=== PATIENT | female | born 1970 | race Caucasian/White ===

== ENCOUNTER → 2017-06-06 08:17 | Outpatient (CLI) | payer OTHER, SELFPAY ==
[2017-06-06 12:28] LABS: Absolute Lymphocyte Count 1.12 X10^3/ul (0.83-4.51); Absolute Neutrophil Count 2.2 X10^3/uL (2.0-7.7); Basophil# 0.03 X10^3/uL; Basophil% 0.8 % (0-1); Eosinophil# 0.12 X10^3/uL; Eosinophils% 3.1 % (0-5); Hematocrit 42.9 % (37-47); Hemoglobin 13.8 g/dl (12.0-15.0); Lymphocyte # 1.12 X10^3/ul (4.0); Mean Corp Hgb Conc 32.2 g/gl (32-36); Mean Corpuscular Hgb 29.7 pg (27.0-32.0); Mean Corpuscular Volume 92.5 fL (81-99); Mean Platelet Vol. 11.5 fl (6.2-12.0); Monocyte# 0.35 X10^3/uL; Monocyte% 9.1 % (0-10); Neutrophil # 2.23 X10^3/uL (2.7-7.7); Neutrophil % 57.7 % (47-70); Platelet Count 269 K/mm3 (150-450); RBC Distribution Width CV 13.4 % (11.6-14.6); RBC Distribution Width SD 44.3 fl (35.1-43.9); Red Blood Count 4.64 M/mm3 (4.2-5.4); White Blood Count 3.9 K/mm3 (4.4-11.0)
[2017-06-06 12:39] LABS: D-Dimer Quantitative (DVT/PE) < 0.27 FEU/ug/m (0.27-0.49)
[2017-06-06 12:43] LABS: POSITIVE COUNT NO; POSITIVE DIFFERENTIAL NO; POSITIVE MORPHOLOGY NO
[2017-06-06 12:44] LABS: Vitamin B12 535 pg/mL (211-911)
[2017-06-06 13:11] LABS: ALB/GLOB Ratio 0.9 RATIO (0.9-2.4); AST(SGOT) 15 U/L (15-37); Alanine Aminotransfer ALT/SGPT 21 U/L (13-56); Albumin, Serum 3.8 g/dL (3.2-5.0); Alkaline Phosphatase 53 U/L (45-117); Anion Gap 9 (5-15); BUN 17 mg/dL (7-18); Calcium,Total 9.4 mg/dL (8.5-10.1); Chloride 101 mmol/L (98-107); Creatinine, Serum 1.06 mg/dL (0.55-1.02); EST Glomerular Filtration Rate 60 mL/min (>60); Est Glom Filt Rate - Afr Amer 72 mL/min (>60); Globulin 4.2 g/dL (2.2-4.2); Glucose 86 mg/dL (74-106); Potassium 4.4 mmol/L (3.5-5.1); Sodium Level 137 mmol/L (136-145); Thyroid Stim Hormone (TSH) 2.22 uIU/mL (0.358-3.74)
== END ==
PROVIDERS: Family Provider Family Medicine; PCP Family Medicine; Visit Provider Family Medicine
DX: I95.9 Hypotension, unspecified (principal); R42 Dizziness and giddiness; E78.5 Hyperlipidemia, unspecified
CPT/HCPCS: 36415; 80053; 82533; 82607; 84443; 85025; 85379

== ENCOUNTER → 2017-09-16 17:00 | Outpatient (CLI) | payer OTHER, SELFPAY ==
--- NOTE | 2017-09-16 17:00 | DT_ITS ---
This patient was seen during an EMR downtime September 15, 2017 - September 22, 2017. This patient may have a combination of paper and electronic documentation or all paper documentation. All documentation is viewable within the e-chart portion of [facility] for each patient visit.
[2017-09-21 19:28] LABS: Vitamin B12 393 pg/mL (211-911); Vitamin D,25 Hydroxy 31.2 ng/mL (29.95-100.01)
[2017-09-22 09:51] LABS: CRP < 2.90 mg/L (0.0-3.0); T4 Free Direct 0.91 ng/dL (0.76-1.46); Thyroid Stim Hormone (TSH) 1.26 uIU/mL (0.358-3.74)
[2017-09-22 09:55] LABS: Hematocrit 39.4 % (37-47); Hemoglobin 12.5 g/dl (12.0-15.0); Mean Corpuscular Volume 96.6 fL (81-99); Red Blood Count 4.21 M/mm3 (4.2-5.4); White Blood Count 4.3 K/mm3 (4.4-11.0)
[2017-09-22 09:56] LABS: Absolute Lymphocyte Count 1.44 X10^3/ul (0.83-4.51); Absolute Neutrophil Count 2.3 X10^3/uL (2.0-7.7); Basophil# 0.02 X10^3/uL; Basophil% 0.5 % (0-1); Eosinophil# 0.17 X10^3/uL; Eosinophils% 3.9 % (0-5); Lymphocyte # 1.44 X10^3/ul (4.0); Lymphocyte % 33.3 % (19-41); Mean Corp Hgb Conc 31.7 g/gl (32-36); Mean Corpuscular Hgb 29.7 pg (27.0-32.0); Mean Platelet Vol. 11.4 fl (6.2-12.0); Monocyte# 0.38 X10^3/uL; Monocyte% 8.8 % (0-10); Neutrophil # 2.32 X10^3/uL (2.7-7.7); Neutrophil % 53.5 % (47-70); POSITIVE COUNT NO; POSITIVE DIFFERENTIAL NO; Platelet Count 248 K/mm3 (150-450); RBC Distribution Width CV 12.9 % (11.6-14.6); RBC Distribution Width SD 43.2 fl (35.1-43.9)
[2017-09-22 09:57] LABS: Erythrocyte Sedimentation Rate 3 mm/hr (0-20)
== END ==
PROVIDERS: Family Provider Family Medicine; PCP Family Medicine; Visit Provider Family Medicine
DX: G62.9 Polyneuropathy, unspecified (principal); I95.9 Hypotension, unspecified; R42 Dizziness and giddiness
CPT/HCPCS: 36415; 82306; 82607; 84439; 84443; 85025; 85652; 86140

== ENCOUNTER → 2018-05-07 13:10 | Outpatient (CLI) | payer OTHER, SELFPAY ==
--- NOTE | 2018-05-07 13:14 | RAD_ITS ---
STUDY: X-RAY - LUMBOSACRAL SPINE REASON FOR EXAM: Female, 47 years old. Radiculopathy. TECHNIQUE: 7 view(s) of the lumbosacral spine were obtained with flexion and extension views. COMPARISON: None FINDINGS: Normal lumbar lordosis. There is no substantial scoliosis. There is normal alignment of the vertebrae. Normal flexion and extension with no subluxations. Normal vertebral bodies and endplates. Normal disc space heights. Normal bilateral sacral ala, sacroiliac joints, and visualized sacrum. Normal visualized soft tissue structures. RAD/L/S Spine Comp/w Bending Views IMPRESSION: Normal x-ray examination of the lumbosacral spine. Electronically Signed: Jb Barreto MD at 15:20 EST , Service support ,
== END ==
PROVIDERS: Family Provider Family Medicine; PCP Family Medicine; Referring Provider Psychiatry & Neurology Neurology; Visit Provider Psychiatry & Neurology Neurology
DX: M54.16 Radiculopathy, lumbar region (principal)
CPT/HCPCS: 72114

== ENCOUNTER → 2018-07-06 16:04 | Outpatient (CLI) | payer OTHER, SELFPAY ==
[2018-07-06 18:16] LABS: Hemoglobin A1c 5.2 % (4.2-6.3)
[2018-07-06 18:57] LABS: HIV - WCH Non-Reactive (Nonreactive)
[2018-07-06 19:16] LABS: Rheumatoid Factor < 10.0 IU/mL (<15)
[2018-07-08 17:38] LABS: Immunoglobulin A 345 mg/dL (87-352); Immunoglobulin G 1246 mg/dL (700-1600); Immunoglobulin M 148 mg/dL (26-217); PROEL- Albumin 3.6 g/dL (2.9-4.4); PROEL- Alpha-1 Globulin 0.2 g/dL (0.0-0.4); PROEL- Alpha-2 Globulin 0.7 g/dL (0.4-1.0); PROEL- Beta Globulin 1.1 g/dL (0.7-1.3); PROEL- Gamma Globulin 1.5 g/dL (0.4-1.8); PROEL- Globulin, Total 3.5 g/dL (2.2-3.9); PROEL- TOTAL PROTEIN 7.1 g/dL (6.0-8.5); RNP Ab 0.3 AI (0.0-0.9); Smith Ab <0.2 AI (0.0-0.9)
[2018-07-10 17:17] LABS: Hep C Antibodies <0.1 s/co ratio (0.0-0.9)
[2018-07-10 17:24] LABS: ANTINUCLEAR ANTIBODIES DIRECT Negative (Negative)
== END ==
PROVIDERS: Family Provider Family Medicine; PCP Family Medicine; Referring Provider Psychiatry & Neurology Neurology; Visit Provider Psychiatry & Neurology Neurology
DX: R73.9 Hyperglycemia, unspecified (principal); R53.83 Other fatigue; G62.9 Polyneuropathy, unspecified
CPT/HCPCS: 36415; 82784; 83036; 84165; 86038; 86235; 86334; 86431; 86703; 86803

== ENCOUNTER → 2018-12-04 | Outpatient (CLI) | payer OTHER, SELFPAY ==
--- NOTE | 2018-12-04 16:57 | CT_ITS ---
STUDY: CT MAXILLOFACIAL SINUSES REASON FOR EXAM: Female, 47 years old. Sinusitis RADIATION DOSAGE (If Supplied By Facility): CTDIvol = ( 29.38 ) mGy, DLP = ( 488.69 ) mGycm TECHNIQUE: The patient was scanned in a multi detector CT scanner. High resolution axial imaging was performed without the administration of intravenous contrast material. Sagittal and coronal images were reconstructed. Individualized dose optimization techniques were used for this CT. COMPARISON: None. FINDINGS: FRONTAL SINUSES: Normal aeration, without mucosal inflammatory disease. ETHMOIDAL SINUSES: Left ethmoid sinus disease is present. The right ethmoid sinus is normal. MAXILLARY SINUSES: Normal aeration, without mucosal inflammatory disease. SPHENOIDAL SINUSES: Normal aeration, without mucosal inflammatory disease. There are normal uncinate processes, ethmoid bullae, and hiatus semilunaris. Normal bilateral middle turbinates. Normal bilateral inferior turbinates. Normal midline nasal septum. There is patency of the bilateral nasal airways. The visualized osseous structures are normal. The visualized bilateral orbital contents are normal. CT/Sinus/Facial Bone IMPRESSION: Left ethmoid sinus disease. Normal osseous structures. Electronically Signed: Jed Frausto, at 20:59 EDT Tel , Service support ,
== END | disposition home or self-care (01) ==
LOC: CT 16:49
PROVIDERS: Family Provider Family Medicine; PCP Family Medicine; Referring Provider Otolaryngology Otolaryngology/Facial Plastic Surgery; Visit Provider Otolaryngology Otolaryngology/Facial Plastic Surgery
DX: J32.9 Chronic sinusitis, unspecified (principal)
CPT/HCPCS: 70486

== ENCOUNTER → 2019-04-09 16:13 | Outpatient (CLI) | payer OTHER, SELFPAY ==
--- NOTE | 2019-04-09 16:20 | RAD_ITS ---
HISTORY: 3 images of the sacrum and coccyx. 2 months of pain in the elbow. No comparison imaging of any kind. Findings: There is abrupt angulation between the first and second coccygeal segments. There is widening to the disc space between the first and second coccygeal segments. No cortical break is perceived. Pelvic phleboliths are present. Sacral alae are normal. SI joints are symmetric. Pubic symphysis sclerosis is minimal. RAD/Sacrum-Coccyx min 2 Views IMPRESSION: Diastases at the space between the first and second coccygeal segments with angulation possibly related to ligamentous injury. at 0614 Reported and signed by: Bryan Watson MD Electronically Signed: Bryan Watson MD at 6:13 EST Tel , Service support ,
== END ==
PROVIDERS: Family Provider Family Medicine; PCP Family Medicine; Referring Provider Family Medicine; Visit Provider Family Medicine
DX: M53.3 Sacrococcygeal disorders, not elsewhere classified (principal)
CPT/HCPCS: 72220

== ENCOUNTER 2019-11-19 09:30 | Outpatient (RCR) | payer OTHER, SELFPAY ==
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
--- NOTE | 2020-02-14 18:24 | HP.PT.NRP ---
MAGGIE CHÁVEZ was seen in my office for initial evaluation on 11/02/19. The following Plan of Care was established for this patient: Initial Frequency: 2-3x /Week Initial Duration: 4-6 Weeks Patient/Client Instruction: Educate patient on: Condition, Plan of Care, Risk Factors, Benefits of Fitness Program For the Purpose of:: To improve self management Therapeutic Exercise to Include: Strength training, Body mechanics, Postural training, Neuromotor development, In an aquatic setting, Dynamic Lumbar Stabilization TENS: Yes IF ES: Yes Cryotherapy (ice pack, ice massage): Yes Thermo therapy (hot pack): Yes Ultrasound (thermal/non thermal): Yes For the Purpose of:: To decrease pain, To decrease swelling/inflammation, To increase ROM, To improve nutrient delivery to tissue This patient was last seen in our office 11/19/19. Pertinent comments regarding their Physical therapy will appear below: This patient has not returned to Physical Therapy and is appropriate to return to MD for further follow-up as needed. At this point I will be discontinuing this patient from physical therapy. I would be happy to see this patient again in the future if found appropriate by the physician. Thank you! Alix Prara, PT, Cert MDT
== END 2019-11-19 19:00 | disposition home or self-care (01) ==
LOC: PT 09:30
PROVIDERS: PCP Family Medicine; Referring Provider Family Medicine; Visit Provider Family Medicine
DX: M53.3 Sacrococcygeal disorders, not elsewhere classified (principal)
CPT/HCPCS: 97014; 97035; 97110; 97112; 97162; 97530; G0283

== ENCOUNTER → 2021-01-25 07:57 | Outpatient (CLI) | payer OTHER, SELFPAY ==
--- NOTE | 2021-01-25 08:03 | VDLE_ITS ---
Reason For Study: Swelling RIGHT LEFT CFV is compressible, spontaneous, phasic, CFV is compressible, spontaneous, phasic, competent and demonstrates normal competent, and demonstrates normal augmentation. augmentation. FV is compressible, spontaneous, phasic, FV is compressible, spontaneous, phasic, competent and demonstrates normal competent and demonstrates normal augmentation. augmentation. POP V is compressible, spontaneous, phasic, POP V is compressible, spontaneous, phasic, competent and demonstrates normal competent and demonstrates normal augmentation. augmentation. T/P Trunk is compressible. T/P Trunk is compressible. PTV is compressible. PTV is compressible. RT PerV is compressible. LT PerV is compressible. SFJ is INCOMPETENT and measures 0.69 x 0.80 SFJ is INCOMPETENT and measures 0.43 x 0.54 cm. cm. GSV proximal thigh measures 0.26 x 0.31 cm. GSV proximal thigh measures 0.23 x 0.29 cm. GSV at knee measures 0.15 x 0.16 cm. GSV at knee measures 0.15 x 0.16 cm. GSV is competent throughout. GSV is competent throughout. SSV at junction is competent and measures SSV at junction is competent and measures 0.11 x 0.13 cm. 0.17 x 0.18 cm. Procedure This is a venous duplex using B-mode, color flow and spectral Doppler. Exam performed in department. Technically difficult study due to vessel size. VL/Venous Duplex US - Nam Extrem Interpretation Summary Deep veins of the lower extremities are bilaterally patent and compressible seg mentally. There is no evidence of deep vein thrombosis on either side. Valvular competence appears in tact within the proximal deep venous systems bilaterally. The great saphenous veins appear bila terally patent and compressible segmentally. Sapheno-femoral junctions are bilaterally incompetent . Valvular competence appears to be intact segmentally within the great saphenous veins bi laterally. Small saphenous veins are patent and competent bilaterally. Ordering Physician: Carlos Sexton Referring Physician: Allen Berry Performed By: Tahira Frank RVT
== END ==
PROVIDERS: PCP Family Medicine; Referring Provider Surgery; Visit Provider Surgery
DX: M79.604 Pain in right leg (principal); M79.89 Other specified soft tissue disorders; M79.605 Pain in left leg
CPT/HCPCS: 93970

== ENCOUNTER → 2021-10-19 | Outpatient (CLI) | payer OTHER, SELFPAY | END | disposition home or self-care (01) | LOC: LABSPEC 15:04 | PROVIDERS: PCP Family Medicine; Referring Provider Family Medicine; Visit Provider Family Medicine | DX: N30.00 Acute cystitis without hematuria (principal) | CPT/HCPCS: 87077; 87086; 87088; 87186 ==

== ENCOUNTER → 2021-12-25 | Outpatient (CLI) | payer OTHER, SELFPAY | END | disposition home or self-care (01) | PROVIDERS: PCP Family Medicine; Visit Provider Family Medicine | DX: N30.00 Acute cystitis without hematuria (principal) | CPT/HCPCS: 87077; 87086; 87088; 87186 ==

== ENCOUNTER → 2022-06-08 | Outpatient (CLI) | payer OTHER, SELFPAY ==
[2022-06-08 14:49] LABS: Bacteria 0 SEEN /hpf (None Seen); Mucous, Urine 0 SEEN /hpf (<or=2+); Red Blood Cells-Urine 0 SEEN /hpf (0-5)
[2022-06-08 14:58] LABS: Color, Urine Yellow (Yellow); Glucose, Dipstick Normal (Normal); Ketone-Dipstick Negative (Negative); Leukocyte Esterase-Dipstick 25 /ul (Negative); Nitrite-Dipstick Negative (Negative); Occult Blood-Urine 25 /ul (Negative); Protein-Dipstick Negative (Negative); Specific Gravity, Urine 1.005 (1.002-1.030); Urine Bilirubin Dipstick Negative (Negative); Urine Clarity Clear (Clear); Urine Urobilinogen Normal (Normal)
[2022-06-08 15:25] LABS: Squamous Epithelial Cells - UA 0-5 SEEN /hpf (5-10); White Blood Cells 0-5 SEEN /hpf (0-5)
== END | disposition home or self-care (01) ==
PROVIDERS: PCP Family Medicine; Visit Provider Physician Assistant Medical
DX: R30.0 Dysuria (principal)
CPT/HCPCS: 81001; 87086; 87088

== ENCOUNTER 2022-06-17 07:54 | Emergency (ER) | payer OTHER, SELFPAY ==
[2022-06-17 07:54] VITALS: BP 136/70; PULSE 60; RESP 18; TEMP 36.2; O2SAT 100; BMI 20.9
--- NOTE | 2022-06-17 08:04 | EDS_ITS ---
HPI HPI - Female History of Present Illness Chief Complaint: Complaint Narrative Narrative: 51-year-old female who denies significant past medical history presents with hematuria and right flank pain along with burning with urination for the last 9 days. She states her symptoms began approximately 9 days ago, a week ago on Friday. She went to urgent care because of bright red blood in her urine and burning with urination. She has had previous UTIs in the past. She denies any fever but may have felt chilled over the week. She has right low back pain. She was diagnosed with a UTI and placed on Macrobid for approximately 7 days. She finished her antibiotics on Friday, 4 days ago. While she noted mild improvement in her symptoms, they never completely resolved. This morning, she thought she started her menses again because she had bright red blood, but this time it was in her urine again. She denies any vaginal bleeding. No exacerbating or alleviating factors. She denies daily medication use except for supplements. No blood thinners, but she did take Advil this morning. [facility] Medical History Acute maxillary sinusitis, unspecified Home Medications sulfamethoxazole 800 mg-trimethoprim 160 mg tablet (Bactrim DS) 1 tab PO BID #14 tabs 06/17/22 [Rx Last Taken Unknown] Allergy/AdvReac Type Severity Reaction Status Date / Time No Known Allergies Allergy Unverified 06/08/22 08:35 Family History Other Heart disease Social History Smoking Status: Never smoker ROS ROS ED ROS Narrative Constitutional: No fever, no chills. HEENT: No sore throat. No neck pain. No loss of vision. No rhinorrhea. Cardiovascular: No chest pain. No palpitations. No pedal edema. Respiratory: No cough, no shortness of breath. Abdominal: No abdominal pain. No nausea. No vomiting. Genitourinary: Positive burning with urination. Positive hematuria. Right low back pain. Musculoskeletal: No myalgias. No arthralgias. Neurologic: No headaches. No dizziness. No lightheadedness. Skin: No rash. No change in color. Psychiatric: No depression. No anxiety. EXAM Physical Exam Narrative Exam Narrative: Afebrile. Vital signs noted. HEENT: Normocephalic. Atraumatic. PERRL, EOMI. Neck soft and supple. No point tenderness or step off. Cardiovascular: Regular rate and rhythm. No murmurs, rubs, or gallops appreciated. Respiratory: No tachypnea. Lungs clear to auscultation bilaterally. Gastrointestinal: Abdomen soft, nontender, with normoactive bowel sounds. No rebound or guarding. No CVA tenderness to percussion bilaterally. Neurological: Awake. Alert. Nonfocal, nonlateralizing. Skin: No rash. Normal color. No pallor. Musculoskeletal: No pedal edema. Full range of motion extremities. Const Vital Signs: 06/17/22 07:54 Temperature 97.2 F L Temperature Source Temporal Pulse Rate 60 Respiratory Rate 18 Blood Pressure 136/70 H Blood Pressure Mean 92 Pulse Ox 100 Oxygen Delivery Method Room Air MDM MDM MDM Narrative Medical decision making narrative: With her finishing a week's worth of antibiotics, she could have a continued UTI secondary to antibiotic resistance. Additionally, with her right low back pain and gross hematuria, she may have ureterolithiasis. She declines pain medications currently as she has already taken Advil this morning. Comprehensive work-up was pursued to rule out ureterolithiasis. I do feel CT imaging is indicated. I will also obtain a CBC and a BMP to make sure that she has not lost a large amount of blood, and additionally to check her renal function. She was administered IV fluids at a rate of 250 mL/h. Serum test was also obtained although she states her has had a vasectomy. I reviewed the patient's laboratory work. She has normal white count of 5.2, hemoglobin normal at 13.6. In review of her BMP, she has slightly elevated BUN of 19 with creatinine 1.09. Glucose 96 and normal. Normal anion gap of 5. Serum is negative. I reviewed her radiology report for her CT which shows no evidence of bladder polyps, no ureterolithiasis. No evidence of acute process. At this point in time, after review of her urinalysis, she does have 25-50 red cells and 25-50 WBCs. This will be her second round of antibiotics so I sent her urine for culture. She was started on Bactrim DS to take twice daily for the next week. She declined her first dose of antibiotic here in the emergency department. Prescription was written. She will follow-up with her primary care provider in 3 to 5 days. I feel she can be discharged safely home with follow-up. Return instructions to the emergency department were reviewed. Disposition is discharged home in stable condition. Lab Data Attestation: I reviewed the patient's lab results. Labs: Laboratory Results - last 24 hr 06/17/22 06/17/22 06/17/22 08:26 08:26 08:26 WBC 5.2 RBC 4.53 Hgb 13.6 Hct 41.9 MCV 92.5 MCH 30.0 MCHC 32.5 RDW Std Deviation 42.5 RDW Coeff of Rae 12.4 Plt Count 265 MPV 9.9 Immature Gran % (Auto) 0.200 Neut % (Auto) 68.1 Lymph % (Auto) 22.8 Frontier % (Auto) 7.5 Eos % (Auto) 0.8 Baso % (Auto) 0.6 Absolute Neuts (auto) 3.6 Absolute Lymphs (auto) 1.19 Nucleated RBC % 0 Sodium 137 Potassium 4.3 Chloride 104 Carbon Dioxide 28.0 Anion Gap 5 BUN 19 H Creatinine 1.09 H Estim Creat Clear Calc 61.43 Est GFR (MDRD) Af Amer 69 Est GFR (MDRD) Non-Af 57 L BUN/Creatinine Ratio 17.4 Glucose 96 Calcium 9.6 Serum , Qual NEGATIVE Urine Color Urine Clarity Urine pH Ur Specific [place] Urine Protein Urine Glucose (UA) Urine Ketones Urine Occult Blood Urine Nitrite Urine Bilirubin Urine Urobilinogen Ur Leukocyte Esterase Urine RBC Urine WBC Ur Squamous Epith Cells Urine Bacteria Urine Mucus 06/17/22 08:51 WBC RBC Hgb Hct MCV MCH MCHC RDW Std Deviation RDW Coeff of Rae Plt Count MPV Immature Gran % (Auto) Neut % (Auto) Lymph % (Auto) Frontier % (Auto) Eos % (Auto) Baso % (Auto) Absolute Neuts (auto) Absolute Lymphs (auto) Nucleated RBC % Sodium Potassium Chloride Carbon Dioxide Anion Gap BUN Creatinine Estim Creat Clear Calc Est GFR (MDRD) Af Amer Est GFR (MDRD) Non-Af BUN/Creatinine Ratio Glucose Calcium Serum , Qual Urine Color Yellow Urine Clarity Sl. Cloudy Urine pH 7.0 Ur Specific [place] 1.005 Urine Protein 30 H Urine Glucose (UA) Normal Urine Ketones Negative Urine Occult Blood 250 H Urine Nitrite Negative Urine Bilirubin Negative Urine Urobilinogen Normal Ur Leukocyte Esterase 500 H Urine RBC 25-50 SEEN Urine WBC 25-50 SEEN Ur Squamous Epith Cells 0-5 SEEN Urine Bacteria 1+ Urine Mucus 0 SEEN Radiography Diagnostic Testing: Clinical Impression(s) from Imaging Studies Abdomen/Pelvis CT 06/17/22 08:04 IMPRESSION: Normal unenhanced CT of the abdomen and pelvis. Electronically Signed: Asa Hankins MD at 9:16 EST , Discharge Plan Triage Chief Complaint: Complaint ED Provider: Rizwan Lazcano Dx/Rx/DC Orders Clinical Impression: Dysuria, UTI (urinary tract infection), Hematuria Instructions: ED Hematuria, ED Cystitis Female Adult Prescriptions: New sulfamethoxazole-trimethoprim [Bactrim DS] 800-160 mg tablet 1 tab PO BID Qty: 14 0RF Primary Care Provider: Care Physician,No Primary Referrals: Allen Berry MD [Non-Staff] - 3-5 Days if not improving Disposition Disposition: Home, Self Care
--- NOTE | 2022-06-17 08:04 | CT_ITS ---
STUDY: CT ABDOMEN AND PELVIS WITHOUT CONTRAST REASON FOR EXAM: Female, 51 years old. UTI. Recently treated. Microscopic hematuria. RADIATION DOSAGE (If Supplied By Facility): CTDIvol = ( 6.61 ) mGy, DLP = ( 336.81 ) mGycm TECHNIQUE: Transaxial images were obtained from the dome of the diaphragm to the symphysis pubis without oral contrast, and without intravenous contrast. Sagittal and coronal images were reconstructed. Individualized dose optimization techniques were used for this CT. COMPARISON: None. FINDINGS: The visualized lung bases are unremarkable. The visualized portions of the heart are within normal limits. Normal liver. Normal gallbladder and extrahepatic biliary system. Normal spleen. Normal pancreas. Normal bilateral adrenal glands. Normal right kidney. Normal left kidney. Normal visualized stomach. Normal small intestine. Normal colon. The appendix is visualized and appears normal. Normal abdominal aorta. Normal inferior vena cava. Normal retroperitoneum. Normal urinary bladder. Enlarged fibroid uterus. Normal abdominal wall. Normal osseous structures. CT/Abdomen/Pelvis without Cont IMPRESSION: Normal unenhanced CT of the abdomen and pelvis. Electronically Signed: Asa Hankins MD at 9:16 EST ,
[2022-06-17] MEDS: 0.9% Normal Saline 1,000 ML 250 ML IV (08:25)
[2022-06-17 08:33] LABS: Absolute Lymphocyte Count 1.19 X10^3/uL (0.83-4.51); Absolute Neutrophil Count 3.6 X10^3/uL (2.0-7.7); Basophil# 0.03 X10^3/uL; Basophil% 0.6 % (0-1); Eosinophil# 0.04 X10^3/uL; Eosinophils% 0.8 % (0-5); Hematocrit 41.9 % (37-47); Hemoglobin 13.6 g/dL (12.0-15.0); Lymphocyte # 1.19 X10^3/ul (0.83-4.51); Lymphocyte % 22.8 % (19-41); Mean Corp Hgb Conc 32.5 g/dL (32-36); Mean Corpuscular Volume 92.5 fL (81-99); Mean Platelet Vol. 9.9 fl (6.2-12.0); Monocyte# 0.39 X10^3/uL; Monocyte% 7.5 % (0-10); NRBC Flagged by Analyzer 0 % (0-5); Neutrophil # 3.57 X10^3/uL (2.7-7.7); Neutrophil % 68.1 % (47-70); Platelet Count 265 K/mm3 (150-450); RBC Distribution Width CV 12.4 % (11.6-14.6); RBC Distribution Width SD 42.5 fl (35.1-43.9); Red Blood Count 4.53 M/mm3 (4.2-5.4); White Blood Count 5.2 K/mm3 (4.4-11.0)
[2022-06-17 08:40] LABS: Internal QC Validated? YES +Cl - CLEAR BKGD; Pregnancy, Serum, hCG Quali. NEGATIVE Negative
[2022-06-17 08:47] LABS: Anion Gap 5 (5-15); BUN 19 mg/dL (7-18); BUN/Creat Ratio 17.4 RATIO (10-20); Calcium,Total 9.6 mg/dL (8.5-10.1); Chloride 104 mmol/L (98-107); Creatinine, Serum 1.09 mg/dL (0.55-1.02); EST Glomerular Filtration Rate 57 mL/min (>60); Est Glom Filt Rate - Afr Amer 69 mL/min (>60); Estimated Creatinine Clearance 61.43 ml/min; Glucose 96 mg/dL (74-106); Potassium 4.3 mmol/L (3.5-5.1); Sodium Level 137 mmol/L (136-145)
[2022-06-17 08:57] LABS: Mucous, Urine 0 SEEN /hpf (<or=2+)
[2022-06-17 08:59] LABS: Color, Urine Yellow (Yellow); Glucose, Dipstick Normal (Normal); Ketone-Dipstick Negative (Negative); Leukocyte Esterase-Dipstick 500 /ul (Negative); Nitrite-Dipstick Negative (Negative); Occult Blood-Urine 250 /ul (Negative); Protein-Dipstick 30 mg/dl (Negative); Specific Gravity, Urine 1.005 (1.002-1.030); Urine Bilirubin Dipstick Negative (Negative); Urine Clarity Sl. Cloudy (Clear); Urine Urobilinogen Normal (Normal)
[2022-06-17 09:10] LABS: Bacteria 1+ /hpf (None Seen); Red Blood Cells-Urine 25-50 SEEN /hpf (0-5); White Blood Cells 25-50 SEEN /hpf (0-5)
[2022-06-17 09:11] LABS: Squamous Epithelial Cells - UA 0-5 SEEN /hpf (5-10)
== END 2022-06-17 11:09 | disposition home or self-care (01) ==
PROVIDERS: Emergency Provider Emergency Medicine; Visit Provider Emergency Medicine
DX: N39.0 Urinary tract infection, site not specified (principal); R31.9 Hematuria, unspecified; R30.0 Dysuria
CPT/HCPCS: 74176; 80048; 81001; 84703; 85025; 87077; 87086; 87088; 87186; 99282; J7030

== ENCOUNTER 2022-12-16 21:33 | Emergency (ER) | payer OTHER, SELFPAY ==
[2022-12-16 21:34] VITALS: BP 114/62; PULSE 72; RESP 16; TEMP 36.2; BMI 20.2
--- NOTE | 2022-12-16 21:57 | EX.ED.DYSGE1 ---
HPI History of Present Illness Chief Complaint: Abd Pain Narrative Narrative: 52-year-old female who denies significant past medical history presents with UTI type symptoms that began this morning. She states that she started having pain with urination, and burning. It has gotten progressively worse throughout the day. She states that she seems to get frequent urinary tract infections, the last being in July when she had blood in her urine. She has noticed hematuria today. She denies any fever but has had chills. No nausea or vomiting. No back pain. No exacerbating or alleviating factors. Prior similar symptoms: Yes PFSH PFSH Medical History Acute maxillary sinusitis, unspecified Home Medications sulfamethoxazole 800 mg-trimethoprim 160 mg tablet (Bactrim DS) 1 tab PO BID #14 tabs 06/17/22 [Rx Last Taken Unknown] sulfamethoxazole 800 mg-trimethoprim 160 mg tablet (Bactrim DS) 1 tab PO BID #14 tabs 12/16/22 [Rx Last Taken Unknown] Allergy/AdvReac Type Severity Reaction Status Date / Time No Known Allergies Allergy Verified 12/16/22 21:38 Family History Other Heart disease Social History Smoking Status: Never smoker ROS ROS ED ROS Narrative Constitutional: No fever, no chills. HEENT: No sore throat. No neck pain. No loss of vision. No rhinorrhea. Cardiovascular: No chest pain. No palpitations. No pedal edema. Respiratory: No cough, no shortness of breath. Abdominal: No abdominal pain. No nausea. No vomiting. Genitourinary: Positive dysuria. Positive hematuria. Mild urinary frequency. Musculoskeletal: No myalgias. No arthralgias. Neurologic: No headaches. No dizziness. No lightheadedness. Skin: No rash. No change in color. Psychiatric: No depression. No anxiety. EXAM Physical Exam Narrative Exam Narrative: Afebrile. Vital signs noted. HEENT: Normocephalic. Atraumatic. PERRL, EOMI. Neck soft and supple. No point tenderness or step off. Cardiovascular: Regular rate and rhythm. No murmurs, rubs, or gallops appreciated. Respiratory: No tachypnea. Lungs clear to auscultation bilaterally. Gastrointestinal: Abdomen soft, nontender, with normoactive bowel sounds. No rebound or guarding. No CVA tenderness to percussion bilaterally. Neurological: Awake. Alert. Nonfocal, nonlateralizing. Skin: No rash. Normal color. No pallor. Musculoskeletal: No pedal edema. Full range of motion extremities. Const Vital Signs: 12/16/22 21:34 12/16/22 21:34 Temperature 97.2 F L 97.2 F L Temperature Source Temporal Temporal Pulse Rate 72 72 Respiratory Rate 16 16 Blood Pressure 114/62 114/62 Blood Pressure Mean 79 79 MDM MDM MDM Narrative Medical decision making narrative: I have low concern for ureterolithiasis, and think she probably has more of a simple cystitis. Pyelonephritis is lower on the differential based on her clinical exam. I do not feel that laboratory work is indicated/blood work. Her urine will be sent for analysis along with culture as she states she gets frequent UTIs. She states that Bactrim seem to work for her last time she had a UTI. Additionally as she is 52, has not gone through menopause, I will obtain a urine test. I reviewed her laboratory work and she has RBCs greater than 100 with 50-100 WBCs with 0 squamous epithelial cells and 2+ bacteria, negative nitrites. This was sent for culture. She was given her first dose of Bactrim here in the emergency department and a prescription written to take twice a day for the next week. Additionally, she states that she bought Azo [id number], but did not want to take it because she read the back of the box, and does not want any side effects listed. At this point in time, I feel she be discharged safely home with follow-up to her primary care provider. Return instructions were reviewed. Disposition is discharged home in stable condition. History & Record Review Discussion w/independent historian: Patient Additional record(s) reviewed:: Prior ED visit and Prior labs Lab Data Attestation: I reviewed the patient's lab results. Labs: Laboratory Results - last 24 hr 12/16/22 22:06 Urine Color Yellow Urine Clarity Clear Urine pH 7.0 Ur Specific [place] 1.010 Urine Protein 30 H Urine Glucose (UA) Normal Urine Ketones Negative Urine Occult Blood 250 H Urine Nitrite Negative Urine Bilirubin Negative Urine Urobilinogen Normal Ur Leukocyte Esterase 500 H Urine RBC > 100 SEEN Urine WBC 50-100 SEEN Ur Squamous Epith Cells 0 SEEN Urine Bacteria 2+ Urine Mucus 0 SEEN Urine Test Negative Discharge Plan Triage Chief Complaint: Abd Pain ED Provider: Rizwan Lazcano Dx/Rx/DC Orders Clinical Impression: UTI (urinary tract infection), Hematuria Instructions: ED Hematuria, ED Cystitis Female Adult Prescriptions: New sulfamethoxazole-trimethoprim [Bactrim DS] 800-160 mg tablet 1 tab PO BID Qty: 14 0RF No Action sulfamethoxazole-trimethoprim [Bactrim DS] 800-160 mg tablet 1 tab PO BID Qty: 14 0RF Primary Care Provider: Care Physician,No Primary Referrals: Ruth Palmer MD [Med Staff - Referral Specialist] - 3-5 Days if not improving Care Physician,No Primary [Primary Care Provider] - Activity Restrictions/Additional Instructions: Follow-up with your primary care provider in 3 to 5 days if not improving. You have been referred to a primary care physician if you do not have 1. Take all of the antibiotics as prescribed until course of therapy is complete. Return with fever, increased pain, inability to take your antibiotic, new or worsening symptoms. Disposition Disposition: Home, Self Care
[2022-12-16 22:10] LABS: Mucous, Urine 0 SEEN /hpf (<or=2+); Squamous Epithelial Cells - UA 0 SEEN /hpf (5-10)
[2022-12-16 22:16] LABS: Color, Urine Yellow (Yellow); Glucose, Dipstick Normal (Normal); Ketone-Dipstick Negative (Negative); Leukocyte Esterase-Dipstick 500 /ul (Negative); Nitrite-Dipstick Negative (Negative); Occult Blood-Urine 250 /ul (Negative); Protein-Dipstick 30 mg/dl (Negative); Urine Bilirubin Dipstick Negative (Negative); Urine Clarity Clear (Clear); Urine Urobilinogen Normal (Normal)
[2022-12-16 22:40] LABS: Bacteria 2+ /hpf (None Seen); Red Blood Cells-Urine > 100 SEEN /hpf (0-5); White Blood Cells 50-100 SEEN /hpf (0-5)
[2022-12-16 22:53] LABS: Internal QC Validated? YES +Cl - CLEAR BKGD; Pregnancy, Urine Negative Negative; Record Kit Lot#,Urine Preg 667200
[2022-12-16] MEDS: Smz/Tmp Ds Tablet 1 TABLET PO (23:05)
== END 2022-12-16 23:07 | disposition home or self-care (01) ==
PROVIDERS: Emergency Provider Emergency Medicine; Visit Provider Emergency Medicine
DX: N39.0 Urinary tract infection, site not specified (principal); R31.9 Hematuria, unspecified
CPT/HCPCS: 81001; 81025; 87077; 87086; 87088; 87186; 99283

== ENCOUNTER → 2022-12-24 | Outpatient (CLI) | payer OTHER, SELFPAY ==
[2022-12-24 10:09] LABS: Absolute Lymphocyte Count 1.25 X10^3/uL (0.83-4.51); Absolute Neutrophil Count 0.9 X10^3/uL (2.0-7.7); Basophil# 0.04 X10^3/uL; Basophil% 1.5 % (0-1); Eosinophil# 0.09 X10^3/uL; Eosinophils% 3.4 % (0-5); Hematocrit 39.3 % (37-47); Hemoglobin 12.8 g/dL (12.0-15.0); Lymphocyte # 1.25 X10^3/ul (0.83-4.51); Lymphocyte % 46.8 % (19-41); Mean Corp Hgb Conc 32.6 g/dL (32-36); Mean Corpuscular Hgb 30.1 pg (27.0-32.0); Mean Corpuscular Volume 92.5 fL (81-99); Mean Platelet Vol. 10.1 fl (6.2-12.0); Monocyte# 0.37 X10^3/uL; Monocyte% 13.9 % (0-10); NRBC Flagged by Analyzer 0 % (0-5); Neutrophil # 0.92 X10^3/uL (2.7-7.7); Neutrophil % 34.4 % (47-70); POSITIVE DIFFERENTIAL YES; Platelet Count 249 K/mm3 (150-450); RBC Distribution Width CV 12.5 % (11.6-14.6); RBC Distribution Width SD 42.4 fl (35.1-43.9); Red Blood Count 4.25 M/mm3 (4.2-5.4); White Blood Count 2.7 K/mm3 (4.4-11.0)
[2022-12-24 10:16] LABS: Differential Indicated SCAN CRITERIA MET
[2022-12-24 10:46] LABS: Vitamin B12 534 pg/mL (211-911)
[2022-12-24 10:58] LABS: AST(SGOT) 21 U/L (15-37); Alanine Aminotransfer ALT/SGPT 21 U/L (13-56); Albumin, Serum 3.7 g/dL (3.2-5.0); Alkaline Phosphatase 45 U/L (45-117); Anion Gap 7 (5-15); BUN 15 mg/dL (7-18); BUN/Creat Ratio 11.7 RATIO (10-20); Calcium,Total 8.9 mg/dL (8.5-10.1); Chloride 107 mmol/L (98-107); Cholesterol 170 mg/dL (200); Creatinine, Serum 1.28 mg/dL (0.55-1.02); EST Glomerular Filtration Rate 47 mL/min (>60); Est Glom Filt Rate - Afr Amer 57 mL/min (>60); Ferritin 66 ng/mL (8-252); Globulin 3.7 g/dL (2.2-4.2); Glucose 99 mg/dL (74-106); High Density Lipoprotein 55 mg/dL; Iron 67 ug/dL (50-170); Potassium 4.3 mmol/L (3.5-5.1); Protein, Total 7.4 g/dL (6.4-8.2); Sodium Level 139 mmol/L (136-145); T4 Free Direct 0.84 ng/dL (0.76-1.46); Thyroid Stim Hormone (TSH) 3.38 uIU/mL (0.358-3.74); Triglycerides 81 mg/dL; Very Low Density Lipoprotein 16 mg/dL (5-40)
== END | disposition home or self-care (01) ==
LOC: MTLAB 08:54
PROVIDERS: PCP Nurse Practitioner Family; Visit Provider Nurse Practitioner Family
DX: Z00.01 Encounter for general adult medical examination with abnormal findings (principal); R53.83 Other fatigue
CPT/HCPCS: 36415; 80053; 80061; 82306; 82607; 82728; 83540; 84439; 84443; 85025

== ENCOUNTER 2023-03-05 23:18 | Emergency (ER) | payer OTHER, SELFPAY ==
[2023-03-05 23:18] VITALS: BP 128/63; PULSE 73; RESP 16; TEMP 36.9; O2SAT 100; BMI 21.3
[2023-03-06 00:14] LABS: Mucous, Urine 0 SEEN /hpf (<or=2+)
[2023-03-06] MEDS: Ceftriaxone 1 GM/50 ML BAG IV (00:16)
[2023-03-06] MEDS: Phenazopyridine 95 MG Tablet 190 MG PO (00:18)
[2023-03-06 00:19] LABS: Glucose, Dipstick Normal (Normal); Ketone-Dipstick Negative (Negative); Leukocyte Esterase-Dipstick 500 /ul (Negative); Nitrite-Dipstick Negative (Negative); Occult Blood-Urine 250 /ul (Negative); Protein-Dipstick 30 mg/dl (Negative); Urine Bilirubin Dipstick Negative (Negative); Urine Clarity Sl. Cloudy (Clear); Urine Urobilinogen Normal (Normal)
[2023-03-06 00:24] LABS: Color, Urine SEE COMMENT BELOW (Yellow)
[2023-03-06 00:29] LABS: Bacteria 2+ /hpf (None Seen); Red Blood Cells-Urine 5-10 SEEN /hpf (0-5); Squamous Epithelial Cells - UA 0-5 SEEN /hpf (5-10); White Blood Cells 25-50 SEEN /hpf (0-5)
--- NOTE | 2023-03-06 00:56 | EDS_ITS ---
HPI History of Present Illness Chief Complaint: Complaint Informant: patient and spouse/S.O. Narrative Narrative: Patient is a 52-year-old female with past medical history of recurrent UTIs and previous thrush. She states that in the last 2 to 3 hours she has had increased urinary frequency urgency and dysuria. She denies any vaginal discharge or concern for STDs or concern for . Denies any fevers chills or back pain. States that the symptoms are consistent with her previous UTIs and secondary to this she presents for evaluation [facility] Medical History Acute maxillary sinusitis, unspecified Home Medications sulfamethoxazole 800 mg-trimethoprim 160 mg tablet (Bactrim DS) 1 tab PO BID #14 tabs 06/17/22 [Rx Last Taken Unknown] sulfamethoxazole 800 mg-trimethoprim 160 mg tablet (Bactrim DS) 1 tab PO BID #14 tabs 12/16/22 [Rx Last Taken Unknown] cephalexin 500 mg capsule 500 mg PO TID 7 days #21 caps 03/06/23 [Rx Last Taken Unknown] fluconazole 150 mg tablet 150 mg PO DAILY 1 dose #1 TAB 03/06/23 [Rx Last Taken Unknown] phenazopyridine 200 mg tablet (Pyridium) 200 mg PO TID PRN pain 3 days #9 tabs 03/06/23 [Rx Last Taken Unknown] Allergy/AdvReac Type Severity Reaction Status Date / Time No Known Allergies Allergy Verified 12/16/22 21:38 Family History Other Heart disease Social History Smoking Status: Never smoker ROS [facility] ED Constitutional Constitutional ED: Denies chills or fever(s) ENT ENT ED: Denies sore throat Cardiovascular Cardiovascular: Denies chest pain Respiratory/Chest Respiratory/Chest: Denies cough or dyspnea Gastrointestinal Gastrointestinal: Reports abdominal pain; Denies diarrhea, nausea or vomiting Genitourinary Genitourinary ED: Reports dysuria and urinary frequency Musculoskeletal Musculoskeletal: Denies back pain or myalgias Integumentary Denies rash Neurologic Neurologic: Denies headache(s) Hematologic/Lymphatic Hematologic/Lymphatic: Denies easy bleeding or easy bruising EXAM Physical Exam Const Vital Signs: 03/05/23 23:18 Temperature 98.4 F Temperature Source Temporal Pulse Rate 73 Respiratory Rate 16 Blood Pressure 128/63 H Blood Pressure Mean 84 Pulse Ox 100 Oxygen Delivery Method Room Air Positive well nourished and well developed General Appearance ED: well developed HEENT HEENT Narrative: Normocephalic atraumatic Eyes PERRL and EOMs intact bilaterally General Eye ED: Negative for scleral icterus Neck supple Resp normal respiratory effort and clear to auscultation bilaterally Cardio regular rate and regular rhythm GI non-distended GI Narrative: Abdomen is soft and nondistended with normal active bowel sounds. There is pain with palpation in the suprapubic region without voluntary guarding or rigidity. No pulsatile mass or fluid wave Auscultation: normoactive bowel sounds Palpation: soft Back/Spine no CVA tenderness Extremity normal to inspection Neuro oriented x3, CN's II-XII intact bilaterally and no sensory deficits noted Sensorium / Orientation: alert Motor Exam: strength 5/5 throughout Psych mental status grossly normal Skin no rashes or lesions noted General Skin Exam: Negative for jaundice MDM MDM MDM Narrative Medical decision making narrative: Patient presented to the ER with stable vitals. She reported frequency urgency and dysuria similar nature to her previous UTIs. Differential diagnosis is for urinary tract infection versus pyelonephritis versus vaginal infection versus allergic urethritis. As patient is hemodynamically stable without flank pain I do not feel need for imaging studies or blood work but patient can simply be tested with a urine sample. UA showed changes consistent with infection as there is +2 bacteria with no skin cells and multiple white blood cells as well as positive leukocyte esterase. Therefore the patient was given Rocephin secondary to her reported frequency of UTIs and the urine was sent for culture. However as the patient is not immunosuppressed and vitals are stable I do not feel there is need for blood work or CT scan as her physical exam does not suggest pyelonephritis or kidney stone. She will be discharged home on antibiotics while urine culture is pending History & Record Review Discussion w/independent historian: Patient and Significant other Lab Data Attestation: I reviewed the patient's lab results. Labs: Laboratory Results - last 24 hr 03/05/23 23:43 Urine Color SEE COMMENT BELOW Urine Clarity Sl. Cloudy Urine pH 7.[address] 1.010 Urine Protein 30 H Urine Glucose (UA) Normal Urine Ketones Negative Urine Occult Blood 250 H Urine Nitrite Negative Urine Bilirubin Negative Urine Urobilinogen Normal Ur Leukocyte Esterase 500 H Urine RBC 5-10 SEEN Urine WBC 25-50 SEEN Ur Squamous Epith Cells 0-5 SEEN Urine Bacteria 2+ Urine Mucus 0 SEEN Discharge Plan Triage Chief Complaint: Complaint ED Provider: Oz Gentile Dx/Rx/DC Orders Clinical Impression: Acute hemorrhagic cystitis Instructions: UTIs Women Prescriptions: New cephalexin 500 mg capsule 500 mg PO TID 7 Days Qty: 21 0RF phenazopyridine [Pyridium] 200 mg tablet 200 mg PO TID PRN (Reason: pain) 3 Days Qty: 9 0RF fluconazole 150 mg tablet 150 mg PO DAILY Qty: 1 0RF Rx Instructions: Take once antibiotics are finished No Action sulfamethoxazole-trimethoprim [Bactrim DS] 800-160 mg tablet 1 tab PO BID Qty: 14 0RF sulfamethoxazole-trimethoprim [Bactrim DS] 800-160 mg tablet 1 tab PO BID Qty: 14 0RF Primary Care Provider: Bia Carranza Referrals: Bia Carranza, [facility] [Primary Care Provider] - Activity Restrictions/Additional Instructions: Your urine showed signs of infection with trace blood consistent with your exam. Take the antibiotic as directed to help resolve symptoms which will typically take 48 to 72 hours. Your urine was sent for culture and if there is need to change your antibiotic you should be notified. If you feel like you are having worsening of symptoms please return for repeat evaluation Disposition Disposition: Home, Self Care Discharge Date/Time: 03/06/23 01:07
[2023-03-06] MEDS: Fluconazole 100 MG Tablet 150 MG PO (01:03)
== END 2023-03-06 01:07 | disposition home or self-care (01) ==
PROVIDERS: Emergency Provider Emergency Medicine; PCP Nurse Practitioner Family; Visit Provider Emergency Medicine
DX: N30.01 Acute cystitis with hematuria (principal)
CPT/HCPCS: 81001; 87077; 87086; 87088; 87186; 96365; 99283; J7030

== ENCOUNTER → 2023-03-31 | Outpatient (CLI) | payer OTHER, SELFPAY | END | disposition home or self-care (01) | LOC: LABSPEC 10:47 | PROVIDERS: PCP Nurse Practitioner Family; Referring Provider Nurse Practitioner Family; Visit Provider Nurse Practitioner Family | DX: N39.0 Urinary tract infection, site not specified (principal) | CPT/HCPCS: 87086; 87088 ==

== ENCOUNTER → 2023-05-16 | Outpatient (CLI) | payer OTHER, SELFPAY ==
--- OUTSIDE RECORDS SUMMARY | 2023-05-16 18:02 | XMS RPT_ITS | CCD ---
Author Name Unknown Address [address] [facility] [address] [place] [address] Organization [facility] Care Team Providers Care 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 Name Role Phone Ann Marie Berry MD Primary Care Provider 1( [phone] TRINA KAISER Attending Unavailable TRINA KAISER Referring Unavailable ANN MARIE BERRY Primary Care Unavailable TRINA KAISER Referring Unavailable ANN MARIE BERRY Primary Care Unavailable Stephany Bravo Attending Unavailable Stephany Bravo Referring Unavailable ANN MARIE BERRY Primary Care Unavailable Allergies Allergy Classification Reported Allergen(s) Allergy Type Date of Onset Reaction(s) Facility (7 sources) [facility] [Other] Propensity to adverse reactions [address] [place] [address] Work Phone: (1 source) OTHER; Translations: [OTHER] Propensity to adverse reactions (disorder) [address] [place] [address] Repository Medications Completed/Discontinued Medications Medication Drug Class(es) Dates Sig (Normalized) Sig (Original) calcium carbonate 500 mg chewable tablet (7 sources) Start: 04-02-2005 CALCIUM ANTACID 500 MG CHEWABLE TAB Take one(1) tablet daily. 0 04/02/2005 Active Problems Active Problems Problem Classification Problem Date Documented Date Episodic/Chronic Disorders of lipid metabolism (7 sources) Hyperlipidemia; Translations: [Hyperlipidemia, unspecified] Onset: 06-06-2017 12-28-2019 Chronic Nonmalignant breast conditions (1 source) Breast finding ; Translations: [Dense breast tissue] 01-27-2023 Episodic Other female genital disorders (7 sources) Premenstrual tension syndrome; Translations: [Premenstrual tension syndrome] Onset: 02-12-2011 02-12-2011 Chronic Other female genital disorders (1 source) Vaginal odor; Translations: [Other specified noninflammatory disorders of vagina] Episodic Other screening for suspected conditions (not mental disorders or infectious disease) (10 sources) Patient encounter status; Translations: [Encounter for screening mammogram for malignant neoplasm of breast] Onset: 05-08-2022 Episodic Past or Other Problems Problem Classification Problem Date Documented Da te Episodic/Chronic Other circulatory disease (7 sources) Low blood pressure; Translations: [Hypotension, unspecified] Onset: 06-06-2017 12-28-2019 Episodic Results Test Name Value Interpretation Reference Range Facil ity Vital Signs Date Time Vital Sign Value Performing Clinician Faci lity 01-27-2023 07:16-0400 Body height 174 cm Trina Job SET UP OPERATOR.RENEWALS SPECIALIST Work Phone: [facility] 01-27-2023 07:16-0400 Body weight 62.32 kg Trina Job SET UP OPERATOR.RENEWALS SPECIALIST Work Phone: [facility] 01-27-2023 07:16-0400 Diastolic blood pressure 60 mm[Hg] Trnia Job SET UP OPERATOR.RENEWALS SPECIALIST Work Phone: [facility] 01-27-2023 07:16-0400 Systolic blood pressure 90 mm[Hg] Trina [place] SET UP OPERATOR.RENEWALS SPECIALIST Work Phone: [facility] 05-08-2022 10:04-0500 Diastolic blood pressure 66 mm[Hg] Stephany Bravo MD Work Phone: [facility] 05-08-2022 10:04-0500 Heart rate 60 /min Stephany Bravo MD Work Phone: [facility] 05-08-2022 10:04-0500 SaO2% (BldA) [Mass fraction] 99 % Stephany Bravo MD Work Phone: [facility] 05-08-2022 10:04-0500 Systolic blood pressure 113 mm[Hg] Stephany Bravo MD Work Phone: [facility] 05-08-2022 09:24-0500 Respiratory rate 14 /min Stephany Bravo MD Work Phone: [facility] 05-08-2022 07:38-0500 Body temperature 99.3 [degF] Stephany Bravo MD Work Phone: [facility] 02-13-2022 16:07-0400 Body height 175.3 cm Stephany Bravo MD Work Phone: [facility] 02-13-2022 16:07-0400 Body temperature 98.49 [degF] Stephany Bravo MD Work Phone: [facility] 02-13-2022 16:07-0400 Body weight 63.5 kg Stephany Bravo MD Work Phone: [facility] 02-13-2022 16:07-0400 Diastolic blood pressure 64 mm[Hg] Stephany Bravo MD Work Phone: [facility] 02-13-2022 16:07-0400 Heart rate 71 /min Stephany Bravo MD Work Phone: [facility] 02-13-2022 16:07-0400 SaO2% (BldA) [Mass fraction] 98 % Stephany Bravo MD Work Phone: [facility] 02-13-2022 16:07-0400 Systolic blood pressure 100 mm[Hg] Stephany Bravo MD Work Phone: [facility] 01-25-2022 07:05-0400 Body height 172.7 cm Trina [place] SET UP OPERATOR.RENEWALS SPECIALIST Work Phone: [facility] 01-25-2022 07:05-0400 Body weight 62.6 kg Trina [place] SET UP OPERATOR.RENEWALS SPECIALIST Work Phone: [facility] 01-25-2022 07:05-0400 Diastolic blood pressure 58 mm[Hg] Trina [place] SET UP OPERATOR.RENEWALS SPECIALIST Work Phone: [facility] 01-25-2022 07:05-0400 Systolic blood pressure 90 mm[Hg] Trina Job SET UP OPERATOR.RENEWALS SPECIALIST Work Phone: [facility] Encounters Encounter Date Encounter Type Care Provider Facility Start: 03-10-2023 Telephone encounter Trina Metc jae SET UP OPERATOR.RENEWALS SPECIALIST Work Phone: OB/Gynecology Procedures Date Procedure Procedure Detail Performing Clinician Start: 01-15-2023 Screening mammograph y bi 2-view breast inc cad Trina Kaiser SET UP OPERATOR.RENEWALS SPECIALIST Work Phone: Start: 05-08-2022 Colonoscopy flx dx w/collj spec when pfrmd Stephany Bravo MD Work Phone: Start: 05-08-2022 Colonoscopy Mammograph y Coordinator Start: 12-28-2021 Mammography Trina rowe SET UP OPERATOR.RENEWALS SPECIALIST Work Phone: Start: 01-26-2021 Lipid 1996 panel - S johan or Plasma Mammography Coordinator Plan of Treatment Date Care Activity Detail Author Start: 05-08-2032 Colonoscopy Colonoscopy [facility] Start: 05-08-2032 Colorectal Cancer Screening Colorectal Cancer Screening [facility] Start: 01-26-2026 Lipid 1996 panel - Serum or Plasma Lipid Screening [facility] Start: 01-26-2026 LIPID SCREEN LIPID SCREEN [facility] Start: 01-27-2024 DIABETES SCREEN DIABETES SCREEN [facility] Start: 01-27-2024 Diabetes Screening Diabetes Screening [facility] Start: 01-16-2024 Mammography Mammogram Screening [facility] Start: 12-18-2023 HPV TESTING HPV TESTING [facility] Start: 12-18-2023 PAP TESTING PAP TESTING [facility] Start: 12-28-2022 Mammography MAMMOGRAM [facility] Start: 12-13-2022 Influenza vaccination Influenza Vaccine (#1) [facility] Start: 2022 Shingrix Vaccine (1 of 2) Shingrix Vaccine (1 of 2) [facility] Start: 04-14-2022 Depression Assessment Depression Assessment [facility] Start: 12-13-2021 Influenza vaccination INFLUENZA (#1) [facility] Start: 04-14-2021 DEPRESSION ASSESSMENT DEPRESSION ASSESSMENT [facility] Start: 2017 COLOGUARD (FIT-DNA) COLOGUARD (FIT-DNA) [facility] Start: 2017 Colonoscopy COLONOSCOPY [facility] Start: 2017 COLORECTAL CANCER SCREENING COLORECTAL CANCER SCREENING [facility] Start: [address] COLONOGRAPHY [facility] Start: 2017 FECAL OCCULT BLOOD FECAL OCCULT BLOOD [facility] Start: 2017 SIGMOIDOSCOPY SIGMOIDOSCOPY [facility] Start: 10-12-2001 Urine microalbumin profile [facility] Start: 1990 HEPATITIS C SCREENING HEPATITIS C SCREENING [facility] Start: 1990 HIV SCREENING HIV SCREENING [facility] Start: 06-11-1973 COVID-19 VACCINE (#1) COVID-19 VACCINE (#1) [facility] Start: 1972 HEPATITIS B (1 of 3 - 3-dose series) HEPATITIS B (1 of 3 - 3-dose series) [facility] Start: 1972 Hepatitis B Vaccine (1 of 3 - 3-dose series) Hepatitis B Vaccine (1 of 3 - 3-dose series) [facility] BACTERIAL VAGINOSIS AMPLIFICATION BACTERIAL VAGINOSIS AMPLIFICATION Lab Routine Vaginal odor Ordered: 01/25/2022 [facility] Work Phone: Immunizations Immunization Date Immunization Notes Care Provider Michelle harmon 10-13-1991 diphtheria and tetan us toxoids, adsorbed for pediatric use Trina [place] SET UP OPERATOR.RENEWALS SPECIALIST Work Phone: [facility] 01-04-1985 measles, mumps and rubella virus vaccine Trina [place] SET UP OPERATOR.RENEWALS SPECIALIST Work Phone: [facility] 08-12-1977 diphtheria, tetanus toxoids and acellular pertussis vaccine Trina Job SET UP OPERATOR.RENEWALS SPECIALIST Work Phone: [facility] 08-12-1977 trivalent poliovirus vaccine, live, oral Trina Job SET UP OPERATOR.RENEWALS SPECIALIST Work Phone: [facility] 12-16-1974 diphtheria, tetanus toxoids and acellular pertussis vaccine Trina [place] SET UP OPERATOR.RENEWALS SPECIALIST Work Phone: [facility] 12-16-1974 trivalent poliovirus vaccine, live, oral Trina Job SET UP OPERATOR.RENEWALS SPECIALIST Work Phone: [facility] 01-05-1974 measles, mumps and rubella virus vaccine Trina Job SET UP OPERATOR.RENEWALS SPECIALIST Work Phone: [facility] 04-17-1973 diphtheria, tetanus toxoids and acellular pertussis vaccine Trina Job SET UP OPERATOR.RENEWALS SPECIALIST Work Phone: [facility] 04-17-1973 trivalent poliovirus vaccine, live, oral Trina [place] SET UP OPERATOR.RENEWALS SPECIALIST Work Phone: [facility] 03-06-1973 diphtheria, tetanus toxoids and acellular pertussis vaccine Trina [place] SET UP OPERATOR.RENEWALS SPECIALIST Work Phone: [facility] 03-06-1973 trivalent poliovirus vaccine, live, oral Trina [place] SET UP OPERATOR.RENEWALS SPECIALIST Work Phone: [facility] 01-23-1973 diphtheria, tetanus toxoids and acellular pertussis vaccine Trina Job SET UP OPERATOR.RENEWALS SPECIALIST Work Phone: [facility] 01-23-1973 trivalent poliovirus vaccine, live, oral Trina [place] SET UP OPERATOR.RENEWALS SPECIALIST Work Phone: [facility] Payers Date Payer Category Payer Unknown [id number] 2019 Unknown [id number] Social History Date Type Detail Facility Start: 02-12-2011 End: 01-27-2023 Tobacco smoking status NHIS Never smoked tobacco [facility] Start: 02-12-2011 End: 01-27-2023 Tobacco use and exposure Smokeless tobacco non-user [facility] Start: 01-25-2022 End: 01-27-2023 Alcohol intake Current non-drinker of alcohol (finding) [facility] Start: 12-28-2019 History SDOH Social Connections Phone 5 [facility] Start: 12-28-2019 History SDOH Social Connections Get Together 3 [facility] Start: 12-28-2019 History SDOH Social Connections Membership 1 [facility] Start: 12-28-2019 History SDOH Physica l Activity DPW 4 [facility] Start: 12-28-2019 History SDOH Physica l Activity MPS 6 [facility] Start: 12-28-2019 History SDOH Stress 2 [facility] Start: 12-28-2019 Education 18 [facility] Start: 1972 Sex Assigned At Not on file [facility] Start: 12-21-2021 End: 02-13-2022 Exposure to SARS-CoV-2 (event) Not sure [facility] Start: 12-28-2019 End: 04-30-2022 History of Social function [facility] Work Phone: Start: 12-28-2019 End: 04-30-2022 Social connection and isolation panel [facility] Work Phone: Do you belong to any clubs or organizations such as yazidi groups, unions, fraternal or athletic groups, or school groups? Yes [facility] Work Phone: Are you now , , , , never or living with a partner? [facility] Work Phone: How hard is it for y ou to pay for the very basics like food, housing, medical care, and heating Not hard at all [facility] Work Phone: Do you feel stress - tense, restless, nervous, or anxious, or unable to sleep at night because your mind is troubled all the time - these days [OSQ] Only a little [facility] Work Phone: (I/We) worried whebelén er (my/our) food would run out before (I/we) got money to buy more. Never true [facility] [employer] Phone: NEGATED: Highlighted rowStart: DEMARIO History of tobacco use Passive smoker [facility] Work Phone: Clinical Notes 11-24-2008 to 03-10-2023 Telephone Encounter - Trina Kaiser APRN.CNP - 03/10/2023 3:25 PM ESTTelephone Encounter - Katherine Thomas RN - 03/10/2023 2:27 PM ESTTrina Kaiser APRN.CNP - 01/27/2023 7:15 AM EDT Note Date & Type Note Facility 03-10-2023 Miscellaneous Notes Rx sent. Trina Kaiser APRN.CNP Patient would like to try the estrogen cream. Pharmacy verified. Katherine Thmoas RN Vaginal estrogen cream would be the option to help with changes, if this is something she wants to do I can sent a Rx in for her,. Trina Kaiser APRN.CNP Patient notified and understanding. asking if there is anything to help the vaginal/urethral changes or that you recommend she do to be proactive in preventing them. She is taking women's health probiotic. Katherine Thomas RN Her estrogen level does not cause UTIs. The decrease in estrogen during menopause can cause some urethral vaginal changes that could lead to more UTIs. Checking her level would not make any difference in regards to her UTIs. Trina Kaiser APRN.CNP Patient asking if RM could place an order to check her estrogen level. Patient has frequent UTIs. She's had two in the last two months. Typically seen in ER because they get to be so painful. Patient heard that estrogen level could contribute. Are you willing to place the lab order? Lorraine Avila RN documented in this encounter [facility] 01-27-2023 Note HNO ID: [id number] Author: Trina Kaiser APRN.CNP Service: ? Author Type: Nurse Practitioner Type: Progress Notes Filed: 01/27/2023 8:09 AM Note Text: Maxine is a 52 year old who presents for an annual gynecologic exam without complaints. Menses: cycles every 25-30 days and 5 days of flow. 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 Comments: Sexual Activity: Yes; Male Contraception: Vasectomy PAST MEDICAL HISTORY Diagnosis Date Allergic rhinitis due to other allergen Excessive or frequent menstruation Heavy periods Hyperlipemia Peripheral vascular complications PMH - PAST MEDICAL HISTORY OF THROMBOPHILIA PAST SURGICAL HISTORY Procedure Laterality Date COLONOSCOPY 05/08/2022 repeat in 10 years NONE FAMILY HISTORY Problem Relation Age of Onset Thyroid Mother Lipids Father Hypertension Father other (Heart Attack) Father 65 Mild Hypertension Maternal Grandmother Arthritis Maternal Grandmother Heart Maternal Grandfather at 40s other (Hyperlipemia) Maternal Grandfather Mother and Father SOCIAL HISTORY Social History Tobacco Use Smoking status: Never Passive exposure: Never Smokeless tobacco: Never Vaping Use Vaping Use: Never used Substance Use Topics Alcohol use: No Drug use: No REVIEW OF SYSTEMS Abdomen: No abdominal pain, nausea, vomiting, diarrhea, or constipation. No bloating, early satiety, indigestion, or increased flatulence. Bladder: No dysuria, gross hematuria, urinary frequency, urinary urgency, or incontinence. Breast: No breast lumps, nipple d/c, overlying skin changes, redness or skin retraction. Allergies and current medication updated:Yes EXAM: Ht 5' 8.5 (1.74m) Wt 137 lb 6.4 oz (62.3kg) LMP 11/19/2022 BMI 20.59 kg/(m2). GENERAL: pleasant, female in no apparent distress HEENT: Normocephalic, atraumatic, mucus membranes moist, and no lesions NECK: Supple, full range of motion, no adenopathy, and thyroid normal DERMATOLOGY: Normal, without lesions, non-icteric, and non-hirsute BREAST: soft, non-tender, symmetric, no dominant mass, normal nipple-areolar complex, no lymphadenopathy, and no nipple discharge CHEST: Normal inspiratory effort ABDOMEN: soft, non-tender, and no masses PELVIC: external genitalia normal, normal Bartholin's glands, urethra, [place]'s glands, no vulvar lesions, no cervical lesions, good vaginal support, physiologic discharge present, normal appearing perineal body and perianal region BIMANUAL: uterus normal size, shape and consistency, no adnexal masses, and non-tender RECTOVAGINAL: deferred. NEURO: alert and oriented x3,exam grossly non-focal EXTREMITIES: normal ASSESSMENT/PLAN: 1) Health maintenance: Pap/HPV up to date. Mammogram up to date . Nutrition, exercise and routine health maintenance exams reviewed. Calcium/Vitamin D supplementation information provided. 2) Contraception: vasectomy. Contraceptive options reviewed and information provided. 3) STD screening: Declined STD check. 4) Follow up one year or sooner as needed Trina Kaiser APRN.[facility] 01-27-2023 History of Presen t illness Narrative Maxine is a 52 year old who presents for an annual gynecologic exam without complaints. Menses: cycles every 25-30 days and 5 days of flow. 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 Comments: Sexual Activity: Yes; Male Contraception: Vasectomy PAST MEDICAL HISTORY Diagnosis Date Allergic rhinitis due to other allergen Excessive or frequent menstruation Heavy periods Hyperlipemia Peripheral vascular complications PMH - PAST MEDICAL HISTORY OF THROMBOPHILIA PAST SURGICAL HISTORY Procedure Laterality Date COLONOSCOPY 05/08/2022 repeat in 10 years NONE FAMILY HISTORY Problem Relation Age of Onset Thyroid Mother Lipids Father Hypertension Father other (Heart Attack) Father 65 Mild Hypertension Maternal Grandmother Arthritis Maternal Grandmother Heart Maternal Grandfather at 40s other (Hyperlipemia) Maternal Grandfather Mother and Father SOCIAL HISTORY Social History Tobacco Use Smoking status: Never Passive exposure: Never Smokeless tobacco: Never Vaping Use Vaping Use: Never used Substance Use Topics Alcohol use: No Drug use: No REVIEW OF SYSTEMS Abdomen: No abdominal pain, nausea, vomiting, diarrhea, or constipation. No bloating, early satiety, indigestion, or increased flatulence. Bladder: No dysuria, gross hematuria, urinary frequency, urinary urgency, or incontinence. Breast: No breast lumps, nipple d/c, overlying skin changes, redness or skin retraction. Allergies and current medication updated:Yes EXAM: Ht 5' 8.5 (1.74m) Wt 137 lb 6.4 oz (62.3kg) LMP 11/19/2022 BMI 20.59 kg/(m^2). GENERAL: pleasant, female in no apparent distress HEENT: Normocephalic, atraumatic, mucus membranes moist, and no lesions NECK: Supple, full range of motion, no adenopathy, and thyroid normal DERMATOLOGY: Normal, without lesions, non-icteric, and non-hirsute BREAST: soft, non-tender, symmetric, no dominant mass, normal nipple-areolar complex, no lymphadenopathy, and no nipple discharge CHEST: Normal inspiratory effort ABDOMEN: soft, non-tender, and no masses PELVIC: external genitalia normal, normal Bartholin's glands, urethra, [place]'s glands, no vulvar lesions, no cervical lesions, good vaginal support, physiologic discharge present, normal appearing perineal body and perianal region BIMANUAL: uterus normal size, shape and consistency, no adnexal masses, and non-tender RECTOVAGINAL: deferred. NEURO: alert and oriented x3,exam grossly non-focal EXTREMITIES: normal ASSESSMENT/PLAN: 1) Health maintenance: Pap/HPV up to date. Mammogram up to date . Nutrition, exercise and routine health maintenance exams reviewed. Calcium/Vitamin D supplementation information provided. 2) Contraception: vasectomy. Contraceptive options reviewed and information provided. 3) STD screening: Declined STD check. 4) Follow up one year or sooner as needed Trina Kaiser APRN.KRISTIE documented in this encounter [facility] 01-15-2023 Miscellaneous Notes January 16, 2023 PID: [id number] Maxine Zuniga [id number] [id number] Dear Ms. Zuniga, We are pleased to inform you that the results of your recent breast imaging exam on 01/15/2023 are normal. Your mammogram demonstrates that you have dense breast tissue, which could hide abnormalities. Dense breast tissue, in and of itself, is a relatively common condition. Therefore, this information is not provided to cause undue concern; rather, it is to raise your awareness and promote discussion with your health care provider regarding the presence of dense breast tissue in addition to other risk factors. Early detection of cancer is very important. We also understand recommendations regarding breast cancer screening are controversial. Please discuss with your primary care provider which strategy is best for you and whether a mammogram is right for you. Your imaging studies and report will be kept on file at [facility] as part of your permanent medical record and are available for your continuing care. Thank you for allowing us to help in meeting your health care needs. Sincerely, Dr. Lundberg Interpreting Radiologist [facility] (Normal over 40) documented in this encounter [facility] 01-15-2023 Note HNO ID: [id number] Author: Cecilia Her Mammo Tech Service: ? Author Type: Checkering Machine Operator Type: Progress Notes Filed: 01/15/2023 7:51 AM Note Text: Radiology Service Progress Note PATIENT NAME: Maxine Zuniga DATE OF SERVICE: January 15, 2023 TIME: 7:31 AM PATIENT IDENTITY VERIFICATION COMPLETED USING TWO (2) IDENTIFIERS: Name and Date of confirmed by patient verbally. FALL SCREENING: Has the patient had 2 falls in the last year or 1 fall with injury or currently using an Ambulatory Assistive Device (Walker, Cane, Wheelchair, Crutches, etc.)? No PATIENT GENDER DATA: Female. status: : No status: NO. PATIENT RELEVANT IMPLANT DATA REVIEWED: Not Applicable RADIOLOGY DEPARTMENT: Mammography PERIPHERAL IV DATA: Not applicable SIGNED BY: Johanna Finney January 15, 2023 7:31 AM [facility] 01-15-2023 History of Presen t illness Narrative Radiology Service Progress Note PATIENT NAME: Maxine Zuniga DATE OF SERVICE: January 15, 2023 TIME: 7:31 AM PATIENT IDENTITY VERIFICATION COMPLETED USING TWO (2) IDENTIFIERS: Name and Date of confirmed by patient verbally. FALL SCREENING: Has the patient had 2 falls in the last year or 1 fall with injury or currently using an Ambulatory Assistive Device (Walker, Cane, Wheelchair, Crutches, etc.)? No PATIENT GENDER DATA: Female. status: : No status: NO. PATIENT RELEVANT IMPLANT DATA REVIEWED: Not Applicable RADIOLOGY DEPARTMENT: Mammography PERIPHERAL IV DATA: Not applicable SIGNED BY: Johanna Finney January 15, 2023 7:31 AM documented in this encounter [facility] 05-08-2022 Note HNO ID: [id number] Author: Kami Bahena RN Service: ? Author Type: Registered Nurse Type: Nursing Progress Note Filed: 05/08/2022 10:00 AM Note Text: Pt more awake. at bedside. Given snack and drink. Kami Bahena RN [facility] 05-08-2022 Nurse Note Pt more awake. at bedside. Given snack and drink. Kami Bahena RN Pt received in PACU. Pt extremely drowsy, but arouses slightly. Appears comfortable. Abd soft and non distended. Kami Bahena RN documented in this encounter [facility] 05-08-2022 History and physical note UPDATED PROCEDURAL SEDATION HISTORY AND PHYSICAL EXAMINATION SERVICE DATE: 05/08/2022 SERVICE TIME: 7:34 PHYSICAL EXAM MUST BE COMPLETED ON ADMISSION PROCEDURE: colonoscopy, possible bipsies Procedure Indications: screening for colon cancer The History and Physical (completed in the past 30 days) has been reviewed and the patient has been examined. The contents accurately reflect the patient's condition with the following additions or revisions since the H&P was completed. ASA Class: ASA Class:: Normal healthy patient Examination indicates no changes. AIRWAY: Airway Visualization of Uvula: Yes Mouth opening greater than 2 fingerbreadths: Yes Neck Full Range of Motion: Yes LUNGS: Lungs clear to auscultation CARDIAC: Regular rhythm,Regular rate Provisional Diagnosis/Treatment Plan: colonoscopy, possible biopsies SEDATION GOAL: Moderate This H&P can be found in the Electronic Medical Record . SIGNATURE: Stephany Bravo MD PATIENT NAME: Maxine Zuniga DATE: May 08, 2022 TIME: 7:34 AM Source Note - Stephany Bravo MD - 05/08/2022 8:15 AM EST HISTORY AND PHYSICAL Maxine Zuniga 1970 REFERRING PHYSICIAN: Trina Kaiser APRN.RENEWALS SPECIALIST CHIEF COMPLAINT: Consult (colonoscopy) HPI: The patient is a pleasant 51 year old female referred for consideration of colonoscopy for screening for colon cancer. Maxine notes no blood in stools, denies abdominal pain, and denies changes in bowel habits. The patient notes no colon cancer in immediate family. The patient has not had previous colonoscopy. PAST MEDICAL HISTORY Diagnosis Date Allergic rhinitis due to other allergen Excessive or frequent menstruation Heavy periods Hyperlipemia Peripheral vascular complications PMH - PAST MEDICAL HISTORY OF THROMBOPHILIA PAST SURGICAL HISTORY Procedure Laterality Date NONE Current Outpatient Medications Medication Sig Lactobac no.41/Bifidobact no.7 (PROBIOTIC-10 ORAL) Take by mouth. omega-3/dha/epa/dpa/fish oil (OMEGA-3 2100 ORAL) Take by mouth. MULTIVITAMIN ORAL Take by mouth. CALCIUM ANTACID 500 MG CHEWABLE TAB Take one(1) tablet daily. peg 3350-Electrolytes (GOLYTELY) 236-22.74-6.74 -5.86 gram suspension Take 4,000 mL by mouth one time only for 1 dose. Refer to printed prep instructions from your provider. ALLERGIES: Seasonal [Other] PERSONAL HISTORY: Social History Tobacco Use Smoking status: Never Smokeless tobacco: Never Vaping Use Vaping Use: Never used Substance Use Topics Alcohol use: No Drug use: No FAMILY HISTORY Problem Relation Age of Onset Thyroid Mother Lipids Father Hypertension Father other (Heart Attack) Father 65 Mild Hypertension Maternal Grandmother Arthritis Maternal Grandmother Heart Maternal Grandfather at 40s other (Hyperlipemia) Maternal Grandfather Mother and Father The review of systems data was entered by the nurse and reviewed by me Nursing Notes: Nelda HobsonFIORELLA 02/13/2022 4:10 PM Signed REVIEW OF SYSTEMS: General: The patient denies fatigue, denies weight loss, denies weight gain, denies feeling hot, and denies feelings of cold. Eyes: The patient denies glaucoma, denies eye injury/surgery, wears glasses or contacts. Ear/Nose/Throat: The patient notes allergies, denies hayfever, denies ear infections, and denies bloody noses. Cardiovascular: The patient denies chest pain, denies heart disease, denies high blood pressure,denies cardiac stent, denies prior heart attack, denies irregular heart beat, notes high cholesterol, denies poor circulation, denies heart failure, other cardiac issues, denies claudication, denies cold feet, denies peripheral arterial stent. Respiratory: The patient denies tuberculosis, denies pneumonia, denies frequent cough, denies pulmonary embolism, denies shortness of breath, and denies coughing up blood. Gastrointestinal: The patient denies difficulty swallowing, denies acid reflux, denies ulcers, denies vomiting, denies jaundice/hepatitis, denies gallbladder problems, denies black or tarry stools, denies hemorrhoids, denies bleeding from rectum, denies diverticulitis, denies constipation, denies diarrhea, denies loss of stool control, and denies hernias. Kidney/Bladder: The patient denies kidney stones, notes urine infections, and denies bloody urine. Skin: The patient denies a history of skin cancer, denies bleeding/changing moles, and denies a history of skin rash. Neurologic: The patient denies a history of epilepsy/convulsions, denies headaches, denies head/spinal injuries, and denies stroke/TIA. Psychiatric: The patient denies psychiatric medications, denies depression, and denies voices, denies substance abuse. Endocrine: The patient denies thyroid disorders, denies diabetes, and denies hormonal problems. Hematologic: The patient denies a history of bruising, denies bleeding, and denies anemia, denies blood clots. Infections: The patient denies a history of measles and mumps, denies rheumatic fever, and denies sexually transmitted diseases. Musculoskeletal: The patient notes back pain/injury, denies back problems, denies sciatica, denies knee/foot trouble, denies arthritis, or denies gout. When was patient's last Mammogram screening? 2021 Last Colonoscopy: none Nelda Hobson LPN PHYSICAL EXAMINATION: General: The patient is 51 year old female, well nourished, well hydrated in no acute distress. The patient is oriented to time, place, and person. VITALS: Blood pressure 100/64, pulse 71, temperature 36.9 C (98.5 F), height 175.3 cm (5' 9 ), weight 63.5 kg (140 lb), last menstrual period 12/27/2021, SpO2 98 %. Body mass index is 20.67 kg/m . Head: Normal cephalic, atraumatic Eyes: pupils are equally round, sclera are clear/anicteric Neck is supple with no tracheal deviation Respiratory: Normal respiratory excursion and pattern. Abdominal exam: benign Extremities: no clubbing, cyanosis or edema. Neuro: non focal Psych: normal mood IMPRESSION: screening for colon cancer PLAN: \ I have discussed the above with the patient. I have offered colonoscopy , possible biopsies I have explained the procedure to the patient. I have counseled the patient as to the risks of the procedure, including but not limited to: infection, bleeding, injury to any intrabdominal organs such as liver/spleen, perforation of the GI tract, inability to complete the procedure, complications of anesthesia, etc. - the patient understands. The patient wishes to proceed. I have answered all questions to the patient s satisfaction and the patient has no further questions. Diagnoses: (Z12.11) Encounter for screening for malignant neoplasm of colon Stephany Bravo MD HISTORY AND PHYSICAL Maxine Zuniga 1970 REFERRING PHYSICIAN: Trina Kaiser APRN.RENEWALS SPECIALIST CHIEF COMPLAINT: Consult (colonoscopy) HPI: The patient is a pleasant 51 year old female referred for consideration of colonoscopy for screening for colon cancer. Maxine notes no blood in stools, denies abdominal pain, and denies changes in bowel habits. The patient notes no colon cancer in immediate family. The patient has not had previous colonoscopy. PAST MEDICAL HISTORY Diagnosis Date Allergic rhinitis due to other allergen Excessive or frequent menstruation Heavy periods Hyperlipemia Peripheral vascular complications PMH - PAST MEDICAL HISTORY OF THROMBOPHILIA PAST SURGICAL HISTORY Procedure Laterality Date NONE Current Outpatient Medications Medication Sig Lactobac no.41/Bifidobact no.7 (PROBIOTIC-10 ORAL) Take by mouth. omega-3/dha/epa/dpa/fish oil (OMEGA-3 2100 ORAL) Take by mouth. MULTIVITAMIN ORAL Take by mouth. CALCIUM ANTACID 500 MG CHEWABLE TAB Take one(1) tablet daily. peg 3350-Electrolytes (GOLYTELY) 236-22.74-6.74 -5.86 gram suspension Take 4,000 mL by mouth one time only for 1 dose. Refer to printed prep instructions from your provider. ALLERGIES: Seasonal [Other] PERSONAL HISTORY: Social History Tobacco Use Smoking status: Never Smokeless tobacco: Never Vaping Use Vaping Use: Never used Substance Use Topics Alcohol use: No Drug use: No FAMILY HISTORY Problem Relation Age of Onset Thyroid Mother Lipids Father Hypertension Father other (Heart Attack) Father 65 Mild Hypertension Maternal Grandmother Arthritis Maternal Grandmother Heart Maternal Grandfather at 40s other (Hyperlipemia) Maternal Grandfather Mother and Father The review of systems data was entered by the nurse and reviewed by nh Nursing Notes: Nelda Hobson LPN 02/13/2022 4:10 PM Signed REVIEW OF SYSTEMS: General: The patient denies fatigue, denies weight loss, denies weight gain, denies feeling hot, and denies feelings of cold. Eyes: The patient denies glaucoma, denies eye injury/surgery, wears glasses or contacts. Ear/Nose/Throat: The patient notes allergies, denies hayfever, denies ear infections, and denies bloody noses. Cardiovascular: The patient denies chest pain, denies heart disease, denies high blood pressure,denies cardiac stent, denies prior heart attack, denies irregular heart beat, notes high cholesterol, denies poor circulation, denies heart failure, other cardiac issues, denies claudication, denies cold feet, denies peripheral arterial stent. Respiratory: The patient denies tuberculosis, denies pneumonia, denies frequent cough, denies pulmonary embolism, denies shortness of breath, and denies coughing up blood. Gastrointestinal: The patient denies difficulty swallowing, denies acid reflux, denies ulcers, denies vomiting, denies jaundice/hepatitis, denies gallbladder problems, denies black or tarry stools, denies hemorrhoids, denies bleeding from rectum, denies diverticulitis, denies constipation, denies diarrhea, denies loss of stool control, and denies hernias. Kidney/Bladder: The patient denies kidney stones, notes urine infections, and denies bloody urine. Skin: The patient denies a history of skin cancer, denies bleeding/changing moles, and denies a history of skin rash. Neurologic: The patient denies a history of epilepsy/convulsions, denies headaches, denies head/spinal injuries, and denies stroke/TIA. Psychiatric: The patient denies psychiatric medications, denies depression, and denies voices, denies substance abuse. Endocrine: The patient denies thyroid disorders, denies diabetes, and denies hormonal problems. Hematologic: The patient denies a history of bruising, denies bleeding, and denies anemia, denies blood clots. Infections: The patient denies a history of measles and mumps, denies rheumatic fever, and denies sexually transmitted diseases. Musculoskeletal: The patient notes back pain/injury, denies back problems, denies sciatica, denies knee/foot trouble, denies arthritis, or denies gout. When was patient's last Mammogram screening? 2021 Last Colonoscopy: none Nelda Hobson LPN PHYSICAL EXAMINATION: General: The patient is 51 year old female, well nourished, well hydrated in no acute distress. The patient is oriented to time, place, and person. VITALS: Blood pressure 100/64, pulse 71, temperature 36.9 C (98.5 F), height 175.3 cm (5' 9 ), weight 63.5 kg (140 lb), last menstrual period 12/27/2021, SpO2 98 %. Body mass index is 20.67 kg/m . Head: Normal cephalic, atraumatic Eyes: pupils are equally round, sclera are clear/anicteric Neck is supple with no tracheal deviation Respiratory: Normal respiratory excursion and pattern. Abdominal exam: benign Extremities: no clubbing, cyanosis or edema. Neuro: non focal Psych: normal mood IMPRESSION: screening for colon cancer PLAN: \ I have discussed the above with the patient. I have offered colonoscopy , possible biopsies I have explained the procedure to the patient. I have counseled the patient as to the risks of the procedure, including but not limited to: infection, bleeding, injury to any intrabdominal organs such as liver/spleen, perforation of the GI tract, inability to complete the procedure, complications of anesthesia, etc. - the patient understands. The patient wishes to proceed. I have answered all questions to the patient s satisfaction and the patient has no further questions. Diagnoses: (Z12.11) Encounter for screening for malignant neoplasm of colon Stephany Bravo MD documented in this encounter [facility] 02-13-2022 History of Presen t illness Narrative HISTORY AND PHYSICAL Maxine Zuniga 1970 REFERRING PHYSICIAN: Trina Kaiser APRN.RENEWALS SPECIALIST CHIEF COMPLAINT: Consult (colonoscopy) HPI: The patient is a pleasant 51 year old female referred for consideration of colonoscopy for screening for colon cancer. Maxine notes no blood in stools, denies abdominal pain, and denies changes in bowel habits. The patient notes no colon cancer in immediate family. The patient has not had previous colonoscopy. PAST MEDICAL HISTORY Diagnosis Date Allergic rhinitis due to other allergen Excessive or frequent menstruation Heavy periods Hyperlipemia Peripheral vascular complications PMH - PAST MEDICAL HISTORY OF THROMBOPHILIA PAST SURGICAL HISTORY Procedure Laterality Date NONE Current Outpatient Medications Medication Sig Lactobac no.41/Bifidobact no.7 (PROBIOTIC-10 ORAL) Take by mouth. omega-3/dha/epa/dpa/fish oil (OMEGA-3 2100 ORAL) Take by mouth. MULTIVITAMIN ORAL Take by mouth. CALCIUM ANTACID 500 MG CHEWABLE TAB Take one(1) tablet daily. peg 3350-Electrolytes (GOLYTELY) 236-22.74-6.74 -5.86 gram suspension Take 4,000 mL by mouth one time only for 1 dose. Refer to printed prep instructions from your provider. ALLERGIES: Seasonal [Other] PERSONAL HISTORY: Social History Tobacco Use Smoking status: Never Smokeless tobacco: Never Vaping Use Vaping Use: Never used Substance Use Topics Alcohol use: No Drug use: No FAMILY HISTORY Problem Relation Age of Onset Thyroid Mother Lipids Father Hypertension Father other (Heart Attack) Father 65 Mild Hypertension Maternal Grandmother Arthritis Maternal Grandmother Heart Maternal Grandfather at 40s other (Hyperlipemia) Maternal Grandfather Mother and Father The review of systems data was entered by the nurse and reviewed by me Nursing Notes: Nelda Hobson LPN 02/13/2022 4:10 PM Signed REVIEW OF SYSTEMS: General: The patient denies fatigue, denies weight loss, denies weight gain, denies feeling hot, and denies feelings of cold. Eyes: The patient denies glaucoma, denies eye injury/surgery, wears glasses or contacts. Ear/Nose/Throat: The patient notes allergies, denies hayfever, denies ear infections, and denies bloody noses. Cardiovascular: The patient denies chest pain, denies heart disease, denies high blood pressure,denies cardiac stent, denies prior heart attack, denies irregular heart beat, notes high cholesterol, denies poor circulation, denies heart failure, other cardiac issues, denies claudication, denies cold feet, denies peripheral arterial stent. Respiratory: The patient denies tuberculosis, denies pneumonia, denies frequent cough, denies pulmonary embolism, denies shortness of breath, and denies coughing up blood. Gastrointestinal: The patient denies difficulty swallowing, denies acid reflux, denies ulcers, denies vomiting, denies jaundice/hepatitis, denies gallbladder problems, denies black or tarry stools, denies hemorrhoids, denies bleeding from rectum, denies diverticulitis, denies constipation, denies diarrhea, denies loss of stool control, and denies hernias. Kidney/Bladder: The patient denies kidney stones, notes urine infections, and denies bloody urine. Skin: The patient denies a history of skin cancer, denies bleeding/changing moles, and denies a history of skin rash. Neurologic: The patient denies a history of epilepsy/convulsions, denies headaches, denies head/spinal injuries, and denies stroke/TIA. Psychiatric: The patient denies psychiatric medications, denies depression, and denies voices, denies substance abuse. Endocrine: The patient denies thyroid disorders, denies diabetes, and denies hormonal problems. Hematologic: The patient denies a history of bruising, denies bleeding, and denies anemia, denies blood clots. Infections: The patient denies a history of measles and mumps, denies rheumatic fever, and denies sexually transmitted diseases. Musculoskeletal: The patient notes back pain/injury, denies back problems, denies sciatica, denies knee/foot trouble, denies arthritis, or denies gout. When was patient's last Mammogram screening? 2021 Last Colonoscopy: none Nelda Hobson LPN PHYSICAL EXAMINATION: General: The patient is 51 year old female, well nourished, well hydrated in no acute distress. The patient is oriented to time, place, and person. VITALS: Blood pressure 100/64, pulse 71, temperature 36.9 C (98.5 F), height 175.3 cm (5' 9 ), weight 63.5 kg (140 lb), last menstrual period 12/27/2021, SpO2 98 %. Body mass index is 20.67 kg/m . Head: Normal cephalic, atraumatic Eyes: pupils are equally round, sclera are clear/anicteric Neck is supple with no tracheal deviation Respiratory: Normal respiratory excursion and pattern. Abdominal exam: benign Extremities: no clubbing, cyanosis or edema. Neuro: non focal Psych: normal mood Assessment IMPRESSION: screening for colon cancer PLAN: \ I have discussed the above with the patient. I have offered colonoscopy , possible biopsies I have explained the procedure to the patient. I have counseled the patient as to the risks of the procedure, including but not limited to: infection, bleeding, injury to any intrabdominal organs such as liver/spleen, perforation of the GI tract, inability to complete the procedure, complications of anesthesia, etc. - the patient understands. The patient was offered a surgery/procedure at a [facility]. The provider and patient have discussed in detail the risk of exposure to and/or potential harm posed by the COVID-19 virus with having a surgery/procedure at this time versus the risk of delaying the surgery/procedure. It is not possible to know either the risk of delaying the surgery or procedure or chance of getting an infection with perfect accuracy, but a joint decision was made between the patient and the provider to proceed at this time with the scheduled surgery/procedure. The patient wishes to proceed. I have answered all questions to the patient s satisfaction and the patient has no further questions. Diagnoses: (Z12.11) Encounter for screening for malignant neoplasm of colon I have confirmed and edited as necessary, the PFSH and ROS obtained by others. Consultation requested by Trina Kaiser for an opinion regarding patient's screening for colon cancer. My final recommendations will be communicated back to the requesting physician by way of shared Medical record or letter to requesting physician via US mail. Return to Clinic: The patient will be scheduled for colonoscopy at [facility] Medical Decision Making: Risk: Low: Low risk from testing/treatment Medical Decision Making Level: 2 - Straightforward Stephany Bravo MD documented in this encounter [facility] 02-13-2022 Instructions Stephany Bravo MD - 02/13/2022 4:15 PM EDT Images from the original note were not included. Bowel Preparation Instructions for: Golytely, Nulytely, Trilyte or Colyte (polyethylene glycol 3350 and electrolytes) IF YOU DO NOT FOLLOW THESE DIRECTIONS, YOUR COLONOSCOPY WILL BE CANCELLED. Fournier Instructions: Your bowel must be empty so that your doctor can clearly view your colon. Follow all of the instructions in this handout EXACTLY as they are written. Do NOT eat any solid food the ENTIRE day before your colonoscopy. Drink only clear liquids. Buy your bowel preparation at least 5 days before your colonoscopy. TRANSPORTATION on the Day of Your Exam A responsible person MUST be present with you at Check [facility] prior to your colonoscopy and REMAIN in the endoscopy area until you are discharged. You are NOT ALLOWED to drive, take a taxi or bus, or leave the Endoscopy Center ALONE. If you do not have a responsible winch driver (family member or friend) with you to take you home, your exam cannot be done with sedation and will be cancelled. Please bring a list of all of your current medications, including any Over-the Counter medications with you. Medications If you take insulin, diabetic medications or blood thinners such as Coumadin (warfarin), Plavix (clopidogrel), Ticlid (ticlopidine hydrochloride), Agrylin (anagrelide), Xarelto (Rivaroxaban), Pradaxa (Dabigatran), Eliquis (Apixaban), and Effient (Prasugrel). You MUST call the doctors who orders those medicines for instructions on altering the dosage before your colonoscopy. All other medications should be taken the day of the exam with a sip of water including ASPIRIN. Five (5) Days Before Your Colonoscopy Do NOT take medicines that stop diarrhea - such as Imodium, Kaopectate, or Pepto Bismol. Do NOT take fiber supplements - such as Metamucil, Citrucel, or Perdiem. Do NOT take products that contain iron - such as multi-vitamins (the label lists what is in the products). Do NOT take Vitamin E. Buy the prescription bowel preparation solution at your local pharmacy or drugstore pharmacy. 03/2019 Bowel Preparation Instructions for: Golytely, Nulytely, Trilyte or Colyte (polyethylene glycol 3350 and electrolytes) Three (3) Days Before Your Colonoscopy Do NOT eat high-fiber foods - such as popcorn, beans, seeds (flax, sunflower, quinoa), multigrain bread, nuts, salad/vegetables, or fresh and dried fruit. One (1) Day Before Your Colonoscopy Only drink clear liquids the ENTIRE DAY before your colonoscopy. Do NOT eat any solid foods. Drink at least 8 ounces of clear liquids every hour after waking up. The clear liquids you can drink include: Clear Liquid (NO RED LIQUIDS) DO NOT DRINK Gatorade, Pedialyte or Powerade Clear broth or bouillon Coffee or tea (no milk or non-dairy creamer) Carbonated and non-carbonated soft drinks Sheldon-Aid or other fruit flavored drinks Strained fruit juices (no pulp) Jell-O, popsicles, hard candy Water Alcohol Milk or non-dairy creamers Noodles or vegetables in soup Juice with pulp Liquid you cannot see through Do not use tobacco/vaping products The bowel preparation solution will be consumed in two parts. Mix the solution the evening before your colonoscopy and refrigerate before drinking. You may add the flavor pack that came with the bowel preparation. Do NOT add ice, sugar or any other flavorings to the solution. Part 1 At 6:00 PM - Evening before your colonoscopy Drink an 8-oz glass of bowel preparation every 10 minutes for a total of 8 glasses. You may continue to drink clear liquids until midnight. Part 2 On the day of your colonoscopy you may drink clear liquids up to (three) 3 hours before your procedure. 4 1/2 hours before your colonoscopy Drink an 8-oz glass of bowel preparation every 10 minutes for a total of 8 glasses. Fifteen (15) minutes later, drink an 8-oz glass of clear liquids every 15 minutes for a total of 2 glasses. You may continue to drink clear liquids up to (three) 3 hours before your exam. 2 03/2019 documented in this encounter [facility] 02-13-2022 Nurse Note REVIEW OF SYSTEMS: General: The patient denies fatigue, denies weight loss, denies weight gain, denies feeling hot, and denies feelings of cold. Eyes: The patient denies glaucoma, denies eye injury/surgery, wears glasses or contacts. Ear/Nose/Throat: The patient notes allergies, denies hayfever, denies ear infections, and denies bloody noses. Cardiovascular: The patient denies chest pain, denies heart disease, denies high blood pressure,denies cardiac stent, denies prior heart attack, denies irregular heart beat, notes high cholesterol, denies poor circulation, denies heart failure, other cardiac issues, denies claudication, denies cold feet, denies peripheral arterial stent. Respiratory: The patient denies tuberculosis, denies pneumonia, denies frequent cough, denies pulmonary embolism, denies shortness of breath, and denies coughing up blood. Gastrointestinal: The patient denies difficulty swallowing, denies acid reflux, denies ulcers, denies vomiting, denies jaundice/hepatitis, denies gallbladder problems, denies black or tarry stools, denies hemorrhoids, denies bleeding from rectum, denies diverticulitis, denies constipation, denies diarrhea, denies loss of stool control, and denies hernias. Kidney/Bladder: The patient denies kidney stones, notes urine infections, and denies bloody urine. Skin: The patient denies a history of skin cancer, denies bleeding/changing moles, and denies a history of skin rash. Neurologic: The patient denies a history of epilepsy/convulsions, denies headaches, denies head/spinal injuries, and denies stroke/TIA. Psychiatric: The patient denies psychiatric medications, denies depression, and denies voices, denies substance abuse. Endocrine: The patient denies thyroid disorders, denies diabetes, and denies hormonal problems. Hematologic: The patient denies a history of bruising, denies bleeding, and denies anemia, denies blood clots. Infections: The patient denies a history of measles and mumps, denies rheumatic fever, and denies sexually transmitted diseases. Musculoskeletal: The patient notes back pain/injury, denies back problems, denies sciatica, denies knee/foot trouble, denies arthritis, or denies gout. When was patient's last Mammogram screening? 2021 Last Colonoscopy: none Nelda Hobson LPN documented in this encounter [facility] 01-25-2022 History of Presen t illness Narrative Acid Concentrator offered: Patient declines. Maxine is a 51 year old who presents for an annual gynecologic exam with complaints, vaginal odor . Menses: cycles every 25-30 days and 4-7 days of flow. 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 Comments: Sexual Activity: Yes; Male Contraception: Vasectomy PAST MEDICAL HISTORY Diagnosis Date Allergic rhinitis due to other allergen Excessive or frequent menstruation Heavy periods Hyperlipemia Peripheral vascular complications PMH - PAST MEDICAL HISTORY OF THROMBOPHILIA PAST SURGICAL HISTORY Procedure Laterality Date NONE FAMILY HISTORY Problem Relation Age of Onset Thyroid Mother Lipids Father Hypertension Father other (Heart Attack) Father 65 Mild Hypertension Maternal Grandmother Arthritis Maternal Grandmother Heart Maternal Grandfather at 40s other (Hyperlipemia) Maternal Grandfather Mother and Father SOCIAL HISTORY Social History Tobacco Use Smoking status: Never Smokeless tobacco: Never Vaping Use Vaping Use: Never used Substance Use Topics Alcohol use: No Drug use: No REVIEW OF SYSTEMS Abdomen: No abdominal pain, nausea, vomiting, diarrhea, or constipation. No bloating, early satiety, indigestion, or increased flatulence. Bladder: No dysuria, gross hematuria, urinary frequency, urinary urgency, + stress incontinence. Breast: No breast lumps, nipple d/c, overlying skin changes, redness or skin retraction. Allergies and current medication updated:Yes EXAM: LMP 12/14/2020 GENERAL: pleasant, female in no apparent distress HEENT: Normocephalic, atraumatic, and no lesions NECK: Supple, full range of motion, no adenopathy, and thyroid normal DERMATOLOGY: Normal, without lesions, non-icteric, and non-hirsute BREAST: soft, non-tender, symmetric, no dominant mass, normal nipple-areolar complex, no lymphadenopathy, and no nipple discharge CHEST: Normal inspiratory effort ABDOMEN: soft, non-tender, and no masses PELVIC: external genitalia normal, normal Bartholin's glands, urethra, [place]'s glands, no vulvar lesions, no cervical lesions, good vaginal support, physiologic discharge present, normal appearing perineal body and perianal region BIMANUAL: uterus normal size, shape and consistency, no adnexal masses, and non-tender RECTOVAGINAL: deferred. NEURO: alert and oriented x3,exam grossly non-focal EXTREMITIES: normal ASSESSMENT/PLAN: 1) Health maintenance: Pap/HPV up to date. Mammogram up to date . Nutrition, exercise and routine health maintenance exams reviewed. Calcium/Vitamin D supplementation information provided. 2) Contraception: vasectomy. Contraceptive options reviewed and information provided. 3) STD screening: Declined STD check. 4) Follow up one year or sooner as needed 5) culture done for vaginal odor Trina Kaiser APRN.KRISTIE documented in this encounter [facility] documented as of this encounter (statuses as of 01/25/2022) [facility] History of Past illness Narrative* Problem Noted Date Resolved Date Other and unspecified ovarian cyst 11/24/2008 02/12/2011 Excessive or frequent menstruation 03/09/2008 08/22/2015 Placenta previa without hemorrhage, antepartum 0 09/19/2006 10/14/2006 SUPRF HIGH RISK NEC [V23.89] 7 12/11/2006 Supervision of other normal 04/25/2006 03/09/2008 documented as of this encounter (statuses as of 02/16/2022) [facility] History of Past illness Narrative* Problem Noted Date Diagnosed Date Resolved Date Other and unspecified ovarian cyst 11/24/2008 02/12/2011 Excessive or frequent menstruation 03/09/2008 08/22/2015 Placenta previa without hemo rrhage, antepartum 09/19/2006 10/14/2006 SUPRF HIGH RISK NEC [V23.89] 05/15/2006 12/11/2006 Supervision of other normal 04/25/2006 03/09/2008 documented as of this encounter (statuses as of 01/18/2023) [facility] History of Past illness Narrative* Problem Noted Date Diagnosed Date Resolved Date Other and unspecified ovarian cyst 11/24/2008 02/12/2011 Excessive or frequent menstruation 03/09/2008 08/22/2015 Placenta previa without hemo rrhage, antepartum 09/19/2006 10/14/2006 SUPRF HIGH RISK NEC [V23.89] 05/15/2006 12/11/2006 Supervision of other normal 04/25/2006 03/09/2008 documented as of this encounter (statuses as of 01/27/2023) [facility] History of Past illness Narrative* Problem Noted Date Diagnosed Date Resolved Date Other and unspecified ovarian cyst 11/24/2008 02/12/2011 Excessive or frequent menstruation 03/09/2008 08/22/2015 Placenta previa without hemo rrhage, antepartum 09/19/2006 10/14/2006 SUPRF HIGH RISK NEC [V23.89] 05/15/2006 12/11/2006 Supervision of other normal 04/25/2006 03/09/2008 documented as of this encounter (statuses as of 02/16/2023) [facility] History of Past illness Narrative* Problem Noted Date Diagnosed Date Resolved Date Other and unspecified ovarian cyst 11/24/2008 02/12/2011 Excessive or frequent menstruation 03/09/2008 08/22/2015 Placenta previa without hemo rrhage, antepartum 09/19/2006 10/14/2006 SUPRF HIGH RISK NEC [V23.89] 05/15/2006 12/11/2006 Supervision of other normal 04/25/2006 03/09/2008 documented as of this encounter (statuses as of 02/16/2023) [facility] History of Past illness Narrative* Problem Noted Date Diagnosed Date Resolved Date Other and unspecified ovarian cyst 11/24/2008 02/12/2011 Excessive or frequent menstruation 03/09/2008 08/22/2015 Placenta previa without hemo rrhage, antepartum 09/19/2006 10/14/2006 SUPRF HIGH RISK NEC [V23.89] 05/15/2006 12/11/2006 Supervision of other normal 04/25/2006 03/09/2008 documented as of this encounter (statuses as of 03/11/2023) [facility] Diagnosis Encounter for gynecological examination (general) (routine) without abnormal findings- Primary Encounter for screening mammogram for breast cancer Vaginal odor Unspecified symptom associated with female genital organs Encounter for screening for malignant neoplasm of colon Special screening for malignant neoplasms, colon [facility] Diagnosis Encounter for screening for malignant neoplasm of colon Special screening for malignant neoplasms, colon [facility] Diagnosis Encounter for gynecological examination (general) (routine) without abnormal findings- Primary Encounter for screening mammogram for breast cancer Dense breast tissue [facility] Diagnosis Screening for colon cancer- Primary Special screening for malignant neoplasms, colon Encounter for screening for malignant neoplasm of colon Special screening for malignant neoplasms, colon [facility] Diagnosis Encounter for screening mammogram for breast cancer documented in this encounter [facility] for referral (narrative)* Outpatient Procedure (Routine) - Pending Review Specialty Diagnoses / Procedures Referred By Contac t Referred To Contact [facility] Diagnoses Encounter for screening for malignant neoplasm of colon Procedures COLONOSCOPY SCREENING COLONOSCOPY FLX DX W/COLLJ SPEC WHEN Stephany Sweeney MD [address] [place] [address] [facility] [address] [place] [address] Referral ID Status Reason Start Date Expiration Date Visits Requested Visits Authorized [id number] Pending Review Auto-Generat ed Referral 02/13/2022 02/13/2023 1 1 [facility] for referral (narrative)* Diagnostic Procedure Only (Routine) - Pending Review Specialty Diagnoses / Procedures Referred By Contac t Referred To Contact [facility] Diagnoses Encounter for screening mammogram for breast cancer Dense breast tissue Procedures PAULETTE SCREENING W EVERETTE SCREENING DIGITAL BREAST TOMOSYNTHESIS BI SCREENING MAMMOGRAPHY BI 2-VIEW BREAST INC Trina Tyson APRN.CNP [address] [place] [address] [facility] [address] [place] [address] Referral ID Status Reason Start Date Expiration Date Visits Requested Visits Authorized [id number] Pending Review Auto-Generat ed Referral 3 02/26/2024 1 1 [facility] for referral (narrative)* Outpatient Procedure (Routine) - Closed Specialty Diagnoses / Procedures Referred By Contac t Referred To Contact [facility] Diagnoses Encounter for screening for malignant neoplasm of colon Procedures COLONOSCOPY SCREENING COLONOSCOPY FLX DX W/COLLJ SPEC WHEN Stephany Sweeney MD [address] [place] [address] [facility] [address] [place] [address] Referral ID Status Reason Start Date Expiration Date V isits Requested Visits Authorized [id number] Closed Auto-Generate d Referral 02/13/2022 02/13/2023 1 1 [facility] for referral (narrative)* Diagnostic Procedure Only (Routine) - Closed Specialty Diagnoses / Procedures Referred By Magdalena t Referred To Contact [facility] Diagnoses Encounter for screening mammogram for breast cancer Procedures PAULETTE SCREENING SCREENING MAMMOGRAPHY BI 2-VIEW BREAST INC CAD Trina Kaiser APRN.RENEWALS SPECIALIST [address] [place] [address] [facility] [address] [place] [address] Referral ID Status Reason Start Date Expiration Date V isits Requested Visits Authorized [id number] Closed Auto-Generate d Referral 01/25/2022 02/24/2023 1 1 [facility] for visit Narrative* Outpatient Procedure (Routine) - Closed Specialty Diagnoses / Procedures Referred By Contac t Referred To Contact [facility] Diagnoses Encounter for screening for malignant neoplasm of colon Procedures COLONOSCOPY SCREENING COLONOSCOPY FLX DX W/COLLJ SPEC WHEN Stephany Sweeney MD [address] [place] [address] [facility] [address] [place] [address] Referral ID Status Reason Start Date Expiration Date V isits Requested Visits Authorized [id number] Closed Auto-Generate d Referral 02/13/2022 02/13/2023 1 1 [facility] for visit Narrative* Diagnostic Procedure Only (Routine) - Closed Specialty Diagnoses / Procedures Referred By Magdalena t Referred To Contact [facility] Diagnoses Encounter for screening mammogram for breast cancer Procedures PAULETTE SCREENING SCREENING MAMMOGRAPHY BI 2-VIEW BREAST INC CAD Trina Kaiser APRN.RENEWALS SPECIALIST [address] [place] [address] [facility] [address] [place] [address] Referral ID Status Reason Start Date Expiration Date V isits Requested Visits Authorized [id number] Closed Auto-Generate d Referral 01/25/2022 02/24/2023 1 1 [facility] Reason for Referral Specialty Diagnoses / Procedures Referred By Contac t Referred To Contact [facility] Diagnoses Encounter for screening for malignant neoplasm of colon Procedures CONSULT TO GENERAL SURGERY OFFICE/OUTPATIENT [facility] HIGH MDM 60-74 MINUTES Trina Kaiser APRN.RENEWALS SPECIALIST [address] [place] [address] Referral ID Status Reason Start Date Expiration Date Visits Requested Visits Authorized [id number] Authorized PCP Requested Referral 2 01/25/2023 1 1 Specialty Diagnoses / Procedures Referred By Magdalena levy Referred To Contact [facility] Diagnoses Encounter for screening mammogram for breast cancer Procedures PAULETTE SCREENING SCREENING MAMMOGRAPHY BI 2-VIEW BREAST INC CAD Trina Kaiser APRN.RENEWALS SPECIALIST [address] [place] [address] [facility] [address] [place] [address] Referral ID Status Reason Start Date Expiration Date Visits Requested Visits Authorized [id number] Pending Review Auto-Generat ed Referral 2 02/24/2023 1 1 Medications Administered Section Inactive Administered Medications - up to 3 most recent administrations Medication Order MAR Action Action Date Dose Rate Site diphenhydrAMINE 12.5-50 mg injection (BENADRYL) 12.5-50 mg, INTRAVENOUS, DIRECTED, Starting on Fri05/08/22 at 0900, Until Fri05/08/22 at 1259, DOSING DIRECTED BY PHYSICIAN FOR PROCEDURAL SEDATION ONLY, Intraprocedure Given 05/08/2022 8:45 AM EST 50 mg fentaNYL 50 mcg/mL 25-100 mcg injection (SUBLIMAZE) 25-100 mcg, INTRAVENOUS, DIRECTED, Starting on Fri05/08/22 at 0900, Until Fri05/08/22 at 1259, DOSING DIRECTED BY PHYSICIAN FOR PROCEDURAL SEDATION ONLY, Intraprocedure Given 05/08/2022 8:54 AM EST 50 mcg Summary Purpose Family History No Family History Records Found Advance Directives No Advanced Directives Records Found Additional Source Comments Source Comments (unrecognize d section and content) In the event this informatio n is protected by the Federal Confidentiality of Alcohol and Drug Abuse Patient Records regulations: The Federal rules restrict any use of the information to criminally investigate or prosecute any alcohol or drug abuse patient.[facility] the event this information is protected by the Federal Confidentiality of Alcohol and Drug Abuse Patient Records regulations: The Federal rules restrict any use of the information to criminally investigate or prosecute any alcohol or drug abuse patient.[facility] the event this information is protected by the Federal Confidentiality of Alcohol and Drug Abuse Patient Records regulations: The Federal rules restrict any use of the information to criminally investigate or prosecute any alcohol or drug abuse patient.[facility] the event this information is protected by the Federal Confidentiality of Alcohol and Drug Abuse Patient Records regulations: The Federal rules restrict any use of the information to criminally investigate or prosecute any alcohol or drug abuse patient.[facility] the event this information is protected by the Federal Confidentiality of Alcohol and Drug Abuse Patient Records regulations: The Federal rules restrict any use of the information to criminally investigate or prosecute any alcohol or drug abuse patient.[facility] the event this information is protected by the Federal Confidentiality of Alcohol and Drug Abuse Patient Records regulations: The Federal rules restrict any use of the information to criminally investigate or prosecute any alcohol or drug abuse patient.[facility] the event this information is protected by the Federal Confidentiality of Alcohol and Drug Abuse Patient Records regulations: The Federal rules restrict any use of the information to criminally investigate or prosecute any alcohol or drug abuse patient.[facility] Reason for Visit (unrecogniz ed section and content) Reason Comments Consult colonoscopy Specialty Diagnoses / Procedures Referred By Magdalena levy Referred To Contact General Surgery Diagnoses Encounter for screening for malignant neoplasm of colon Procedures CONSULT TO GENERAL SURGERY OFFICE/OUTPATIENT [facility] 60-74 MINUTES Trina Kaiser APRN.RENEWALS SPECIALIST [address] [place] [address] Referral ID Status Reason Start Date Expiration Date V isits Requested Visits Authorized [id number] Closed PCP Requested Referral 01/25/2022 01/25/2023 1 1 Reason Comments Yearly Exam Reason Comments Patient Question Care Teams (unrecognized sec tion and content) 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 Relationship Specialty Start Date End Date Ann Marie Berry MD [address] [place], [place] [id number] PCP - General Family Medicine 04/26/18 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 Relationship Specialty Start Date End Date Ann Marie Berry MD [address] [place] [address] PCP - General Family Medicine 04/26/18 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 Relationship Specialty Start Date End Date Ann Marie Berry MD [address] [place] [address] PCP - General Family Medicine 04/26/18 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 Relationship Specialty Start Date End Date Ann Marie Brery MD [address] [place], [place] [id number] PCP - General Family Medicine 04/26/18 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 This clinical summary was aggregated from multiple sources. Caution should be exercised in using it in the provision of clinical care. This summary normalizes information from multiple sources, and as a consequence, information in this document may materially change the coding, format and clinical context of patient data. In addition, data may be omitted in some cases. CLINICAL DECISIONS SHOULD BE BASED ON THE PRIMARY CLINICAL RECORDS. [facility]. provides no warranty or guarantee of the accuracy or completeness of information in this document.
== END | disposition home or self-care (01) ==
LOC: MTLAB 15:57
PROVIDERS: PCP Nurse Practitioner Family; Referring Provider Urology; Visit Provider Urology
DX: N39.0 Urinary tract infection, site not specified (principal); N32.89 Other specified disorders of bladder; R35.1 Nocturia; N76.89 Other specified inflammation of vagina and vulva; N35.82 Other urethral stricture, female
CPT/HCPCS: 87086; 87088

== ENCOUNTER 2023-05-22 07:46 | Day surgery (SDC) | payer OTHER, SELFPAY ==
--- OUTSIDE RECORDS SUMMARY | 2023-05-22 07:50 | XMS RPT_ITS | CCD ---
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 Name Role Phone Ann Marie Berry MD Primary Care Provider TRINA KAISER Attending Unavailable TRINA KAISER Referring Unavailable ANN MARIE BERRY Primary Care Unavailable TRINA KAISER Referring Unavailable ANN MARIE BERRY Primary Care Unavailable Stephany Bravo Attending Unavailable Stephany Bravo Referring Unavailable ANN MARIE BERRY Primary Care Unavailable Allergies Allergy Classification Reported Allergen(s) Allergy Type Date of Onset Reaction(s) Facility (7 sources) [facility] [Other] Propensity to adverse reactions [address] [place] [address] Work Phone: (1 source) OTHER; Translations: [OTHER] Propensity to adverse reactions (disorder) [address] [place] [address] Repository Medications Completed/Discontinued Medications Medication Drug Class(es) [...] 07:16-0400 Body height 174 cm Trina Job TRENCH TRIMMER FINE.HANDMADE TILE ARTIST Work Phone: [facility] 01-27-2023 07:16-0400 Body weight 62.32 kg Trina Job TRENCH TRIMMER FINE.HANDMADE TILE ARTIST Work Phone: [facility] 01-27-2023 07:16-0400 Diastolic blood pressure 60 mm[Hg] Trina Job TRENCH TRIMMER FINE.HANDMADE TILE ARTIST Work Phone: [facility] 01-27-2023 07:16-0400 Systolic blood pressure 90 mm[Hg] Trina Plymouth TRENCH TRIMMER FINE.HANDMADE TILE ARTIST Work Phone: [facility] 05-08-2022 10:04-0500 Diastolic blood pressure 66 mm[Hg] Stephany Bravo MD Work Phone: [facility] 05-08-2022 10:04-0500 Heart rate 60 /min Stephany Bravo MD Work Phone: [facility] 05-08-2022 10:04-0500 SaO2% (BldA) [Mass fraction] 99 % Stephany Bravo MD Work Phone: [facility] 05-08-2022 10:04-0500 Systolic blood pressure 113 mm[Hg] Stephany Bravo MD Work Phone: [facility] 05-08-2022 09:24-0500 Respiratory rate 14 /min Stephany Bravo MD Work Phone: [facility] 05-08-2022 07:38-0500 Body temperature 99.3 [degF] Stephany Bravo MD Work Phone: [facility] 02-13-2022 16:07-0400 Body height 175.3 cm Stephany Bravo MD Work Phone: [facility] 02-13-2022 16:07-0400 Body temperature 98.49 [degF] Stephany Bravo MD Work Phone: [facility] 02-13-2022 16:07-0400 Body weight 63.5 kg Stephany Bravo MD Work Phone: [facility] 02-13-2022 16:07-0400 Diastolic blood pressure 64 mm[Hg] Stephany Bravo MD Work Phone: [facility] 02-13-2022 16:07-0400 Heart rate 71 /min Stephany Bravo MD Work Phone: [facility] 02-13-2022 16:07-0400 SaO2% (BldA) [Mass fraction] 98 % Stephany Bravo MD Work Phone: [facility] 02-13-2022 16:07-0400 Systolic blood pressure 100 mm[Hg] Stephany Bravo MD Work Phone: [facility] 01-25-2022 07:05-0400 Body height 172.7 cm Trina Plymouth TRENCH TRIMMER FINE.HANDMADE TILE ARTIST Work Phone: [facility] 01-25-2022 07:05-0400 Body weight 62.6 kg Trina Plymouth TRENCH TRIMMER FINE.HANDMADE TILE ARTIST Work Phone: [facility] 01-25-2022 07:05-0400 Diastolic blood pressure 58 mm[Hg] Trina Plymouth TRENCH TRIMMER FINE.HANDMADE TILE ARTIST Work Phone: [facility] 01-25-2022 07:05-0400 Systolic blood pressure 90 mm[Hg] Trina Job TRENCH TRIMMER FINE.HANDMADE TILE ARTIST Work Phone: [facility] Encounters Encounter Date Encounter Type Care Provider Facility Start: 03-10-2023 Telephone encounter Trina Metc jae TRENCH TRIMMER FINE.HANDMADE TILE ARTIST Work Phone: OB/Gynecology Procedures Date Procedure Procedure Detail Performing Clinician Start: 01-15-2023 Screening mammograph y bi 2-view breast inc cad Trina Kaiser TRENCH TRIMMER FINE.HANDMADE TILE ARTIST Work Phone: Start: 05-08-2022 Colonoscopy flx dx w/collj spec when pfrmd Stephany Bravo MD Work Phone: Start: 05-08-2022 Colonoscopy Mammograph y Coordinator Start: 12-28-2021 Mammography Trina rwoe TRENCH TRIMMER FINE.HANDMADE TILE ARTIST Work Phone: Start: 01-26-2021 Lipid 1996 panel - S johan or Plasma Mammography Coordinator Plan of Treatment Date Care Activity Detail Author Start: 05-08-2032 Colonoscopy Colonoscopy [facility] Start: 05-08-2032 Colorectal Cancer Screening Colorectal Cancer Screening [facility] Start: 01-26-2026 Lipid 1996 panel - Serum or Plasma Lipid Screening [facility] Start: 01-26-2026 LIPID SCREEN LIPID SCREEN [facility] Start: 01-27-2024 DIABETES SCREEN DIABETES SCREEN [facility] Start: 01-27-2024 Diabetes Screening Diabetes Screening [facility] Start: 01-16-2024 Mammography Mammogram Screening [facility] Start: 12-18-2023 HPV TESTING HPV TESTING [facility] Start: 12-18-2023 PAP TESTING PAP TESTING [facility] Start: 12-28-2022 Mammography MAMMOGRAM [facility] Start: 12-13-2022 Influenza vaccination Influenza Vaccine (#1) [facility] Start: 2022 Shingrix Vaccine (1 of 2) Shingrix Vaccine (1 of 2) [facility] Start: 04-14-2022 Depression Assessment Depression Assessment [facility] Start: 12-13-2021 Influenza vaccination INFLUENZA (#1) [facility] Start: 04-14-2021 DEPRESSION ASSESSMENT DEPRESSION ASSESSMENT [facility] Start: 2017 COLOGUARD (FIT-DNA) COLOGUARD (FIT-DNA) [facility] Start: 2017 Colonoscopy COLONOSCOPY [facility] Start: 2017 COLORECTAL CANCER SCREENING COLORECTAL CANCER SCREENING [facility] Start: [address] COLONOGRAPHY [facility] Start: 2017 FECAL OCCULT BLOOD FECAL OCCULT BLOOD [facility] Start: 2017 SIGMOIDOSCOPY SIGMOIDOSCOPY [facility] Start: 10-12-2001 Urine microalbumin profile [facility] Start: 1990 HEPATITIS C SCREENING HEPATITIS C SCREENING [facility] Start: 1990 HIV SCREENING HIV SCREENING [facility] Start: 06-11-1973 COVID-19 VACCINE (#1) COVID-19 VACCINE (#1) [facility] Start: 1972 HEPATITIS B (1 of 3 - 3-dose series) HEPATITIS B (1 of 3 - 3-dose series) [facility] Start: 1972 Hepatitis B Vaccine (1 of 3 - 3-dose series) Hepatitis B Vaccine (1 of 3 - 3-dose series) [facility] BACTERIAL VAGINOSIS AMPLIFICATION BACTERIAL VAGINOSIS AMPLIFICATION Lab Routine Vaginal odor Ordered: 01/25/2022 [facility] Work Phone: Immunizations Immunization Date Immunization Notes Care Provider Michelle harmon 10-13-1991 diphtheria and tetan us toxoids, adsorbed for pediatric use Trina Plymouth TRENCH TRIMMER FINE.HANDMADE TILE ARTIST Work Phone: [facility] 01-04-1985 measles, mumps and rubella virus vaccine Trina Plymouth TRENCH TRIMMER FINE.HANDMADE TILE ARTIST Work Phone: [facility] 08-12-1977 diphtheria, tetanus toxoids and acellular pertussis vaccine Trina Job TRENCH TRIMMER FINE.HANDMADE TILE ARTIST Work Phone: [facility] 08-12-1977 trivalent poliovirus vaccine, live, oral Trina Job TRENCH TRIMMER FINE.HANDMADE TILE ARTIST Work Phone: [facility] 12-16-1974 diphtheria, tetanus toxoids and acellular pertussis vaccine Trina Plymouth TRENCH TRIMMER FINE.HANDMADE TILE ARTIST Work Phone: [facility] 12-16-1974 trivalent poliovirus vaccine, live, oral Trina Job TRENCH TRIMMER FINE.HANDMADE TILE ARTIST Work Phone: [facility] 01-05-1974 measles, mumps and rubella virus vaccine Trina Job TRENCH TRIMMER FINE.HANDMADE TILE ARTIST Work Phone: [facility] 04-17-1973 diphtheria, tetanus toxoids and acellular pertussis vaccine Trina Job TRENCH TRIMMER FINE.HANDMADE TILE ARTIST Work Phone: [facility] 04-17-1973 trivalent poliovirus vaccine, live, oral Trina Plymouth TRENCH TRIMMER FINE.HANDMADE TILE ARTIST Work Phone: [facility] 03-06-1973 diphtheria, tetanus toxoids and acellular pertussis vaccine Trina Plymouth TRENCH TRIMMER FINE.HANDMADE TILE ARTIST Work Phone: [facility] 03-06-1973 trivalent poliovirus vaccine, live, oral Trina Plymouth TRENCH TRIMMER FINE.HANDMADE TILE ARTIST Work Phone: [facility] 01-23-1973 diphtheria, tetanus toxoids and acellular pertussis vaccine Trina Job TRENCH TRIMMER FINE.HANDMADE TILE ARTIST Work Phone: [facility] 01-23-1973 trivalent poliovirus vaccine, live, oral Trina Plymouth TRENCH TRIMMER FINE.HANDMADE TILE ARTIST Work Phone: [facility] Payers Date Payer Category Payer Unknown [id number] 2019 Unknown [id number] Social History Date Type Detail Facility Start: 02-12-2011 End: 01-27-2023 Tobacco smoking status NHIS Never smoked tobacco [facility] Start: 02-12-2011 End: 01-27-2023 Tobacco use and exposure Smokeless tobacco non-user [facility] Start: 01-25-2022 End: 01-27-2023 Alcohol intake Current non-drinker of alcohol (finding) [facility] Start: 12-28-2019 History SDOH Social Connections Phone 5 [facility] Start: 12-28-2019 History SDOH Social Connections Get Together 3 [facility] Start: 12-28-2019 History SDOH Social Connections Membership 1 [facility] Start: 12-28-2019 History SDOH Physica l Activity DPW 4 [facility] Start: 12-28-2019 History SDOH Physica l Activity MPS 6 [facility] Start: 12-28-2019 History SDOH Stress 2 [facility] Start: 12-28-2019 Education 18 [facility] Start: 1970 Sex Assigned At Not on file C [facility] Start: 12-21-2021 End: 02-13-2022 Exposure to SARS-CoV-2 (event) Not sure [facility] Start: 12-28-2019 End: 04-30-2022 History of Social function [facility] Work Phone: Start: 12-28-2019 End: 04-30-2022 Social connection and isolation panel [facility] Work Phone: Do you belong to any clubs or organizations such as adventism groups, unions, fraternal or athletic groups, or school groups? Yes [facility] Work Phone: Are you now , , , , never or living with a partner? [facility] Work Phone: How hard is it for y ou to pay for the very basics like food, housing, medical care, and heating Not hard at all [facility] Work Phone: Do you feel stress - tense, restless, nervous, or anxious, or unable to sleep at night because your mind is troubled all the time - these days [OSQ] Only a little [facility] Work Phone: (I/We) worried whebelén er (my/our) food would run out before (I/we) got money to buy more. Never true [facility] Gather Phone: NEGATED: Highlighted rowStart: DEMARIO History of tobacco use Passive smoker [facility] Work Phone: Clinical Notes 11-24-2008 to 03-10-2023 Telephone Encounter - Trina Kaiser APRN.CNP - 03/10/2023 3:25 PM ESTTelephone Encounter - Katherine Thomas RN - 03/10/2023 2:27 PM ESTTrina Kaiser APRN.CNP - 01/27/2023 7:15 AM EDT Note Date & Type Note Facility 03-10-2023 Miscellaneous Notes Rx sent. Trina Kaiser APRN.CNP Patient would like to try the estrogen cream. Pharmacy verified. Katherine Thomas RN Vaginal estrogen cream would be the [...] Lorraine Avila RN documented in this encounter [facility] 01-27-2023 Note HNO ID: [id number] Author: Trina Kaiser APRN.CNP Service: ? Author [...] L4 SAB0 IAB0 Ectopic0 Multiple0 Live Births4 Lamination Builder History LMP: 11/19/2022 (Exact Date), Having periods Age at Menarche: Age at First : Age at Menopause: Lamination Builder History Comments: Sexual Activity: Yes; Male Contraception: [...] external genitalia normal, normal Bartholin's glands, urethra, [place]'s glands, no vulvar lesions, no cervical lesions, [...] year or sooner as needed Trina Kaiser APRN.[facility] 01-27-2023 History of Presen t illness [...] L4 SAB0 IAB0 Ectopic0 Multiple0 Live Births4 Lamination Builder History LMP: 11/19/2022 (Exact Date), Having periods Age at Menarche: Age at First : Age at Menopause: Lamination Builder History Comments: Sexual Activity: Yes; Male Contraception: [...] external genitalia normal, normal Bartholin's glands, urethra, [place]'s glands, no vulvar lesions, no cervical lesions, [...] Trina Kaiser APRN.KRISTIE documented in this encounter [facility] 01-15-2023 Miscellaneous Notes January 16, 2023 PID: [id number] Maxine Zuniga [id number] [id number] Dear Ms. Zuniga, We are pleased to [...] report will be kept on file at [facility] as part of your permanent medical record and are available for your continuing care. Thank you for allowing us to help in meeting your health care needs. Sincerely, Dr. Lundberg Interpreting Radiologist [facility] (Normal over 40) documented in this encounter [facility] 01-15-2023 Note HNO ID: [id number] Author: Cecilia Her Mammo Tech Service: ? Author Type: Fish Pitcher Type: Progress Notes Filed: 01/15/2023 7:51 AM Note Text: Radiology Service Progress Note PATIENT NAME: Maxine Znuiga DATE OF SERVICE: January 15, 2023 TIME: [...] Johanna Finney January 15, 2023 7:31 AM [facility] 01-15-2023 History of Presen t illness Narrative [...] 2023 7:31 AM documented in this encounter [facility] 05-08-2022 Note HNO ID: [id number] Author: Kami Bahena RN Service: ? Author Type: Registered Nurse Type: Nursing Progress Note Filed: 05/08/2022 10:00 AM Note Text: Pt more awake. at bedside. Given snack and drink. Kami Bahena RN [facility] 05-08-2022 Nurse Note Pt more awake. at bedside. Given snack and drink. Kami Bahena RN Pt received in PACU. Pt extremely drowsy, but arouses slightly. Appears comfortable. Abd soft and non distended. Kami Bahena RN documented in this encounter [facility] 05-08-2022 History and physical note UPDATED PROCEDURAL [...] Maxine Zuniga 1970 REFERRING PHYSICIAN: Trina Kaiser APRN.HANDMADE TILE ARTIST CHIEF COMPLAINT: Consult (colonoscopy) HPI: The patient [...] Maxine Zuniga 1970 REFERRING PHYSICIAN: Trina Kaiser APRN.HANDMADE TILE ARTIST CHIEF COMPLAINT: Consult (colonoscopy) HPI: The patient [...] entered by the nurse and reviewed by sc Nursing Notes: Nelda Hobson LPN 02/13/2022 4:10 [...] Stephany Bravo MD documented in this encounter [facility] 02-13-2022 History of Presen t illness Narrative HISTORY AND PHYSICAL Maxine Zuniga 1970 REFERRING PHYSICIAN: Trina Kaiser APRN.HANDMADE TILE ARTIST CHIEF COMPLAINT: Consult (colonoscopy) HPI: The patient [...] patient was offered a surgery/procedure at a [facility]. The provider and patient have discussed in [...] patient will be scheduled for colonoscopy at [facility] Medical Decision Making: Risk: Low: Low risk from testing/treatment Medical Decision Making Level: 2 - Straightforward Stephany Bravo MD documented in this encounter [facility] 02-13-2022 Instructions Stephany Bravo MD - 02/13/2022 [...] If you do not have a responsible ambulance driver paramedic (family member or friend) with you to [...] exam. 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 Lamination Builder History LMP: 12/14/2020, Having periods Age at Menarche: Age at First : Age at Menopause: Lamination Builder History Comments: Sexual Activity: Yes; Male Contraception: [...] external genitalia normal, normal Bartholin's glands, urethra, [place]'s glands, no vulvar lesions, no cervical lesions, [...] Trina Kaiser APRN.KRISTIE documented in this encounter [facility] documented as of this encounter (statuses as of 01/25/2022) [facility] History of Past illness Narrative* Problem Noted Date Resolved Date Other and unspecified ovarian cyst 11/24/2008 02/12/2011 Excessive or frequent menstruation 03/09/2008 08/22/2015 Placenta previa without hemorrhage, antepartum 0 09/19/2006 10/14/2006 SUPRF HIGH RISK NEC [V23.89] 7 12/11/2006 Supervision of other normal 04/25/2006 03/09/2008 documented as of this encounter (statuses as of 02/16/2022) [facility] History of Past illness Narrative* Problem Noted Date Diagnosed Date Resolved Date Other and unspecified ovarian cyst 11/24/2008 02/12/2011 Excessive or frequent menstruation 03/09/2008 08/22/2015 Placenta previa without hemo rrhage, antepartum 09/19/2006 10/14/2006 SUPRF HIGH RISK NEC [V23.89] 05/15/2006 12/11/2006 Supervision of other normal 04/25/2006 03/09/2008 documented as of this encounter (statuses as of 01/18/2023) [facility] History of Past illness Narrative* Problem Noted Date Diagnosed Date Resolved Date Other and unspecified ovarian cyst 11/24/2008 02/12/2011 Excessive or frequent menstruation 03/09/2008 08/22/2015 Placenta previa without hemo rrhage, antepartum 09/19/2006 10/14/2006 SUPRF HIGH RISK NEC [V23.89] 05/15/2006 12/11/2006 Supervision of other normal 04/25/2006 03/09/2008 documented as of this encounter (statuses as of 01/27/2023) [facility] History of Past illness Narrative* Problem Noted Date Diagnosed Date Resolved Date Other and unspecified ovarian cyst 11/24/2008 02/12/2011 Excessive or frequent menstruation 03/09/2008 08/22/2015 Placenta previa without hemo rrhage, antepartum 09/19/2006 10/14/2006 SUPRF HIGH RISK NEC [V23.89] 05/15/2006 12/11/2006 Supervision of other normal 04/25/2006 03/09/2008 documented as of this encounter (statuses as of 02/16/2023) [facility] History of Past illness Narrative* Problem Noted Date Diagnosed Date Resolved Date Other and unspecified ovarian cyst 11/24/2008 02/12/2011 Excessive or frequent menstruation 03/09/2008 08/22/2015 Placenta previa without hemo rrhage, antepartum 09/19/2006 10/14/2006 SUPRF HIGH RISK NEC [V23.89] 05/15/2006 12/11/2006 Supervision of other normal 04/25/2006 03/09/2008 documented as of this encounter (statuses as of 02/16/2023) [facility] History of Past illness Narrative* Problem Noted Date Diagnosed Date Resolved Date Other and unspecified ovarian cyst 11/24/2008 02/12/2011 Excessive or frequent menstruation 03/09/2008 08/22/2015 Placenta previa without hemo rrhage, antepartum 09/19/2006 10/14/2006 SUPRF HIGH RISK NEC [V23.89] 05/15/2006 12/11/2006 Supervision of other normal 04/25/2006 03/09/2008 documented as of this encounter (statuses as of 03/11/2023) [facility] Diagnosis Encounter for gynecological examination (general) (routine) without abnormal findings- Primary Encounter for screening mammogram for breast cancer Vaginal odor Unspecified symptom associated with female genital organs Encounter for screening for malignant neoplasm of colon Special screening for malignant neoplasms, colon [facility] Diagnosis Encounter for screening for malignant neoplasm of colon Special screening for malignant neoplasms, colon [facility] Diagnosis Encounter for gynecological examination (general) (routine) without abnormal findings- Primary Encounter for screening mammogram for breast cancer Dense breast tissue [facility] Diagnosis Screening for colon cancer- Primary Special screening for malignant neoplasms, colon Encounter for screening for malignant neoplasm of colon Special screening for malignant neoplasms, colon [facility] Diagnosis Encounter for screening mammogram for breast cancer documented in this encounter [facility] for referral (narrative)* Outpatient Procedure (Routine) - Pending Review Specialty Diagnoses / Procedures Referred By Contac t Referred To Contact [facility] Diagnoses Encounter for screening for malignant neoplasm of colon Procedures COLONOSCOPY SCREENING COLONOSCOPY FLX DX W/COLLJ SPEC WHEN Stephany Sweeney MD [address] [place] [address] [facility] [address] [place] [address] Referral ID Status Reason Start Date Expiration Date Visits Requested Visits Authorized [id number] Pending Review Auto-Generat ed Referral 02/13/2022 02/13/2023 1 1 [facility] for referral (narrative)* Diagnostic Procedure Only (Routine) - Pending Review Specialty Diagnoses / Procedures Referred By Contac t Referred To Contact [facility] Diagnoses Encounter for screening mammogram for breast cancer Dense breast tissue Procedures PAULETTE SCREENING W EVERETTE SCREENING DIGITAL BREAST TOMOSYNTHESIS BI SCREENING MAMMOGRAPHY BI 2-VIEW BREAST INC Trina Tyson APRN.CNP [address] [place] [address] [facility] [address] [place] [address] Referral ID Status Reason Start Date Expiration Date Visits Requested Visits Authorized [id number] Pending Review Auto-Generat ed Referral 3 02/26/2024 1 1 [facility] for referral (narrative)* Outpatient Procedure (Routine) - Closed Specialty Diagnoses / Procedures Referred By Contac t Referred To Contact [facility] Diagnoses Encounter for screening for malignant neoplasm of colon Procedures COLONOSCOPY SCREENING COLONOSCOPY FLX DX W/COLLJ SPEC WHEN Stephany Sweeney MD [address] [place] [address] [facility] [address] [place] [address] Referral ID Status Reason Start Date Expiration Date V isits Requested Visits Authorized [id number] Closed Auto-Generate d Referral 02/13/2022 02/13/2023 1 1 [facility] for referral (narrative)* Diagnostic Procedure Only (Routine) - Closed Specialty Diagnoses / Procedures Referred By Magdalena t Referred To Contact [facility] Diagnoses Encounter for screening mammogram for breast cancer Procedures PAULETTE SCREENING SCREENING MAMMOGRAPHY BI 2-VIEW BREAST INC CAD Trina Kaiser APRN.HANDMADE TILE ARTIST [address] [place] [address] [facility] [address] [place] [address] Referral ID Status Reason Start Date Expiration Date V isits Requested Visits Authorized [id number] Closed Auto-Generate d Referral 01/25/2022 02/24/2023 1 1 [facility] for visit Narrative* Outpatient Procedure (Routine) - Closed Specialty Diagnoses / Procedures Referred By Contac t Referred To Contact [facility] Diagnoses Encounter for screening for malignant neoplasm of colon Procedures COLONOSCOPY SCREENING COLONOSCOPY FLX DX W/COLLJ SPEC WHEN Stephany Sweeney MD [address] [place] [address] [facility] [address] [place] [id number] Referral ID Status Reason Start Date Expiration Date V isits Requested Visits Authorized [id number] Closed Auto-Generate d Referral 02/13/2022 02/13/2023 1 1 [facility] for visit Narrative* Diagnostic Procedure Only (Routine) - Closed Specialty Diagnoses / Procedures Referred By Magdalena t Referred To Contact [facility] Diagnoses Encounter for screening mammogram for breast cancer Procedures PAULETTE SCREENING SCREENING MAMMOGRAPHY BI 2-VIEW BREAST INC CAD Trina Kaiser APRN.HANDMADE TILE ARTIST [address] [place] [address] [facility] [address] [place] [address] Referral ID Status Reason Start Date Expiration Date V isits Requested Visits Authorized [id number] Closed Auto-Generate d Referral 01/25/2022 02/24/2023 1 1 [facility] Reason for Referral Specialty Diagnoses / Procedures Referred By Contac t Referred To Contact General Surgery Diagnoses Encounter for screening for malignant neoplasm of colon Procedures CONSULT TO GENERAL SURGERY OFFICE/OUTPATIENT [facility] HIGH MDM 60-74 MINUTES Trina Kaiser APRN.HANDMADE TILE ARTIST [address] [place] [address] Referral ID Status Reason Start Date Expiration Date Visits Requested Visits Authorized [id number] Authorized PCP Requested Referral 2 01/25/2023 1 1 Specialty Diagnoses / Procedures Referred By Magdalena levy Referred To Contact [facility] Diagnoses Encounter for screening mammogram for breast cancer Procedures PAULETTE SCREENING SCREENING MAMMOGRAPHY BI 2-VIEW BREAST INC CAD Trina Kaiser APRN.HANDMADE TILE ARTIST [address] [place] [address] [facility] [address] [place] [address] Referral ID Status Reason Start Date Expiration Date Visits Requested Visits Authorized [id number] Pending Review Auto-Generat ed Referral 2 02/24/2023 [...] or prosecute any alcohol or drug abuse patient.[facility] the event this information is protected by the Federal Confidentiality of Alcohol and Drug Abuse Patient Records regulations: The Federal rules restrict any use of the information to criminally investigate or prosecute any alcohol or drug abuse patient.[facility] the event this information is protected by the Federal Confidentiality of Alcohol and Drug Abuse Patient Records regulations: The Federal rules restrict any use of the information to criminally investigate or prosecute any alcohol or drug abuse patient.[facility] the event this information is protected by the Federal Confidentiality of Alcohol and Drug Abuse Patient Records regulations: The Federal rules restrict any use of the information to criminally investigate or prosecute any alcohol or drug abuse patient.[facility] the event this information is protected by the Federal Confidentiality of Alcohol and Drug Abuse Patient Records regulations: The Federal rules restrict any use of the information to criminally investigate or prosecute any alcohol or drug abuse patient.[facility] the event this information is protected by the Federal Confidentiality of Alcohol and Drug Abuse Patient Records regulations: The Federal rules restrict any use of the information to criminally investigate or prosecute any alcohol or drug abuse patient.[facility] Center[facility] the event this information is protected by the Federal Confidentiality of Alcohol and Drug Abuse Patient Records regulations: The Federal rules restrict any use of the information to criminally investigate or prosecute any alcohol or drug abuse patient.[facility] Reason for Visit (unrecogniz ed section and content) Reason Comments Consult colonoscopy Specialty Diagnoses / Procedures Referred By Magdalena levy Referred To Contact General Surgery Diagnoses Encounter for screening for malignant neoplasm of colon Procedures CONSULT TO GENERAL SURGERY OFFICE/OUTPATIENT [facility] 60-74 MINUTES Trina Kaiser APRN.HANDMADE TILE ARTIST [address] [place] [address] Referral ID Status Reason Start Date Expiration Date V isits Requested Visits Authorized [id number] Closed PCP Requested Referral 01/25/2022 01/25/2023 1 1 Reason Comments Yearly Exam Reason Comments Patient Question Care Teams (unrecognized sec tion and content) Internet Retailer Relationship Specialty Start Date End Date Ann Marie Berry MD [address] [place], [place] [id number] PCP - General Family Medicine 04/26/18 Internet Retailer Relationship Specialty Start Date End Date Ann Marie Berry MD [address] [place] [address] PCP - General Family Medicine 04/26/18 Internet Retailer Relationship Specialty Start Date End Date Ann Marie Berry MD [address] [place] [address] PCP - General Family Medicine 04/26/18 Internet Retailer Relationship Specialty Start Date End Date Ann Marie Berry MD [address] [place], [place] [address] PCP - General Family Medicine 04/26/18 Internet Retailer Relationship Specialty Start Date End Date Ann Marie Berry MD [address] [place] [address] PCP - General Family Medicine 04/26/18 Internet Retailer Relationship Specialty Start Date End Date Ann Marie Berry MD [address] [place] [address] PCP - General Family Medicine 04/26/18 INFORMATION [...] BE BASED ON THE PRIMARY CLINICAL RECORDS. [facility]. provides no warranty or guarantee of the accuracy or completeness of information in this document.
[2023-05-22 08:08] VITALS: BP 100/70; PULSE 62; RESP 16; TEMP 37; O2SAT 100; BMI 20.2
[2023-05-22] MEDS: Lactated Ringers 1,000 ML 15 ML IV (08:16)
[2023-05-22 08:36] LABS: Internal QC Validated? YES +Cl - CLEAR BKGD; Pregnancy, Urine Negative Negative; Record Kit Lot#,Urine Preg HCG0000718086
[2023-05-22] MEDS: Cefazolin 2 GM in 0.9% Normal Saline (100mL Bag) 100 ML IV (09:34)
[2023-05-22 09:55] VITALS: BP 100/60; BP 100/70; PULSE 63; RESP 16; TEMP 36.3; O2SAT 94
[2023-05-22 10:00] VITALS: BP 100/70; BP 99/63; PULSE 60; RESP 16; O2SAT 95
[2023-05-22 10:05] VITALS: BP 100/70; BP 98/56; PULSE 58; RESP 16; TEMP 36.2; O2SAT 95
--- NOTE | 2023-05-22 10:07 | DCINST_ITS ---
Discharge Instructions Diet Discharge Diet: No restrictions Activity Discharge Activity: Return to Normal Activity Dressing / Incision Call your doctor if your incision/area has: Continuous Slow Oozing, Sudden Increased Bleeding and Foul Smelling Discharge Call your doctor if you observe: Fever of 101 or Higher, Inability to urinate and Inability to have a bowel movement Follow Up Care Please Follow Up With: Sarah Dior MD When: The office will call to make follow-up appointment for approximately 2 weeks. Test Results: Test results from this visit will be discussed in further detail at your follow- up appointment, if applicable. Discharge Plan Admission Attending Provider: Sarah Dior Primary Care Provider: Bia Carranza Discharge Orders/Prescriptions Prescriptions: Continued estradiol 0.01 % (0.1 mg/gram) cream 1 appful VAGINAL MOWEFR Patient Comments: insert 0.5 grams vaginally at bedtime for 2 weeks then 1 TO 3 TIMES PER WEEK FOR MAINTENANCE. trimethoprim 100 mg tablet 100 mg PO QHS Patient Comments: take 1 tablet by mouth at bedtime calcium 600 mg capsule 1,200 mg PO DAILY One Daily Multivit-Iron(folic) 18-400 mg-mcg tablet 2 tab PO DAILY ascorbic acid (vitamin C) [C Complex] 500 mg tablet extended release 500 mg PO DAILY AZO D-Mannose 500 mg capsule 1,000 mg PO DAILY Probiotic Acidophilus 250 million cell capsule 500 mmu cells PO DAILY Referrals / Follow Up: Bia Carranza, BE[facility] [Primary Care Provider] - Disposition Disposition (needs filled in before D/C Order can be placed): Home, Self Care
--- NOTE | 2023-05-22 10:10 | OP.PCM_ITS ---
Report of Operation Date of Procedure: 05/22/23 Pre-Operative Diagnosis: Female urethral stricture, urinary tract infections Post-Operative Diagnosis: Same Surgery/Procedure Performed:: Urethral dilation, cystoscopy Surgeon: Sarah Dior Type of Anesthesia: MAC Specimen's removed: None Description of Procedure: The patient is a 52-year-old female with recurrent urinary tract infections who was found to have urethral stenosis/urethral stricture at an attempt on office cystoscopy. She now presents for urethral dilation and cystoscopy under anesthesia. Informed consent has been obtained. The patient was taken to the operating room and placed on the operating room table. Anesthesia monitored the head, neck, airway, IV access and vital signs throughout the case. Once anesthesia was appropriately administered, the patient was placed into dorsolithotomy position was prepped and draped in usual sterile fashion. The urethral meatus was once again noted to be small in stature. Systematic dilation was performed using female sounds starting with [address] to [address] without complication. There was cracking of the distal urethral mucosa. At this time the cystoscope was inserted without obstruction into the urinary bladder under direct visualization. The bladder mucosa was visualized in its entirety revealing no evidence of mass, erythema, ulceration or abnormality. The ureteral orifices were located in the correct anatomic position on the area of the trigone. There were no other urethral abnormalities identified. The patient's bladder was then emptied and the cystoscope was removed. The patient was awakened and taken to the recovery room in good condition. There were no complications during this procedure. Complications None Admit VTE Documentation VTE Present on Admission: Yes VTE Mechan Device Prophylaxis: SCD's VTE Pharm Prophylaxis ordered?: No Reason prophylaxis not ordered:: Treatment Not Indicated
[2023-05-22 10:20] VITALS: BP 100/70
== END 2023-05-22 10:40 | disposition home or self-care (01) ==
LOC: SDC 07:46 → AC 07:48
PROVIDERS: Anesthesiology; PCP Nurse Practitioner Family; Referring Provider Urology; Visit Provider Urology
PROC: 0T7D8ZZ Dilation of Urethra, Via Natural or Artificial Opening Endoscopic (ICD-10-PCS; CPT 52281; principal; 2023-05-22 09:10)
DX: N35.82 Other urethral stricture, female (principal); Z87.440 Personal history of urinary (tract) infections; R35.1 Nocturia; N95.2 Postmenopausal atrophic vaginitis; N39.0 Urinary tract infection, site not specified; N32.89 Other specified disorders of bladder
CPT/HCPCS: 52281; 00910; 81025; J7120; J2405

== ENCOUNTER → 2023-12-22 | Outpatient (CLI) | payer OTHER, SELFPAY ==
[2023-12-22 10:18] LABS: Absolute Lymphocyte Count 1.32 X10^3/uL (0.83-4.51); Absolute Neutrophil Count 1.6 X10^3/uL (2.0-7.7); Basophil# 0.04 X10^3/uL; Basophil% 1.2 % (0-1); Eosinophil# 0.07 X10^3/uL; Eosinophils% 2.1 % (0-5); Hematocrit 42.3 % (37-47); Hemoglobin 13.6 g/dL (12.0-15.0); Lymphocyte # 1.32 X10^3/ul (0.83-4.51); Lymphocyte % 39.2 % (19-41); Mean Corp Hgb Conc 32.2 g/dL (32-36); Mean Corpuscular Hgb 29.9 pg (27.0-32.0); Mean Platelet Vol. 10.3 fl (6.2-12.0); Monocyte# 0.36 X10^3/uL; Monocyte% 10.7 % (0-10); NRBC Flagged by Analyzer 0 % (0-5); Neutrophil # 1.57 X10^3/uL (2.7-7.7); Neutrophil % 46.5 % (47-70); Platelet Count 260 K/mm3 (150-450); RBC Distribution Width CV 12.5 % (11.6-14.6); RBC Distribution Width SD 43.1 fl (35.1-43.9); Red Blood Count 4.55 M/mm3 (4.2-5.4); White Blood Count 3.4 K/mm3 (4.4-11.0)
[2023-12-22 10:42] LABS: AST(SGOT) 25 U/L (15-37); Alanine Aminotransfer ALT/SGPT 25 U/L (13-56); Albumin, Serum 3.7 g/dL (3.2-5.0); Alkaline Phosphatase 56 U/L (45-117); Anion Gap 4 (5-15); BUN 16 mg/dL (7-18); BUN/Creat Ratio 14.7 RATIO (10-20); Calcium,Total 9.4 mg/dL (8.5-10.1); Chloride 106 mmol/L (98-107); Cholesterol 196 mg/dL (200); Creatinine, Serum 1.09 mg/dL (0.55-1.02); EST Glomerular Filtration Rate 56 mL/min (>60); Est Glom Filt Rate - Afr Amer 68 mL/min (>60); Globulin 3.7 g/dL (2.2-4.2); Glucose 94 mg/dL (74-106); High Density Lipoprotein 78 mg/dL; Potassium 4.3 mmol/L (3.5-5.1); Protein, Total 7.4 g/dL (6.4-8.2); Sodium Level 140 mmol/L (136-145); Triglycerides 74 mg/dL; Very Low Density Lipoprotein 15 mg/dL (5-40)
== END | disposition home or self-care (01) ==
PROVIDERS: PCP Nurse Practitioner Family; Referring Provider Nurse Practitioner Family; Visit Provider Nurse Practitioner Family
DX: Z00.01 Encounter for general adult medical examination with abnormal findings (principal)
CPT/HCPCS: 36415; 80053; 80061; 85025

== ENCOUNTER → 2024-02-03 | Outpatient (CLI) | payer OTHER, SELFPAY ==
--- NOTE | 2024-02-03 16:30 | RAD_ITS ---
STUDY: X-RAY CHEST REASON FOR EXAM: Female, 53 years old. concerns for pneumonia TECHNIQUE: Frontal and lateral views of the chest. COMPARISON: None. FINDINGS: The lungs are clear and expanded. There is no demonstrated pleural abnormality. Normal size heart. Normal mediastinum and esperanza. Normal visualized pulmonary arteries. Normal visualized aortic arch and descending thoracic aorta. Normal visualized thoracic spine. Normal visualized ribs, clavicles, and shoulders. There is no demonstrated abnormality of the visualized soft tissue structures of the upper abdomen. RAD/Chest PA and Lateral IMPRESSION: Normal x-ray examination of the chest. Electronically Signed: Jb Barreto MD at 17:32 EDT ,
--- OUTSIDE RECORDS SUMMARY | 2024-02-03 17:25 | XMS RPT_ITS | CCD ---
Author Organization [facility] Care Team Providers Care Cracker Off Name Role Phone Ann Marie Berry MD Primary Care Provider ANN MARIE BERRY Primary Care Unavailable JOBTRINA Redding Referring Unavailable ANN MARIE BERRY Primary Care Unavailable JOB TRINA Referring Unavailable TRINA KAISER Attending Unavailable Ann Marie Berry MD Primary Care Provider Allergies Allergy Classification Reported Allergen(s) Allergy Type Date of Onset Reaction(s) Facility (8 sources) SEASONAL [Other] Propensity to adverse reactions 7 [facility] Work Phone: (1 source) OTHER; Translations: [OTHER] Propensity to adverse reactions (disorder) 7 [facility] Repository Medications Current Medications Medication Drug Class(es) Dates Sig (Normalized) Sig (Original) calcium carbonate 500 mg chewable tablet (8 sources) Start: 04-02-2005 CALCIUM ANTACID 500 MG CHEWABLE TAB Take one(1) tablet daily. 0 04/02/2005 Active Comment on above: Take one(1) tablet d aily. estradiol 0.1 mg/ml vaginal cream (2 sources) Estrogen Start: 03-10-2023 estradiol (ESTRACE) 0.01 % (0.1 mg/gram) vaginal cream Use 0.5g vaginally at bedtime for 2 weeks then 1-3 time/weeks for maintenance. 42.5 g 2 03/10/2023 Active Comment on above: Use 0.5g vaginally a t bedtime for 2 weeks then 1-3 time/weeks for maintenance. MULTIVITAMIN ORAL (8 sources) MULTIVITAMIN ORA L Take by mouth. Active MULTIVITAMIN ORA L Take by mouth. 0 Active Comment on above: Take by mouth. Completed/Discontinued Medications Medication Drug Class(es) Dates Sig (Normalized) Sig (Original) Lactobac no.41/Bifidobact no.7 (PROBIOTIC-10 ORAL) (6 sources) End: 01-27-2023 Lactobac no.41/Bifidobact no.7 (PROBIOTIC-10 ORAL) Take by mouth. 0 01/27/2023 Discontinued Lactobac no.41/B ifidobact no.7 (PROBIOTIC-10 ORAL) Take by mouth. 0 Active Comment on above: Take by mouth. omega-3/dha/epa/dpa/fish oil (OMEGA-3 2100 ORAL) (6 sources) End: 01-27-2023 omega-3/dha/epa/dpa/fish oil (OMEGA-3 2100 ORAL) Take by mouth. 0 01/27/2023 Discontinued omega-3/dha/epa/ dpa/fish oil (OMEGA-3 2100 ORAL) Take by mouth. 0 Active Comment on above: Take by mouth. polyethylene glycol 3350 067172 mg / potassium chloride 2970 mg / sodium bicarbonate 6740 mg / sodium chloride 5860 mg / sodium sulfate 24895 mg powder for oral solution (1 source) Osmotic Laxative Start: 02-13-2022 End: 02-13-2022 peg 3350-Electrolytes (GOLYTELY) 236-22.74-6.74 -5.86 gram suspension Indications: Encounter for screening for malignant neoplasm of colon Take 4,000 mL by mouth one time only for 1 dose. Refer to printed prep instructions from your provider. 4000 mL 0 02/13/2022 02/13/2022 Comment on above: Take 4,000 mL by lorraine th one time only for 1 dose. Refer to printed prep instructions from your provider. Problems Active Problems Problem Classification Problem Date Documented Date Episodic/Chronic Disorders of lipid metabolism (8 sources) Hyperlipidemia; Translations: [Hyperlipidemia, unspecified] Onset: 06-06-2017 12-28-2019 Chronic Nonmalignant breast conditions (2 sources) Breast finding ; Translations: [Dense breast tissue] 01-27-2023 Episodic Other female genital disorders (8 sources) Premenstrual tension syndrome; Translations: [Premenstrual tension syndrome] Onset: 02-12-2011 02-12-2011 Chronic Other female genital disorders (1 source) Vaginal odor; Translations: [Other specified noninflammatory disorders of vagina] Episodic Other screening for suspected conditions (not mental disorders or infectious disease) (9 sources) Patient encounter status; Translations: [Encounter for screening mammogram for malignant neoplasm of breast] Onset: 01-21-2024 Episodic Unclassified (1 source) Dense breast tissue; Translations: [Dense breast tissue] Onset: 01-21-2024 Past or Other Problems Problem Classification Problem Date Documented Da te Episodic/Chronic Hemorrhage during ; abruptio placenta; placenta previa (1 source) Placenta previa without hemorrhage; Translations: [Complete placenta previa NOS or without hemorrhage, unspecified trimester] Onset: 09-19-2006 Resolved: 10-14-2006 10-23-2023 Episodic Menstrual disorders (1 source) Excessive and frequent menstruation; Translations: [Excessive and frequent menstruation with regular cycle] Onset: 03-09-2008 Resolved: 08-22-2015 08-22-2015 Chronic Other circulatory disease (8 sources) Low blood pressure; Translations: [Hypotension, unspecified] Onset: 06-06-2017 12-28-2019 Episodic Other complications of (1 source) Supervision of other high risk pregnancies, unspecified trimester; Translations: [Supervision of other high-risk ] Onset: 05-15-2006 Resolved: 12-11-2006 10-23-2023 Episodic Other and delivery including normal (1 source) Normal ; Translations: [Encounter for supervision of other normal , unspecified trimester] Onset: 04-25-2006 Resolved: 03-09-2008 03-09-2008 Episodic Ovarian cyst (1 source) Cyst of ovary; Translations: [Unspecified ovarian cyst, unspecified side] Onset: 11-24-2008 Resolved: 02-12-2011 02-12-2011 Episodic Results Test Name Value Interpretation Reference Range Facility DBT Breast - bilateral scree pérez 01-21-2024 IMPRESSION: There is no mammographic evidence of malignancy in either breast. Routine follow-up mammogram in 1 year is recommended. BI-RADS Category 1: Negative RISK: Based on the Tyrer-Cuzick (TC) risk assessment model, this patient has a 7.9% lifetime risk of developing breast cancer, meaning they are at average risk for developing breast cancer. However, this is only an estimate based on available history provided on the patient's questionnaire. We encourage all patients talk with their providers about these results, further recommendations for managing breast health, and appropriate supplemental screening options if the patient has dense breast tissue. Interpreting Radiologist: Fritz Broussard M.D. Electronically signed on: 01/21/2024 Railway Station Manager: JENNIFER Transcrileatha Date/Time: Jan 21 2024 7:10A Dictated by: GENNY MONZON DO This examination was interpreted and the report reviewed and electronically signed by: ANDREINA VAUGHN MD on Jan 21 2024 12:24PM [facility] DIVISION OF RADIOLOGY * * *Final Report* * * DATE OF EXAM: Jan 21 2024 7:43AM [facility] 0582 - [facility] SCREENING [place] / PROCEDURE REASON: multiple diagnoses * * * * Physician Interpretation * * * * RESULT: [facility] [address] [place] [address] HISTORY: Patient is 53 years old and is seen for screening and is asymptomatic in both breasts. The patient has no personal history of cancer. COMPARISON STUDIES: The present examination has been compared to prior imaging studies dated 12/27/2020 (mammogram), 12/28/2021 (mammogram) and 01/15/2023 (mammogram). MAMMOGRAM TECHNIQUE: The study was acquired using full field digital technology and interpreted from soft copy. Digital Breast Tomosynthesis (DBT) images were obtained and used to assist in the interpretation of this examination. Computer-aided detection was utilized by the radiologist in the interpretation of this examination. MAMMOGRAM FINDINGS: The breasts are heterogeneously dense, which may obscure small masses. No suspicious masses, calcifications or other abnormalities are seen in either breast. There are no significant changes from the prior study. DIVISION OF RADIOLOGY Provider, [facility] [place] - 01/21/2024 * * *Final Report* * * DATE OF EXAM: Jan 21 2024 7:43AM [facility] 0582 - [facility] SCREENING [place] / PROCEDURE REASON: multiple diagnoses * * * * Physician Interpretation * * * * RESULT: [facility] [address] [place] [address] HISTORY: Patient is 53 years old and is seen for screening and is asymptomatic in both breasts. The patient has no personal history of cancer. COMPARISON STUDIES: The present examination has been compared to prior imaging studies dated 12/27/2020 (mammogram), 12/28/2021 (mammogram) and 01/15/2023 (mammogram). MAMMOGRAM TECHNIQUE: The study was acquired using full field digital technology and interpreted from soft copy. Digital Breast Tomosynthesis (DBT) images were obtained and used to assist in the interpretation of this examination. Computer-aided detection was utilized by the radiologist in the interpretation of this examination. MAMMOGRAM FINDINGS: The breasts are heterogeneously dense, which may obscure small masses. No suspicious masses, calcifications or other abnormalities are seen in either breast. There are no significant changes from the prior study. IMPRESSION IMPRESSION: There is no mammographic evidence of malignancy in either breast. Routine follow-up mammogram in 1 year is recommended. BI-RADS Category 1: Negative RISK: Based on the Tyrer-Cuzick (TC) risk assessment model, this patient has a 7.9% lifetime risk of developing breast cancer, meaning they are at average risk for developing breast cancer. However, this is only an estimate based on available history provided on the patient's questionnaire. We encourage all patients talk with their providers about these results, further recommendations for managing breast health, and appropriate supplemental screening options if the patient has dense breast tissue. Interpreting Radiologist: Fritz Broussard M.D. Electronically signed on: 01/21/2024 Railway Station Manager: JENNIFER Transcribe Date/Time: Jan 21 2024 7:10A Dictated by: GENNY MONZON, DO This examination was interpreted and the report reviewed and electronically signed by: ANDREINA VAUGHN MD on Jan 21 2024 12:24PM EST [facility] Radiology Study observation (narrative) [facility] DBT Breast - bilateral scree ningOrdered By: [facility] Provider on 01-21-2024 [facility] SCREENING W T[place]on 01-20 [facility] [place] * * *Final Report* * * DATE OF EXAM: Jan 21 2024 7:43AM [facility] 0582 - [place] SCREENING [place] / PROCEDURE REASON: multiple diagnoses * * * * Physician Interpretation * * * * RESULT: [facility] [address] [place] [address] HISTORY: Patient is 53 years old and is seen for screening and is asymptomatic in both breasts. The patient has no personal history of cancer. COMPARISON STUDIES: The present examination has been compared to prior imaging studies dated 12/27/2020 (mammogram), 12/28/2021 (mammogram) and 01/15/2023 (mammogram). MAMMOGRAM TECHNIQUE: The study was acquired using full field digital technology and interpreted from soft copy. Digital Breast Tomosynthesis (DBT) images were obtained and used to assist in the interpretation of this examination. Computer-aided detection was utilized by the radiologist in the interpretation of this examination. MAMMOGRAM FINDINGS: The breasts are heterogeneously dense, which may obscure small masses. No suspicious masses, calcifications or other abnormalities are seen in either breast. There are no significant changes from the prior study. IMPRESSION: There is no mammographic evidence of malignancy in either breast. Routine follow-up mammogram in 1 year is recommended. BI-RADS Category 1: Negative RISK: Based on the Tyrer-Cuzick (TC) risk assessment model, this patient has a 7.9% lifetime risk of developing breast cancer, meaning they are at average risk for developing breast cancer. However, this is only an estimate based on available history provided on the patient's questionnaire. We encourage all patients talk with their providers about these results, further recommendations for managing breast health, and appropriate supplemental screening options if the patient has dense breast tissue. Interpreting Radiologist: Fritz Broussard M.D. Electronically signed on: 01/21/2024 Railway Station Manager: JENNIFER Transcrileatha Date/Time: Jan 21 2024 7:10A Dictated by: GENNY MONZON, DO This examination was interpreted and the report reviewed and electronically signed by: ANDREINA VAUHGN MD on Jan 21 2024 12:24PM EST [id number] CN Normal [facility] 03-10-2023 ALIA Telephone (OBGYWM) MAXINE ZUNIGA ([id number]) 1970 F Date Time Provider Department 03/10/23 TRINA KAISER During your visit today, we recorded the following information about you: Lorraine Avila RN 03/10/2023 10:36 AM Signed Patient asking if RM could place an order to check her estrogen level. Patient has frequent UTIs. She's had two in the last two months. Typically seen in ER because they get to be so painful. Patient heard that estrogen level could contribute. Are you willing to place the lab order? Trina Smith RN, APRN.CNP 03/10/2023 12:55 PM Signed Her estrogen level does not cause UTIs. The decrease in estrogen during menopause can cause some urethral vaginal changes that could lead to more UTIs. Checking her level would not make any difference in regards to her UTIs. TIFF Wiley Danielle, RN 03/10/2023 1:45 PM Signed Patient notified and understanding. asking if there is anything to help the vaginal/urethral changes or that you recommend she do to be proactive in preventing them. She is taking women's health probiotic. DAVID Chambers Renee, APRN.CNP 03/10/2023 2:02 PM Signed Vaginal estrogen cream would be the option to help with changes, if this is something she wants to do I can sent a Rx in for her,. Trina Kaiser APRN.Katherine Danielle RN 03/10/2023 2:28 PM Signed Patient would like to try the estrogen cream. Pharmacy verified. DAVID Chambers Renee, APRN.CNP 03/10/2023 3:25 PM Signed Rx sent. Trina Kaiser APRN.CNP Allergies As of Date: 03/10/2023 Noted Allergy Reaction SEASONAL [Other] 04/25/2006 Date Reviewed: 01/27/2023 Reviewed by: Trina Kaiser APRN.CNP - Fully Assessed Reason for Visit: Patient Question [7203] Order(s):estradiol (ESTRACE) 0.01 % (0.1 mg/gram) vaginal creamUse 0.5g vaginally at bedtime for 2 weeks then 1-3 time/weeks for maintenance.Disp: 42.5 gRfl: 2 Prescriptions as of 03/10/2023 - estradiol (ESTRACE) 0.01 % (0.1 mg/gram) vaginal cream Use 0.5g vaginally at bedtime for 2 weeks then 1-3 time/weeks for maintenance. - MULTIVITAMIN ORAL Take by mouth. - CALCIUM ANTACID 500 MG CHEWABLE TAB Take one(1) tablet daily. Problem List As Of Date 03/10/2023 Noted Resolved SUPERVIS OTHER NORMAL PREG [Z34.80] 04/25/2006 [facility]09/[facility] [V23.89] [O09.899]05/15/2006 12/11/2006 PLACENTA PREVIA-ANTEPART [O44.00] 09/19/2006 10/14/2006 Excessive or frequent menstruation [N92.0] 03/09/2008 08/22/2015 Other and unspecified ovarian cyst [N83.209] 11/24/2008 02/12/2011 Premenstrual tension syndromes [N94.3] 02/12/2011 Hyperlipidemia [E78.5] 06/06/2017 Hypotension [I95.9] 06/06/2017 Prescriptions ordered this encounter Disp Refills Start End ESTRADIOL 0.01% (0.1 MG/GRAM) VAGINA* 42.5* 2 03/10/2023 Sig: Use 0.5g vaginally at bedtime for 2 weeks then 1-3 time/weeks for maintenance. 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 LMP: 11/19/2022 (Exact Date), Having periods Age at Menarche: Age at First : Age at Menopause: 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 History Comments: Sexual Activity: Yes; Male [...] external genitalia normal, normal Bartholin's glands, urethra, [place]'s glands, no vulvar lesions, no cervical lesions, [...] or sooner as needed Trina Kaiser APRN.KRISTIE Referring Provider: TRINA KAISER [[id number]] Allergies As of Date: 01/27/2023 Noted Allergy Reaction SEASONAL [Other] 04/25/2006 Date Reviewed: 01/27/2023 Reviewed by: Trina Kaiser APRN.CNP - Fully Assessed Reason for Visit: Yearly Exam [187] Primary Visit Diagnosis:Encounter for gynecological examination (general) (routine) without abnormal findings [Z01.419] Other Visit Diagnoses:Encounter for screening mammogram for breast cancer [Z12.31] Dense breast tissue [R92.30] Order(s):[facility] SCREENING [place] [[id number]] Order #: [id number] FUTURE Prescriptions as of 01/27/2023 - CALCIUM ANTACID 500 MG CHEWABLE TAB Take one(1) tablet daily. - MULTIVITAMIN ORAL Take by mouth. Problem List As Of Date 01/27/2023 Noted Resolved SUPERVIS OTHER NORMAL PREG [Z34.80] 04/25/2006 03/09/2008 [facility]PRF HIGH RISK NEC [V23.89] [O09.899]05/15/2006 12/11/2006 PLACENTA PREVIA-ANTEPART [O44.00] 09/19/2006 10/14/2006 Excessive or frequent menstruation [N92.0] 03/09/2008 08/22/2015 Other and unspecified ovarian cyst [N83.209] 11/24/2008 02/12/2011 Premenstrual tension syndrome (more content not included)... [facility] S[facility] 01-15-2023 [facility] COLONOSCOPY SCREENINGon 04-15 [facility] Vital Signs Date Time Vital Sign Value Performing Clinician Faci lity 01-27-2023 07:16-0400 Body height 174 cm Trina Job SALT OPERATOR.FULL STACK PHP DEVELOPER Work Phone: [facility] 01-27-2023 07:16-0400 Body weight 62.32 kg Trina [place] SALT OPERATOR.FULL STACK PHP DEVELOPER Work Phone: [facility] 01-27-2023 07:16-0400 Diastolic blood pressure 60 mm[Hg] Trina [place] SALT OPERATOR.FULL STACK PHP DEVELOPER Work Phone: [facility] 01-27-2023 07:16-0400 Systolic blood pressure 90 mm[Hg] Trina Job SALT OPERATOR.FULL STACK PHP DEVELOPER Work Phone: [facility] 05-08-2022 10:04-0500 Diastolic blood pressure 66 mm[Hg] Stephany Bravo MD Work Phone: [facility] 05-08-2022 10:04-0500 Heart rate 60 /min Stephany Bravo MD Work Phone: [facility] 05-08-2022 10:04-0500 SaO2% (BldA) [Mass fraction] 99 % Stephany Bravo MD Work Phone: [facility] 05-08-2022 10:04-0500 Systolic blood pressure 113 mm[Hg] Stephany Bravo MD Work Phone: [facility] 05-08-2022 09:24-0500 Respiratory rate 14 /min Stephany Bravo MD Work Phone: [facility] 05-08-2022 07:38-0500 Body temperature 99.3 [degF] Stephany Bravo MD Work Phone: [facility] 02-13-2022 16:07-0400 Body height 175.3 cm Stephany Bravo MD Work Phone: [facility] 02-13-2022 16:07-0400 Body temperature 98.49 [degF] Stephany Bravo MD Work Phone: [facility] 02-13-2022 16:07-0400 Body weight 63.5 kg Stephany Bravo MD Work Phone: [facility] 02-13-2022 16:07-0400 Diastolic blood pressure 64 mm[Hg] Stephany Bravo MD Work Phone: [facility] 02-13-2022 16:07-0400 Heart rate 71 /min Stephany Bravo MD Work Phone: [facility] 02-13-2022 16:07-0400 SaO2% (BldA) [Mass fraction] 98 % Stephany Bravo MD Work Phone: [facility] 02-13-2022 16:07-0400 Systolic blood pressure 100 mm[Hg] Stephany Bravo MD Work Phone: [facility] 01-25-2022 07:05-0400 Body height 172.7 cm Trina [place] SALT OPERATOR.FULL STACK PHP DEVELOPER Work Phone: [facility] 01-25-2022 07:05-0400 Body weight 62.6 kg Trina Job SALT OPERATOR.FULL STACK PHP DEVELOPER Work Phone: [facility] 01-25-2022 07:05-0400 Diastolic blood pressure 58 mm[Hg] Trina [place] SALT OPERATOR.FULL STACK PHP DEVELOPER Work Phone: [facility] 01-25-2022 07:05-0400 Systolic blood pressure 90 mm[Hg] Trina Job SALT OPERATOR.FULL STACK PHP DEVELOPER Work Phone: [facility] Encounters Encounter Date Encounter Type Care Provider Facility Start: 01-21-2024 End: 01-21-2024 ambulatory ANN MARIE BERRY Facility:[facility] Start: 01-21-2024 End: 01-21-2024 Subsequent hospital visit by physician Screen Mammo [facility] Comment on above: Encounter for screen ing mammogram for breast cancer [Z12.31] Start: 03-10-2023 Telephone encounter Trina rowe APRN.FULL STACK PHP DEVELOPER Work Phone: OB/Gynecology Comment on above: Patient Question Start: 01-27-2023 End: 01-27-2023 ambulatory ANN MARIE BERRY Facility:[facility] Start: 01-27-2023 End: 01-27-2023 Patient encounter procedure Trina Kaiser SALT OPERATOR.FULL STACK PHP DEVELOPER Work Phone: OB/Gynecology Comment on above: Encounter for gyneco logical examination (general) (routine) without abnormal findings (Primary Dx); Encounter for screening mammogram for breast cancer; Dense breast tissue Start: 01-27-2023 End: 01-27-2023 Patient encounter status Trina Kaiser APRN.FULL STACK PHP DEVELOPER Work Phone: [facility] Work Phone: Start: 01-15-2023 Documentation procedure Mammog song Coordinator [facility] Start: 01-15-2023 Letter encounter Mammography Coordinator [facility] Department Start: 01-15-2023 End: 01-15-2023 Subsequent hospital visit by physician Screen Mammo [facility] Comment on above: Encounter for screen ing mammogram for breast cancer [Z12.31] Start: 05-08-2022 End: 05-08-2022 Subsequent hospital visit by physician Stephany Bravo MD Work Phone: Ambulatory Surgery Comment on above: Encounter for screen ing for malignant neoplasm of colon [Z12.11] Start: 02-13-2022 End: 02-13-2022 Patient encounter procedure Stephany Bravo MD Work Phone: General Surgery Comment on above: Encounter for screen ing for malignant neoplasm of colon Start: 01-25-2022 End: 01-25-2022 Patient encounter procedure Trina Kaiser APRN.FULL STACK PHP DEVELOPER Work Phone: OB/Gynecology Comment on above: Encounter for gyneco logical examination (general) (routine) without abnormal findings (Primary Dx); Encounter for screening mammogram for breast cancer; Vaginal odor; Encounter for screening for malignant neoplasm of colon Start: 01-25-2022 End: 01-25-2022 Patient encounter status Trina Kaiser APRN.CNP Work Phone: OB/Gynecology Procedures Date Procedure Procedure Detail Performing Clinician Start: 01-21-2024 Screening digital br east tomosynthesis bi Trina Kaiser SALT OPERATOR.KRISTIE Work Phone: Start: 01-15-2023 Screening mammograph y bi 2-view breast inc cad Trina Kaiser SALT OPERATOR.KRISTIE Work Phone: Start: 05-08-2022 Colonoscopy flx dx w /collj spec when pfrmd Stephany Bravo MD Work Phone: Start: 05-08-2022 Colonoscopy Mammograph y Coordinator Start: 12-28-2021 Mammography Trina rowe SALT OPERATOR.KRISTIE Work Phone: Start: 01-26-2021 Lipid 1996 panel - S johan or Plasma Mammography Coordinator Plan of Treatment Date Care Activity Detail Author Start: 05-08-2032 Colonoscopy Colonoscopy [facility] Start: 05-08-2032 Colorectal Cancer Screening Colorectal Cancer Screening [facility] Start: 05-08-2032 Screening for malign ant neoplasm of colon [facility] Start: 01-26-2026 Lipid 1996 panel - S johan or Plasma Lipid Screening [facility] Start: 01-26-2026 Lipid panel Lipid Screening [facility] Start: 01-26-2026 LIPID SCREEN LIPID SCREEN [facility] Start: 01-20-2025 Screening for malign ant neoplasm of breast Mammogram Screening [facility] Start: 01-29-2024 End: 01-29-2024 Patient encounter procedure 01/29/2024 7:00 AM EDT Office Visit OB/Gynecology [address] [place] [address] Trina Kaiser SALT OPERATOR.[facility] [address] [place] [address] Annual exam OB/Gynecology Comment on above: Annual exam Start: 01-27-2024 DIABETES SCREEN DIABETES SCREEN [facility] Start: 01-27-2024 Diabetes Screening Diabetes Screenin g [facility] Start: 01-16-2024 Mammography Mammogram Screening [facility] Start: 12-18-2023 HPV TESTING HPV TESTING [facility] Start: 12-18-2023 PAP TESTING PAP TESTING [facility] Start: 12-18-2023 Screening for malign ant neoplasm of cervix Cervical Cancer Screening [facility] Start: 12-14-2023 Covid-19 Vaccine ( season) Covid-19 Vaccine ( season) [facility] Start: 12-14-2023 Influenza vaccination Influenza Vacc ine (#1) [facility] Start: 12-28-2022 Mammography MAMMOGRAM [facility] Start: 12-13-2022 Influenza vaccination Influenza Vacc ine (#1) [facility] Start: 2022 Shingrix Vaccine (1 of 2) Shingrix Vaccine (1 of 2) [facility] Start: 04-14-2022 Depression Assessment Depression Ass essment [facility] Start: 12-13-2021 Influenza vaccination INFLUENZA (#1) [facility] Start: 04-14-2021 DEPRESSION ASSESSMENT DEPRESSION ASS ESSMENT [facility] Start: 2017 COLOGUARD (FIT-DNA) COLOGUARD (FIT-D NA) [facility] Start: 2017 Colonoscopy COLONOSCOPY [facility] Start: 2017 COLORECTAL CANCER SCREENING COLORECTAL CANCER SCREENING [facility] Start: [address] COLONOGRAPHY [facility] Start: 2017 FECAL OCCULT BLOOD FECAL OCCULT BLOO D [facility] Start: 2017 Screening for malign ant neoplasm of colon [facility] Start: 2017 SIGMOIDOSCOPY SIGMOIDOSCOPY [facility] Start: 10-12-2001 Urine microalbumin profile [facility] Start: 12-11-1991 Hepatitis B Vaccine (1 of 3 - 19+ 3-dose series) Hepatitis B Vaccine (1 of 3 - 19+ 3-dose series) [facility] Start: 1990 Anxiety Screening Anxiety Screening [facility] Start: 1990 Depression Screening Depression Scre ening [facility] Start: 1990 HEPATITIS C SCREENING HEPATITIS C [facility] Start: 1990 Hepatitis C screening Hepatitis C [facility] Start: 1990 HIV SCREENING HIV SCREENING [facility] Start: 1990 HIV screening HIV Screening [facility] Start: 06-11-1973 COVID-19 VACCINE (#1) COVID-19 VACCI NE (#1) [facility] Start: 1972 HEPATITIS B (1 of 3 - 3-dose series) HEPATITIS B (1 of 3 - 3-dose series) [facility] Start: 1972 Hepatitis B Vaccine (1 of 3 - 3-dose series) Hepatitis B Vaccine (1 of 3 - 3-dose series) [facility] BACTERIAL VAGINOSIS AMPLIFICATION BACTERIAL VAGINOSIS AMPLIFICATION Lab Routine Vaginal odor Ordered: 01/25/2022 [facility] Work Phone: Comment on above: Ordered: 01/25/2022 EDILBERTO / TRICHOMONA S AMPLIFICATION EDILBERTO / TRICHOMONAS AMPLIFICATION Microbiology Routine Vaginal odor Ordered: 01/25/2022 [facility] Work Phone: Comment on above: Ordered: 01/25/2022 End: 02-26-2024 PAULETTE SCREENING W EVERETTE PAULETTE SCREENING W EVERETTE Radiology Routine Encounter for screening mammogram for breast cancer Dense breast tissue 1 Occurrences starting 01/27/2023 until 02/26/2024 [facility] Work Phone: Comment on above: 1 Occurrences starti ng 01/27/2023 until 02/26/2024 End: 02-13-2023 Screening colonoscopy COLONOSCOPY SCREENING Endoscopy Routine Encounter for screening for malignant neoplasm of colon 1 Occurrences starting 02/13/2022 until 02/13/2023 [facility] Work Phone: Comment on above: 1 Occurrences starti ng 02/13/2022 until 02/13/2023 End: 02-24-2023 Screening mammography bi 2-view breast inc cad PAULETTE SCREENING Radiology Routine Encounter for screening mammogram for breast cancer 1 Occurrences starting 01/25/2022 until 02/24/2023 [facility] Work Phone: Comment on above: 1 Occurrences starti ng 01/25/2022 until 02/24/2023 [facility] Immunizations Immunization Date Immunization Notes Care Provider Michelle harmon 10-13-1991 diphtheria and tetan us toxoids, adsorbed for pediatric use Trina Huntsville SALT OPERATOR.FULL STACK PHP DEVELOPER Work Phone: [facility] 01-04-1985 measles, mumps and rubella virus vaccine Trina [place] SALT OPERATOR.FULL STACK PHP DEVELOPER Work Phone: [facility] 08-12-1977 diphtheria, tetanus toxoids and acellular pertussis vaccine Trina [place] SALT OPERATOR.FULL STACK PHP DEVELOPER Work Phone: [facility] 08-12-1977 trivalent poliovirus vaccine, live, oral Trina [place] SALT OPERATOR.FULL STACK PHP DEVELOPER Work Phone: [facility] 12-16-1974 diphtheria, tetanus toxoids and acellular pertussis vaccine Trina Job SALT OPERATOR.FULL STACK PHP DEVELOPER Work Phone: [facility] 12-16-1974 trivalent poliovirus vaccine, live, oral Trina Job SALT OPERATOR.FULL STACK PHP DEVELOPER Work Phone: [facility] 12-16-1974 tuberculin skin test ; purified protein derivative solution, intradermal [facility] 01-05-1974 measles, mumps and rubella virus vaccine Trina Job SALT OPERATOR.FULL STACK PHP DEVELOPER Work Phone: [facility] 04-17-1973 diphtheria, tetanus toxoids and acellular pertussis vaccine Trina [place] SALT OPERATOR.FULL STACK PHP DEVELOPER Work Phone: [facility] 04-17-1973 trivalent poliovirus vaccine, live, oral Trina Job SALT OPERATOR.FULL STACK PHP DEVELOPER Work Phone: [facility] 03-06-1973 diphtheria, tetanus toxoids and acellular pertussis vaccine Trina Job SALT OPERATOR.FULL STACK PHP DEVELOPER Work Phone: [facility] 03-06-1973 trivalent poliovirus vaccine, live, oral Trina Job SALT OPERATOR.FULL STACK PHP DEVELOPER Work Phone: [facility] 01-23-1973 diphtheria, tetanus toxoids and acellular pertussis vaccine Trina Job SALT OPERATOR.FULL STACK PHP DEVELOPER Work Phone: [facility] 01-23-1973 trivalent poliovirus vaccine, live, oral Trina [place] SALT OPERATOR.FULL STACK PHP DEVELOPER Work Phone: [facility] Payers Date Payer Category Payer Unknown [id number] 2019 Unknown [id number] Social History Date Type Detail Facility Start: 02-12-2011 End: 01-27-2023 Tobacco smoking status NHIS Never smoked tobacco [facility] Start: 02-12-2011 End: 01-27-2023 Tobacco use and exposure Smokeless tobacco non-user [facility] Start: 01-25-2022 End: 01-27-2023 Alcohol intake Current non-drinker of alcohol (finding) [facility] Start: 12-28-2019 History SDOH Social Connections Phone 5 [facility] Start: 12-28-2019 History SDOH Social Connections Get Together 3 [facility] Start: 12-28-2019 History SDOH Social Connections Membership 1 [facility] Start: 12-28-2019 History SDOH Physica l Activity DPW 4 [facility] Start: 12-28-2019 History SDOH Physica l Activity MPS 6 [facility] Start: 12-28-2019 History SDOH Stress 2 [facility] Start: 12-28-2019 Education 18 [facility] Start: 1970 Sex Assigned At Not on file [facility] Start: 12-21-2021 End: 02-13-2022 Exposure to SARS-CoV-2 (event) Not sure [facility] Start: 12-28-2019 End: 01-21-2024 History of Social function [facility] Work Phone: Start: 12-28-2019 End: 01-21-2024 Social connection and isolation panel [facility] Work Phone: Do you belong to any clubs or organizations such as congregational groups, unions, fraternal or athletic groups, or school groups? Yes [facility] Work Phone: Are you now , , , , never or living with a partner? [facility] Work Phone: How hard is it for y ou to pay for the very basics like food, housing, medical care, and heating Not hard at all [facility] Work Phone: Do you feel stress - tense, restless, nervous, or anxious, or unable to sleep at night because your mind is troubled all the time - these days [OSQ] Only a little [facility] Work Phone: (I/We) worried wheth er (my/our) food would run out before (I/we) got money to buy more. Never true [facility] Work Phone: NEGATED: Highlighted rowStart: DEMARIO History of tobacco use Passive smoker [facility] Work Phone: Clinical Notes 11-24-2008 to 01-21-2024 Latricia Azul Mammo Tech - 01/21/2024 7:10 AM EDTTelephone Encounter - Trina Kaiser APRN.CNP - 03/10/2023 3:25 PM ESTTelephone Encounter - Katherine Thomas RN - 03/10/2023 2:27 PM EST Note Date & Type Note Facility 01-21-2024 History of Presen t illness Narrative Radiology Service Progress Note PATIENT NAME: Maxine Zuniga DATE OF SERVICE: January 21, 2024 TIME: 7:10 AM PATIENT IDENTITY VERIFICATION COMPLETED USING TWO (2) IDENTIFIERS: Name and Date of confirmed by patient verbally. FALL SCREENING: Has the patient had 2 falls in the last year or 1 fall with injury or currently using an Ambulatory Assistive Device (Walker, Cane, Wheelchair, Crutches, etc.)? No PATIENT GENDER DATA: Female. status: : No status: NO. PATIENT RELEVANT IMPLANT DATA REVIEWED: Not Applicable PATIENT PRESENTS WITH AN IMPLANTABLE OR ATTACHED RIGGING UP MAN: No RADIOLOGY DEPARTMENT: Mammography PERIPHERAL IV DATA: Not applicable SIGNED BY: Shalini Petito Maribel January 21, 2024 7:10 AM documented in this encounter [facility] 01-21-2024 Note HNO ID: [id number] Author: LATRICIA AZUL Mammo Tech Service: ? Author Type: Form Drafter Type: Progress Notes Filed: 01/21/2024 07:44 Note Text: Radiology Service Progress Note PATIENT NAME: Maxine Zuniga DATE OF SERVICE: January 21, 2024 TIME: 7:10 AM PATIENT IDENTITY VERIFICATION COMPLETED USING TWO (2) IDENTIFIERS: Name and Date of confirmed by patient verbally. FALL SCREENING: Has the patient had 2 falls in the last year or 1 fall with injury or currently using an Ambulatory Assistive Device (Walker, Cane, Wheelchair, Crutches, etc.)? No PATIENT GENDER DATA: Female. status: : No status: NO. PATIENT RELEVANT IMPLANT DATA REVIEWED: Not Applicable PATIENT PRESENTS WITH AN IMPLANTABLE OR ATTACHED RIGGING UP MAN: No RADIOLOGY DEPARTMENT: Mammography PERIPHERAL IV DATA: Not applicable SIGNED BY: Johanna Petit January 21, 2024 7:10 AM [facility] 03-10-2023 Miscellaneous Notes Rx sent. Trina Kaiser [...] in regards to her UTIs. Trina Kaiser APRN.KRISTIE Patient asking if RM could place an order to check her estrogen level. Patient has frequent UTIs. She's had two in the last two months. Typically seen in ER because they get to be so painful. Patient heard that estrogen level could contribute. Are you willing to place the lab order? Lorraine Avila RN documented in this encounter [facility] 01-27-2023 Note HNO ID: [id number] Author: Trina Kaiser APRN.CNP Service: ? 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 Zuniga, We are pleased to [...] report will be kept on file at [facility] as part of your permanent medical record and are available for your continuing care. Thank you for allowing us to help in meeting your health care needs. Sincerely, Dr. Lundberg Interpreting Radiologist [facility] (Normal over 40) documented in this encounter [facility] 01-15-2023 History of Presen t illness [...] PERIPHERAL IV DATA: Not applicable SIGNED BY: Cecilia Her Shaker Maribel January 15, 2023 7:31 AM documented in this encounter [facility] 05-08-2022 Nurse Note Pt more awake. at bedside. Given snack and drink. Kami Bahena RN Pt received in PACU. Pt extremely drowsy, but arouses slightly. Appears comfortable. Abd soft and non distended. Kami Bahena RN documented in this encounter [facility] 05-08-2022 History and physical note UPDATED PROCEDURAL [...] Maxine Zuniga 1970 REFERRING PHYSICIAN: Trina Kaiser APRN.FULL STACK PHP DEVELOPER CHIEF COMPLAINT: Consult (colonoscopy) HPI: The patient [...] and reviewed by me Nursing Notes: Nelda MeehanllFIORELLA 02/13/2022 4:10 PM Signed REVIEW OF SYSTEMS: [...] Maxine Zuniga 1970 REFERRING PHYSICIAN: Trina Kaiser APRN.CNP CHIEF COMPLAINT: Consult (colonoscopy) HPI: The patient [...] entered by the nurse and reviewed by sd Nursing Notes: Nelda Hobson LPN 02/13/2022 4:10 [...] Stephany Bravo MD documented in this encounter [facility] 02-13-2022 History of Presen t illness Narrative HISTORY AND PHYSICAL Maxine Mosquera Efrain 1970 REFERRING PHYSICIAN: Trina Kaiser APRN.FULL STACK PHP DEVELOPER CHIEF COMPLAINT: Consult (colonoscopy) HPI: The patient [...] patient was offered a surgery/procedure at a [facility]. The provider and patient have discussed in [...] patient will be scheduled for colonoscopy at [facility] Medical Decision Making: Risk: Low: Low risk from testing/treatment Medical Decision Making Level: 2 - Straightforward Stephany Bravo MD documented in this encounter [facility] 02-13-2022 Instructions Stephany Bravo MD - 02/13/2022 [...] If you do not have a responsible residential recycle driver (family member or friend) with you [...] exam. 2 03/2019 documented in this encounter [facility] 02-13-2022 Nurse Note REVIEW OF SYSTEMS: General: [...] Nelda Hobson LPN documented in this encounter [facility] 01-25-2022 History of Presen t illness Narrative Human Services Professional offered: Patient declines. 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 History LMP: 12/14/2020, Having periods Age at Menarche: Age at First : Age at Menopause: 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 History Comments: Sexual Activity: Yes; Male [...] external genitalia normal, normal Bartholin's glands, urethra, [place]'s glands, no vulvar lesions, no cervical lesions, [...] 5) culture done for vaginal odor Trina Job, SALT OPERATOR.FULL STACK PHP DEVELOPER documented in this encounter [facility] 11-24-2008 History of Past i llness Narrative Problem Noted Date Resolved Date Other and unspecified ovarian cyst 11/24/2008 02/12/2011 Excessive or frequent menstruation 03/09/2008 08/22/2015 Placenta previa without hemorrhage, antepartum 0 09/19/2006 10/14/2006 SUPRF HIGH RISK NEC [V23.89] 7 12/11/2006 Supervision of other normal 04/25/2006 03/09/2008 documented as of this encounter (statuses as of 01/25/2022) [facility] History of Past illness Narrative* Problem Noted Date Resolved Date Other and unspecified ovarian cyst 11/24/2008 02/12/2011 Excessive or frequent menstruation 03/09/2008 08/22/2015 Placenta previa without hemorrhage, antepartum 0 09/19/2006 10/14/2006 SUPRF HIGH RISK NEC [V23.89] 7 12/11/2006 Supervision of other normal 04/25/2006 03/09/2008 documented as of this encounter (statuses as of 02/16/2022) [facility] History of Past illness Narrative* Problem Noted Date Diagnosed Date Resolved Date Other and unspecified ovarian cyst 11/24/2008 02/12/2011 Excessive or frequent menstruation 03/09/2008 08/22/2015 Placenta previa without hemo rrhage, antepartum 09/19/2006 10/14/2006 SUPRF HIGH RISK NEC [V23.89] 05/15/2006 12/11/2006 Supervision of other normal 04/25/2006 03/09/2008 documented as of this encounter (statuses as of 01/18/2023) [facility] History of Past illness Narrative* Problem Noted Date Diagnosed Date Resolved Date Other and unspecified ovarian cyst 11/24/2008 02/12/2011 Excessive or frequent menstruation 03/09/2008 08/22/2015 Placenta previa without hemo rrhage, antepartum 09/19/2006 10/14/2006 SUPRF HIGH RISK NEC [V23.89] 05/15/2006 12/11/2006 Supervision of other normal 04/25/2006 03/09/2008 documented as of this encounter (statuses as of 01/27/2023) [place] [address]-13-2009 History of Past illness Narrative* Problem Noted Date Diagnosed Date Resolved Date Other and unspecified ovarian cyst 11/24/2008 02/12/2011 Excessive or frequent menstruation 03/09/2008 08/22/2015 Placenta previa without hemo rrhage, antepartum 09/19/2006 10/14/2006 SUPRF HIGH RISK NEC [V23.89] 05/15/2006 12/11/2006 Supervision of other normal 04/25/2006 03/09/2008 documented as of this encounter (statuses as of 02/16/2023) [place] [address]-13-2009 History of Past illness Narrative* Problem Noted Date Diagnosed Date Resolved Date Other and unspecified ovarian cyst 11/24/2008 02/12/2011 Excessive or frequent menstruation 03/09/2008 08/22/2015 Placenta previa without hemo rrhage, antepartum 09/19/2006 10/14/2006 SUPRF HIGH RISK NEC [V23.89] 05/15/2006 12/11/2006 Supervision of other normal 04/25/2006 03/09/2008 documented as of this encounter (statuses as of 02/16/2023) [place] [address]-13-2009 History of Past illness Narrative* Problem Noted Date Diagnosed Date Resolved Date Other and unspecified ovarian cyst 11/24/2008 02/12/2011 Excessive or frequent menstruation 03/09/2008 08/22/2015 Placenta previa without hemo rrhage, antepartum 09/19/2006 10/14/2006 SUPRF HIGH RISK NEC [V23.89] 05/15/2006 12/11/2006 Supervision of other normal 04/25/2006 03/09/2008 documented as of this encounter (statuses as of 03/11/2023) [facility] Encounter for gynecological examination (general) (routine) without abnormal findings- Primary Encounter for screening mammogram for breast cancer Vaginal odor Unspecified symptom associated with female genital organs Encounter for screening for malignant neoplasm of colon Special screening for malignant neoplasms, colon [facility] Diagnosis Encounter for screening for malignant neoplasm of colon Special screening for malignant neoplasms, colon documented in this encounter [facility] note* Diagnosis Encounter for gynecological examination (general) (routine) without abnormal findings- Primary Encounter for screening mammogram for breast cancer Dense breast tissue documented in this encounter [facility] note* Diagnosis Screening for colon cancer- Primary Special screening for malignant neoplasms, colon Encounter for screening for malignant neoplasm of colon Special screening for malignant neoplasms, colon documented in this encounter [facility] note* Diagnosis Encounter for screening mammogram for breast cancer documented in this encounter [facility] note* Diagnosis Encounter for screening mammogram for breast cancer Dense breast tissue documented in this encounter [facility] for referral (narrative)* Outpatient Procedure (Routine) - Pending Review Specialty Diagnoses / Procedures Referred By Magdalena levy Referred To Contact [facility] Diagnoses Encounter for screening for malignant neoplasm of colon Procedures COLONOSCOPY SCREENING COLONOSCOPY FLX DX W/COLLJ SPEC WHEN Stephany Sweeney MD [address] [place] [address] [facility] [address] [place] [address] Referral ID Status Reason Start Date Expiration Date Visits Requested Visits Authorized [id number] Pending Review Auto-Generat ed Referral 02/13/2022 02/13/2023 1 1 [facility] for referral (narrative)* Diagnostic Procedure Only (Routine) - Pending Review Specialty Diagnoses / Procedures Referred By Magdalena levy Referred To Contact [facility] Diagnoses Encounter for screening mammogram for breast cancer Dense breast tissue Procedures PAULETTE SCREENING W EVERETTE SCREENING DIGITAL BREAST TOMOSYNTHESIS BI SCREENING MAMMOGRAPHY BI 2-VIEW BREAST INC Trina Tyson APRN.KRISTIE [address] [place] [address] [facility] [address] [place] [address] Referral ID Status Reason Start Date Expiration Date Visits Requested Visits Authorized [id number] Pending Review Auto-Generat ed Referral 3 02/26/2024 1 1 [facility] for referral (narrative)* Outpatient Procedure (Routine) - Closed Specialty Diagnoses / Procedures Referred By Contac t Referred To Contact [facility] Diagnoses Encounter for screening for malignant neoplasm of colon Procedures COLONOSCOPY SCREENING COLONOSCOPY FLX DX W/COLLJ SPEC WHEN Stephany Sweeney MD [address] [place] [address] [facility] [address] [place] [address] Referral ID Status Reason Start Date Expiration Date V isits Requested Visits Authorized [id number] Closed Auto-Generate d Referral 02/13/2022 02/13/2023 1 1 [facility] for referral (narrative)* Diagnostic Procedure Only (Routine) - Closed Specialty Diagnoses / Procedures Referred By Contac t Referred To Contact [facility] Diagnoses Encounter for screening mammogram for breast cancer Procedures PAULETTE SCREENING SCREENING MAMMOGRAPHY BI 2-VIEW BREAST INC CAD Trina Kaiser APRN.FULL STACK PHP DEVELOPER [address] [place] [address] [facility] [address] [place] [address] Referral ID Status Reason Start Date Expiration Date V isits Requested Visits Authorized [id number] Closed Auto-Generate d Referral 01/25/2022 02/24/2023 1 1 [facility] for referral (narrative)* Diagnostic Procedure Only (Routine) - Closed Specialty Diagnoses / Procedures Referred By Contac t Referred To Contact [facility] Diagnoses Encounter for screening mammogram for breast cancer Dense breast tissue Procedures PAULETTE SCREENING W EVERETTE SCREENING DIGITAL BREAST TOMOSYNTHESIS BI SCREENING MAMMOGRAPHY BI 2-VIEW BREAST INC CAD Trina Kaiser APRN.CNP [address] [place] [address] [facility] [address] [place] [address] Referral ID Status Reason Start Date Expiration Date V isits Requested Visits Authorized [id number] Closed Auto-Generate d Referral 01/27/2023 02/26/2024 1 1 [facility] for visit Narrative* Outpatient Procedure (Routine) - Closed Specialty Diagnoses / Procedures Referred By Contac t Referred To Contact [facility] Diagnoses Encounter for screening for malignant neoplasm of colon Procedures COLONOSCOPY SCREENING COLONOSCOPY FLX DX W/COLLJ SPEC WHEN Stephany Sweeney MD [address] [place] [address] [facility] [address] [place] [address] Referral ID Status Reason Start Date Expiration Date V isits Requested Visits Authorized [id number] Closed Auto-Generate d Referral 02/13/2022 02/13/2023 1 1 [facility] for visit Narrative* Diagnostic Procedure Only (Routine) - Closed Specialty Diagnoses / Procedures Referred By Contac t Referred To Contact [facility] Diagnoses Encounter for screening mammogram for breast cancer Procedures PAULETTE SCREENING SCREENING MAMMOGRAPHY BI 2-VIEW BREAST INC CAD Trina Kaiser APRN.FULL STACK PHP DEVELOPER [address] [place] [address] [facility] [address] [place] [address] Referral ID Status Reason Start Date Expiration Date V isits Requested Visits Authorized [id number] Closed Auto-Generate d Referral 01/25/2022 02/24/2023 1 1 [facility] for visit Narrative* Diagnostic Procedure Only (Routine) - Closed Specialty Diagnoses / Procedures Referred By Contmercy t Referred To Contact [facility] Diagnoses Encounter for screening mammogram for breast cancer Dense breast tissue Procedures PAULETTE SCREENING W EVERETTE SCREENING DIGITAL BREAST TOMOSYNTHESIS BI SCREENING MAMMOGRAPHY BI 2-VIEW BREAST INC CAD Trina Kaiser APRN.FULL STACK PHP DEVELOPER [address] [place] [address] [facility] [address] [place] [address] Referral ID Status Reason Start Date Expiration Date V isits Requested Visits Authorized [id number] Closed Auto-Generate d Referral 01/27/2023 02/26/2024 1 1 [facility] Reason for Referral Specialty Diagnoses / Procedures Referred By Magdalena levy Referred To Contact General Surgery Diagnoses Encounter for screening for malignant neoplasm of colon Procedures CONSULT TO GENERAL SURGERY OFFICE/OUTPATIENT NEW HIGH MDM 60-74 MINUTES Trina Kaiser APRN.FULL STACK PHP DEVELOPER [address] [place] [address] Referral ID Status Reason Start Date Expiration Date Visits Requested Visits Authorized [id number] Authorized PCP Requested Referral 2 01/25/2023 1 1 Specialty Diagnoses / Procedures Referred By Magdalena levy Referred To Contact [facility] Diagnoses Encounter for screening mammogram for breast cancer Procedures PAULETTE SCREENING SCREENING MAMMOGRAPHY BI 2-VIEW BREAST INC CAD Trina Kaiser, ARISTEO.FULL STACK PHP DEVELOPER [address] [place] [address] [facility] [address] [place] [address] Referral ID Status Reason Start Date Expiration Date Visits Requested Visits Authorized [id number] Pending Review Auto-Generat ed Referral 2 02/24/2023 [...] Given 05/08/2022 8:54 AM EST 50 mcg Given 05/08/2022 8:43 AM EST 50 mcg lactated ringers 1,000 mL iv bolus 1,000 mL, INTRAVENOUS, at 2,000 mL/hr, Administer over 0.5 Hours, ONCE, 1 dose, On Fri05/08/22 at 0900, Preprocedure New Bag/Syringe/Bottle 05/08/2022 8:00 AM EST 1,000 mL 2000 mL/hr lactated ringers iv infusion 75 mL/hr, INTRAVENOUS, CONTINUOUS, Starting on Fri05/08/22 at 0800, Until Fri05/08/22 at 0923, Preprocedure Rate/Dose Change 05/08/2022 8:00 AM EST 75 mL/hr 75 mL/hr New Bag/Syringe/Bottle 05/08/2022 7:45 AM EST 75 mL/hr 7 5 mL/hr midazolam 1-5 mg injection (VERSED) 1-5 mg, INTRAVENOUS, DIRECTED, Starting on Fri05/08/22 at 0900, Until Fri05/08/22 at 1259, DOSING DIRECTED BY PHYSICIAN FOR PROCEDURAL SEDATION ONLY, Intraprocedure Given 05/08/2022 9:00 AM EST 2 mg Given 05/08/2022 8:54 AM EST 2 mg Given 05/08/2022 8:49 AM EST 2 mg Summary Purpose Family History No Family History [...] or prosecute any alcohol or drug abuse patient.[facility] the event this information is protected by the Federal Confidentiality of Alcohol and Drug Abuse Patient Records regulations: The Federal rules restrict any use of the information to criminally investigate or prosecute any alcohol or drug abuse patient.[facility] the event this information is protected by the Federal Confidentiality of Alcohol and Drug Abuse Patient Records regulations: The Federal rules restrict any use of the information to criminally investigate or prosecute any alcohol or drug abuse patient.[facility] the event this information is protected by the Federal Confidentiality of Alcohol and Drug Abuse Patient Records regulations: The Federal rules restrict any use of the information to criminally investigate or prosecute any alcohol or drug abuse patient.[facility] the event this information is protected by the Federal Confidentiality of Alcohol and Drug Abuse Patient Records regulations: The Federal rules restrict any use of the information to criminally investigate or prosecute any alcohol or drug abuse patient.[facility] the event this information is protected by the Federal Confidentiality of Alcohol and Drug Abuse Patient Records regulations: The Federal rules restrict any use of the information to criminally investigate or prosecute any alcohol or drug abuse patient.[facility] the event this information is protected by the Federal Confidentiality of Alcohol and Drug Abuse Patient Records regulations: The Federal rules restrict any use of the information to criminally investigate or prosecute any alcohol or drug abuse patient.[facility] the event this information is protected by the Federal Confidentiality of Alcohol and Drug Abuse Patient Records regulations: The Federal rules restrict any use of the information to criminally investigate or prosecute any alcohol or drug abuse patient.[facility] Reason for Visit (unrecogniz ed section and content) Reason Comments Well Woman Reason Comments Consult colonoscopy Specialty Diagnoses / Procedures Referred By Magdalena levy Referred To Contact General Surgery Diagnoses Encounter for screening for malignant neoplasm of colon Procedures CONSULT TO GENERAL SURGERY OFFICE/OUTPATIENT [facility] 60-74 MINUTES Trina Kaiser, ARISTEO.K[address] [place] [address] Referral ID Status Reason Start Date Expiration Date V isits Requested Visits Authorized [id number] Closed PCP Requested Referral 01/25/2022 01/25/2023 1 1 Reason Comments Yearly Exam Reason Comments Patient Question Care Teams (unrecognized sec tion and content) Cracker Off Relationship Specialty Start Date End Date Ann Marie Berry MD [address] [place] [address] PCP - General Family Medicine 04/26/18 Cracker Off Relationship Specialty Start Date End Date Ann Marie Berry MD [address] [place] [address] PCP - General Family Medicine 04/26/18 Cracker Off Relationship Specialty Start Date End Date Ann Marie Berry MD [address] [place] [address] PCP - General Family Medicine 04/26/18 Cracker Off Relationship Specialty Start Date End Date Ann Marie Berry MD [address] [place] [address] PCP - General Family Medicine 04/26/18 Cracker Off Relationship Specialty Start Date End Date Ann Marie Berry MD [address] [place] [address] PCP - General Family Medicine 04/26/18 Cracker Off Relationship Specialty Start Date End Date Ann Marie Berry MD [address] [place] [address] PCP - General Family Medicine 04/26/18 Cracker Off Relationship Specialty Start Date End Date Ann Marie Berry MD [address] [place] [address] PCP - General Family Medicine 04/26/18 Cracker Off Relationship Specialty Start Date End Date Ann Marie Berry MD [address] [place] [address] PCP - General Family Medicine 04/26/18 INFORMATION SOURCE (unrecogn ized section and content) DATE CREATED AUTHOR 01/22/2024 [facility] FOR RECORDS PERTAINING TO PATIENTS WHO ARE [...] BE BASED ON THE PRIMARY CLINICAL RECORDS. [facility] [employer] provides no warranty or guarantee of the accuracy or completeness of information in this document.
== END | disposition home or self-care (01) ==
PROVIDERS: PCP Nurse Practitioner Family; Referring Provider Physician Assistant; Visit Provider Physician Assistant
DX: R05.9 Cough, unspecified (principal)
CPT/HCPCS: 71046

== ENCOUNTER 2024-08-04 12:52 | Observation (INO) | payer OTHER, SELFPAY ==
[2024-08-04] VITALS (11 sets, daily range): BP systolic 111–145; BP diastolic 58–98; PULSE 61–80; RESP 11–18; TEMP 36.8–36.9; O2SAT 95–100; BMI 20.1; BMI 20.5
--- NOTE | 2024-08-04 12:55 | ED.RN ---
Symptoms discussed with ED MDs during triage, no stroke alert called per MDs
--- NOTE | 2024-08-04 13:11 | CT_ITS ---
PROCEDURE: CTA HEAD AND NECK W/ CONTRAST 08/04/2024 REASON FOR EXAM: PARAESTHESIAS LEFT FACE AND LEFT HAND TECHNIQUE: CTA imaging of the head and neck from the aortic arch to the skull vertex with out constrast and with intravenous contrast. Coronal and Sagittal reconstruction series were provided. 3D post processing with reformations, Maximum intensity projection (MIPs) Volume rendering and Shaded surface rendering was provided. CONTRAST: Isovue 370 VOLUME: 100 mL One or more dose reduction techniques were used (e.g., Automated exposure control, adjustment of the mA and/or kV according to patient size, use of iterative reconstruction technique). RADIATION DOSE SUMMARY: CTDlvol: 70 mGy DLP: 1300 mGycm COMPARISON: Same-day CT head. FINDINGS: See same day noncontrast CT head for discussion of nonvascular findings. Widely patent three-vessel aortic arch. The bilateral vertebral arteries are widely patent and codominant without focal stenosis or occlusion. No calcific plaque of the bilateral cervical carotid arteries. No focal narrowing by NASCET criteria. The bilateral anterior, middle and posterior cerebral arteries are widely patent. 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 No arteriovenous malformation or aneurysm. Major venous structures: Unremarkable. Other findings: Cervical spondylosis. Opacification of several left ethmoid air cells. Biapical emphysema/scarring. Patulous upper esophagus. CT/CTA Head AND Neck W/ Contrast IMPRESSION: 1. No large vessel occlusion, AVM or aneurysm. 2. No focal narrowing by NASCET criteria. 3. Biapical emphysema/scarring. Reading Location: [facility]
--- NOTE | 2024-08-04 13:11 | EDS_ITS ---
HPI History of Present Illness Chief Complaint: Neuro S/Sx Detail of Chief Complaint: Paresthesias left face and left hand Informant: patient Narrative Narrative: Patient presents the emergency department complaint paresthesias to her left face and left hand. She noticed the symptoms this morning at 8:30 AM when she went to work. Patient states that she has had multiple episodes like this in the past that usually resolve after a few hours. Typically she does not have a headache with this. She recalls an episode 8 to 10 months ago where she had similar episodes but in her right hand and had a hard time writing her name for about a week due to difficulty with coordination. She denies vision changes. She denies weakness of the extremities. She denies difficulty with speech. She called her primary care physician's office today and was advised to come to the emergency department. On arrival her symptoms are mostly resolved and just has minimal residual numbness to the left side of her face. [facility] Medical History (Updated 08/04/24 @ 15:[address] Georgie Mcknight, DO) Acute bronchitis, unspecified Wears glasses Wears contact lenses UTI (urinary tract infection) High cholesterol Pain Blackout Non-smoker History of echocardiogram Cardiology follow-up encounter History of irregular heartbeat Acute maxillary sinusitis, unspecified Home Medications ?Medication ?Instructions ?Recorded ?Last Taken ?Type Lactobacillus acidophilus 250 500 mmu cells PO DAILY 0 05/20/23 08/04/24 History million cell capsule (Probiotic Acidophilus) d-mannose 500 mg capsule (AZO 1,000 mg PO DAILY 08/04/24 History D-Mannose) estradiol 0.01% (0.1 mg/gram) 1 appful vaginal MOWEFR 05/20/23 Unknown History vaginal cream multivitamin-ferrous 2 tab PO DAILY 05/20/2307/14 History fumarate-folic acid 18 mg-400 mcg tablet (One Daily Multivitamin with Iron (folic acid)) trimethoprim 100 mg tablet 100 mg PO QHS PRN UTI 05/2007/31/24 History ascorbic acid (vitamin C) 500 mg 500 mg PO DAILY 08/04 Unknown History tablet (C-500) calcium carbonate (Calcium 600) 1,200 mg PO DAILY 07/1408/04/24 History Allergy/AdvReac Type Severity Reaction Status Date / Time No Known Allergies Allergy Verified 08/04/24 12:55 Family History Other Heart disease Surgical History Hx of wisdom tooth extraction Hx of colonoscopy Social History (Updated 08/04/24 @ 15:00 by Yun Fox) household members: spouse Smoking Status: Never smoker ROS ROS ED Review of Systems ROS Unobtainable: other Constitutional Constitutional ED: Reports lethargy; Denies chills, fever(s), sweats or weight loss Eyes Eyes: Denies blurry vision, change in vision or diplopia ENT ENT ED: Denies rhinorrhea or sore throat Cardiovascular Cardiovascular: Denies chest pain, orthopnea or racing heartbeat Respiratory/Chest Respiratory/Chest: Denies cough, dyspnea, dyspnea on exertion, orthopnea or sputum Gastrointestinal Gastrointestinal: Denies abdominal pain, diarrhea, nausea or vomiting Genitourinary Genitourinary ED: Denies dysuria, hematuria or urinary frequency Musculoskeletal Musculoskeletal: Denies arthralgias, back pain, myalgias or neck pain Integumentary Denies abscess, Abrasions or rash Neurologic Neurologic: Reports paresthesias; Denies headache(s) or weakness Psychiatric Psychiatric: Denies anxiety, depression or suicidal thoughts Endocrine Endocrinology: Denies polydipsia, polyphagia or polyuria Hematologic/Lymphatic Hematologic/Lymphatic: Denies easy bleeding, easy bruising or lymphadenopathy Allergic/Immunologic Allergic/Immunologic ED: Denies mouth swelling, tongue swelling or urticaria EXAM Physical Exam Const Vital Signs: 08/04/24 12:52 08/04/24 13:10 08/04/24 13:52 Temperature 98.2 F Temperature Source Oral Pulse Rate 78 73 Respiratory Rate 18 15 Blood Pressure 124/98 H Blood Pressure Mean 106 Pulse Ox 99 98 Oxygen Delivery Method Room Air Room Air Room Air 08/04/24 14:00 08/04/24 15:00 Temperature Temperature Source Pulse Rate 80 80 Respiratory Rate 16 15 Blood Pressure 145/78 H 141/78 H Blood Pressure Mean 100 99 Pulse Ox 100 99 Oxygen Delivery Method Positive well nourished and well developed General Appearance ED: well developed and NAD HEENT Reports TM's clear and moist mucous membranes normocephalic and atraumatic; Negative for trauma or tenderness Tympanic Membrane ED: Yes TM's clear Eyes PERRL and EOMs intact bilaterally General Eye ED: Negative for pale conjunctiva or scleral icterus Neck no lymphadenopathy, supple and no JVD General: Negative for tenderness Chest Wall inspection of chest normal and palpation of chest normal Chest: Negative for tenderness Resp normal respiratory effort and clear to auscultation bilaterally Effort and Inspection: Negative for respiratory distress or pain with movement Auscultation: Negative for rhonchi, wheezes or diminished lung sounds Cardio regular rate, regular rhythm, S1 normal heart sound, S2 normal heart sound and no murmurs Peripheral Pulses: pulses 2+ throughout GI normal to inspection, nondistended, normoactive bowel sounds, soft to palpation, non-tender, non-distended and no masses Back/Spine no CVA tenderness and no thoracic nor lumbar tenderness Extremity normal to inspection General Extremety ED: Negative for edema General Extremity: Negative for edema Neuro oriented x3, CN's II-XII intact bilaterally, no sensory deficits noted and gait normal Neuro Narrative: No focal deficits on exam. There is no facial droop. NIH stroke scale is 0. Finger-nose and heel martinez testing within normal limits, negative Romberg. Sensorium / Orientation: awake, alert, oriented to person, oriented to place and oriented to time Motor Exam: strength 5/5 throughout and strength abnormal Psych mental status grossly normal Skin no rashes or lesions noted and no wounds MDM MDM MDM Narrative Medical decision making narrative: Patient presents with history of paresthesias. Symptoms currently mostly resolved. Patient is not a thrombolytic candidate as symptoms began at 8:30 AM and I am seeing her at 1303. Will obtain CT brain as well as CTA of head and neck and basic labs to evaluate further. In the differential would be stroke versus TIA versus MS versus brain tumor or migraine. CBC with differential showed a white count of 3.7 with hemoglobin 14 and platelet count 256. Chemistries unremarkable. Troponin normal less than 6. CT scan of the brain without contrast unremarkable and CTA head and neck were negative for occlusions or dissection or aneurysm. At this point etiology of symptoms unclear. In the differential would be TIA versus migraine versus MS or other intracranial abnormality. Will admit to hospitalist for further imaging such as MRI. Will likely require evaluation follow-up with neurology. Lab Data Attestation: I reviewed the patient's lab results. Labs: Laboratory Results - last 24 hr 08/04/24 13:37 WBC 3.7 L RBC 4.69 Hgb 14.0 Hct 42.5 MCV 90.6 MCH 29.9 MCHC 32.9 RDW Std Deviation 40.1 RDW Coeff of Rae 12.2 Plt Count 256 MPV 10.0 Immature Gran % (Auto) 0.000 Neut % (Auto) 38.5 L Lymph % (Auto) 49.2 H Jefferson % (Auto) 10.1 H Eos % (Auto) 1.4 Baso % (Auto) 0.8 Absolute Neuts (auto) 1.4 L Absolute Lymphs (auto) 1.80 Nucleated RBC % 0 PT 12.9 INR 1.0 APTT 28.8 Sodium 141 Potassium 4.0 Chloride 103 Carbon Dioxide 28.0 Anion Gap 10 BUN 16 Creatinine 0.95 Estim Creat Clear Calc 68.35 Est GFR (MDRD) Non-Af 72 BUN/Creatinine Ratio 16.6 Glucose 93 Calcium 9.9 Troponin T High Sens < 6 Radiography Diagnostic Testing: Clinical Impression(s) from Imaging Studies Head/Neck CTA 08/04/24 13:11 IMPRESSION: 1. No large vessel occlusion, AVM or aneurysm. 2. No focal narrowing by NASCET criteria. 3. Biapical emphysema/scarring. Reading Location: [facility] Brain CT 08/04/24 13:40 IMPRESSION: NORMAL NONCONTRAST HEAD CT. Red Alert: Nothing Acute The critical information above was relayed directly by me by telephone to Georgie Mcknight on 08/04/2024 at 2:04 pm with readback verification. Reading Location: [facility] EKG Initial EKG: Attestation: I personally reviewed and interpreted this EKG as follows: Comments: Sinus rhythm with rate of 63 bpm with no acute ST segment changes Discharge Plan Triage Chief Complaint: Neuro S/Sx ED Provider: Georgie Mcknight Dx/Rx/DC Orders Clinical Impression: Paresthesias, Brain TIA Prescriptions: No Action estradiol 0.01 % (0.1 mg/gram) cream 1 appful VAGINAL MOWEFR Patient Comments: DOES ONCE A WEEK ON FRIDAY trimethoprim 100 mg tablet 100 mg PO QHS PRN (Reason: UTI) Patient Comments: take 1 tablet by mouth at bedtime One Daily Multivit-Iron(folic) 18-400 mg-mcg tablet 2 tab PO DAILY AZO D-Mannose 500 mg capsule 1,000 mg PO DAILY Probiotic Acidophilus 250 million cell capsule 500 mmu cells PO DAILY ascorbic acid (vitamin C) [C-500] 500 mg tablet 500 mg PO DAILY calcium carbonate [Calcium 600] 600 mg calcium (1,500 mg) tablet 1,200 mg PO DAILY Primary Care Provider: Bia Carranza Referrals: Bia Carranza, [facility] PT-C [Primary Care Provider] - Print Language: Ghanaian Disposition Disposition: Acute Care Hospital [facility]
--- NOTE | 2024-08-04 13:40 | CT_ITS ---
PROCEDURE: STROKE BRAIN/HEAD WITHOUT CONT 08/04/2024 REASON FOR EXAM: NEURO DEFICIT, ACUTE, STROKE SUSPECTED TECHNIQUE: Head CT without intravenous contrast. Coronal and Sagittal reconstruction series were provided. One or more dose reduction techniques were used (e.g., Automated exposure control, adjustment of the mA and/or kV according to patient size, use of iterative reconstruction technique. RADIATION DOSE SUMMARY: CTDlvol: 44.99 mGy DLP: 812.98 mGycm COMPARISON: No priors available. FINDINGS: Brain: Normal CSF Spaces: Normal Sinuses/Mastoids: Clear at visualized levels Bones: No abnormality is seen. CT/STROKE Brain/Head without Cont IMPRESSION: NORMAL NONCONTRAST HEAD CT. Red Alert: Nothing Acute The critical information above was relayed directly by me by telephone to Georgie Mcknight on 08/04/2024 at 2:04 pm with readback verification. Reading Location: [place] [address]
[2024-08-04 13:42] LABS: Absolute Neutrophil Count 1.4 X10^3/uL (2.0-7.7); Basophil# 0.03 X10^3/uL; Basophil% 0.8 % (0-1); Eosinophil# 0.05 X10^3/uL; Eosinophils% 1.4 % (0-5); Hematocrit 42.5 % (37-47); Lymphocyte % 49.2 % (19-41); Mean Corp Hgb Conc 32.9 g/dL (32-36); Mean Corpuscular Hgb 29.9 pg (27.0-32.0); Mean Corpuscular Volume 90.6 fL (81-99); Monocyte# 0.37 X10^3/uL; Monocyte% 10.1 % (0-10); NRBC Flagged by Analyzer 0 % (0-5); Neutrophil # 1.41 X10^3/uL (2.7-7.7); Neutrophil % 38.5 % (47-70); Platelet Count 256 K/mm3 (150-450); RBC Distribution Width CV 12.2 % (11.6-14.6); RBC Distribution Width SD 40.1 fl (35.1-43.9); Red Blood Count 4.69 M/mm3 (4.2-5.4); White Blood Count 3.7 K/mm3 (4.4-11.0)
[2024-08-04 13:53] LABS: Prothrombin Time (Protime)PT. 12.9 SECONDS (11.7-14.9)
[2024-08-04 13:54] LABS: Partial Thromboplast Time 28.8 Seconds (24.1-36.2)
[2024-08-04 14:12] LABS: Anion Gap 10 (5-15); BUN 16 mg/dL (4-19); BUN/Creat Ratio 16.6 RATIO (10-20); Calcium,Total 9.9 mg/dL (7.6-11.0); Chloride 103 mmol/L (98-108); Creatinine, Serum 0.95 mg/dL (0.70-1.20); EST Glomerular Filtration Rate 72 (>60); Estimated Creatinine Clearance 68.35 ml/min (50-250); Glucose 93 mg/dL (70-99); Sodium Level 141 mmol/L (133-145); Troponin T High Sensitivity < 6 ng/L (<=14)
[2024-08-04 16:01] LABS: Troponin T High Sens 2 HR < 6 ng/L (<=14)
--- NOTE | 2024-08-04 16:06 | PCM.HP.STD ---
HPI - General General Date of Admission: 08/04/24 Date of Service: 08/04/24 Chief Complaint: Left face and upper extremity paresthesias HPI Narrative MAGGIE CHÁVEZ, is a 53-year-old female with a history of UTIs presented [facility] ED 08/04/2024 with paresthesias to left face and hand that started at 830 when she went to work. Has had multiple episodes like this in the past that usually resolve after few hours, usually does not have associated headache. She called her PCP who sent her to the ED. In the ED workup negative, hospitalist contacted to admit patient for stroke workup. Patient seen at bedside and reports that this morning at 830 she noticed left hand and face paresthesias, she was not overly concerned as she has had this before and it usually lasts couple hours and goes away but came to the ED because of her PCPs recommendation. Does note that around 8 to 10 months ago had difficulty with the coordination of right hand for 1 week, also feels she has intermittently had facial droop that she has noticed in hindsight and pictures. ROS otherwise negative, presently feels that symptoms have resolved. [facility] Medical History (Updated 08/04/24 @ 15:[address] Georgie Mcknight, DO) Acute bronchitis, unspecified Acute maxillary sinusitis, unspecified Blackout Cardiology follow-up encounter High cholesterol History of echocardiogram History of irregular heartbeat Non-smoker Pain UTI (urinary tract infection) Wears contact lenses Wears glasses Home Medications ?Medication ?Instructions ?Recorded ?Last Taken ?Type Lactobacillus acidophilus 250 500 mmu cells PO DAILY 05/20/23 08/04/24 History million cell capsule (Probiotic Acidophilus) d-mannose 500 mg capsule (AZO 1,000 mg PO DAILY 05/20/23 08/04/24 History D-Mannose) estradiol 0.01% (0.1 mg/gram) 1 appful vaginal MOWEFR 05/20/23 Unknown History vaginal cream multivitamin-ferrous 2 tab PO DAILY 05/20/23 08/04/24 History fumarate-folic acid 18 mg-400 mcg tablet (One Daily Multivitamin with Iron (folic acid)) trimethoprim 100 mg tablet 100 mg PO QHS PRN UTI 05/20/23 07/31/24 History ascorbic acid (vitamin C) 500 mg 500 mg PO DAILY 08/04/24 Unknown History tablet (C-500) calcium carbonate (Calcium 600) 1,200 mg PO DAILY 08/04/24 08/04/24 History Allergy/AdvReac Type Severity Reaction Status Date / Time No Known Allergies Allergy Verified 08/04/24 12:55 Family History Other Heart disease Surgical History Hx of colonoscopy Hx of wisdom tooth extraction Social History (Updated 08/04/24 @ 15:00 by Yun Fox) household members: spouse Smoking Status: Never smoker ROS ROS Narrative General: Denies fever/chills HENT: Denies headache, denies stuffy nose, denies sore throat EYES: Denies changes in vision Resp: Denies cough, denies shortness of breath Cardiac: Denies chest pain GI: Denies abdominal pain, denies changes in bowel, denies nausea/vomiting : Denies changes in urination Extremity: Denies swelling MSK: Denies weakness Neuro: Some intermittent left face and left arm numbness Heme: Denies any bleeding or bruising Skin: Denies rashes Psychiatric: No complaints voiced Vital Signs Vital Signs Vital Signs: 08/04/24 12:52 08/04/24 13:10 08/04/24 13:52 Temperature 98.2 F Temperature Source Oral Pulse Rate 78 73 Respiratory Rate 18 15 Blood Pressure 124/98 H Blood Pressure Mean 106 Pulse Ox 99 98 Oxygen Delivery Method Room Air Room Air Room Air 08/04/24 14:00 08/04/24 15:00 08/04/24 15:17 Temperature 98.2 F Temperature Source Pulse Rate 80 80 68 Respiratory Rate 16 15 16 Blood Pressure 145/78 H 141/78 H 136/80 H Blood Pressure Mean 100 99 98 Pulse Ox 100 99 100 Oxygen Delivery Method Weight Weight: 61.8 kg Body Mass Index (BMI) 20.1 Physical Exam Narrative General: Alert, oriented, no apparent distress HEENT: Atraumatic, normocephalic Eyes: Anicteric, normal conjunctiva, extraocular movements intact, pupils equal Neck: Supple Respiratory: Clear to auscultation bilaterally, normal respiratory effort Cardiovascular: Regular rate and rhythm GI: Soft, nontender, nondistended Extremities: No edema Musculoskeletal: Strength 5 out of 5 in right upper extremity, 5 out of 5 left upper extremity, 5 out of 5 right lower extremity, 5 out of 5 left lower extremity Neuro: No overt focal neurological deficits, cranial nerves II through XII intact, [id number] without significant difficulty bilaterally Skin: No rashes appreciated Psych: Cooperative Results Lab / Micro Data 08/04/24 13:37 08/04/24 13:37 Labs: Laboratory Results - last 24 hr 08/04/24 13:37: WBC 3.7 L, RBC 4.69, Hgb 14.0, Hct 42.5, MCV 90.6, MCH 29.9, MCHC 32.9, RDW Std Deviation 40.1, RDW Coeff of Rae 12.2, Plt Count 256, MPV 10.0, Immature Gran % (Auto) 0.000, Neut % (Auto) 38.5 L, Lymph % (Auto) 49.2 H, Tate % (Auto) 10.1 H, Eos % (Auto) 1.4, Baso % (Auto) 0.8, Absolute Neuts (auto) 1.4 L, Absolute Lymphs (auto) 1.80, Nucleated RBC % 0, PT 12.9, INR 1.0, APTT 28.8, Sodium 141, Potassium 4.0, Chloride 103, Carbon Dioxide 28.0, Anion Gap 10, BUN 16, Creatinine 0.95, Estim Creat Clear Calc 68.35, Est GFR (MDRD) Non-Af 72, BUN/Creatinine Ratio 16.6, Glucose 93, Calcium 9.9, Troponin T High Sens < 6 08/04/24 15:32: Troponin T Hi Sens 2 Hr < 6 Imaging Radiology Impression Head/Neck CTA 08/04/24 13:11 IMPRESSION: 1. No large vessel occlusion, AVM or aneurysm. 2. No focal narrowing by NASCET criteria. 3. Biapical emphysema/scarring. Reading Location: [facility] Brain CT 08/04/24 13:40 IMPRESSION: NORMAL NONCONTRAST HEAD CT. Red Alert: Nothing Acute The critical information above was relayed directly by me by telephone to Georgie Mcknight on 08/04/2024 at 2:04 pm with readback verification. Reading Location: [facility] Assessment & Plan Assessment/Plan (1) Paresthesias: PLAN: Plan # Left face and left arm paresthesias -Admit to tele -CT head negative -CTA head and neck no LVO s -MRI ordered, given the atypical symptoms with various and recurrent symptoms and her age we will obtain MRI with and without contrast -NIH q4hr -asa, statin -Echo w/ bubble study -PT/OT/Speech eval -Teleneuro consult ordered -Hold BP medications to allow for permissive hypertension for 24 hours unless SBP greater than 220 or DBP greater than 120 or until stroke is ruled out #DVT ppx: SCDs Vanesa Salinas MD Charges/Coding Visit Charges Inpatient E&M: 43578 Init Hosp L1
--- NOTE | 2024-08-04 16:13 | MRI_ITS ---
PROCEDURE: BRAIN W/WO CONTRAST 08/04/2024 REASON FOR EXAM: INTERMITTENT PARASTHESIAS TECHNIQUE: Routine brain MRI without and with intravenous contrast. Multiplanar and multisequence images were obtained. CONTRAST: Clariscan VOLUME: 12 mL Gauge IV COMPARISON: CT of the head earlier today FINDINGS: Brain: Normal signal intensities. Diffusion: No restricted diffusion to suggest acute or subacute infarction. Ventricles: Normal. Major Intracranial Vessels: Normal flow voids. Sinuses: Clear. Mastoids: Clear. MRI/Brain W/WO Contrast IMPRESSION: NORMAL BRAIN MRI WITHOUT AND WITH CONTRAST. Reading Location: [id number]
--- NOTE | 2024-08-04 16:13 | ECHOD_ITS ---
Reason For Study Reason For Study: TIA/CVA Procedure This was a 2D Doppler, Color Flow transthoracic echocardiogram. Exam performed portable in patient room. Left Ventricle Normal LV size. Left ventricular systolic function is normal. The left ventricular ejection fraction is 60 %. No regional wall motion abnormalities noted. Right Ventricle Normal RV size. Normal systolic function. Atria Normal left atrium. Normal right atrium. Mitral Valve Normal mitral valve. Tricuspid Valve Normal tricuspid valve. Aortic Valve Normal aortic valve. Trisinus/trileaflet aortic valve. Pulmonic Valve Normal pulmonic valve. Great Vessels Normal aortic root. The pulmonary artery is normal size. Inferior vena cava collapse with respiration. Pericardium/Pleural No pericardial effusion. MMode/2D Measurements & Calculations LVIDd: 4.8 cm IVSd: 0.71 cm Ao root diam: 3.0 cm LVIDs: 3.2 cm LVPWd: 0.71 cm RVDd: 2.6 cm FS: 33.1 % LAV(MOD-bp): 30.0 ml LVAd ap4: 20.2 cm2 SV(MOD-sp4): 26.8 ml LAV(MOD-bp) Indexed: 17.0 ml/m2 LVLd ap4: 7.4 cm SI(MOD-sp4): 15.2 ml/m2 LAV(MOD-sp2): 31.3 ml EDV(MOD-sp4): 49.1 ml LAV(MOD-sp4): 21.1 ml EDV(sp4-el): 47.1 ml LVAs ap4: 12.2 cm2 LVLs ap4: 5.9 cm ESV(MOD-sp4): 22.4 ml ESV(sp4-el): 21.5 ml EF(MOD-sp4): 54.4 % EF(sp4-el): 54.4 % SV(sp4-el): 25.6 ml LA A4 area: 9.9 cm2 LA dimension(2D): 2.1 cm TAPSE: 1.8 cm Time Measurements MV dec time: 0.19 sec Doppler Measurements & Calculations MV E max phillip: 62.4 cm/sec Lat Peak E' Phillip: 10.2 cm/sec Med Peak E' Phillip: 8.5 cm/sec MV A max phillip: 50.9 cm/sec E/E' lat: 6.1 E/E' med: 7.3 MV E/A: 1.2 PA V2 max: 93.0 cm/sec PI dec slope: 120.5 cm/sec2 TR max phillip: 191.2 cm/sec PA V2 mean: 73.8 cm/sec TR max P.6 mmHg ECHO/Echo Complete Interpretation Summary Normal LV size. Left ventricular systolic function is normal. The left ventricular ejection fraction is 60 %. Structurally normal valves. Ordering Physician: Vanesa Salinas Referring Physician: Bia Carranza Performed By: Amy Robbins RDCS, RVT
[2024-08-04 19:05] LABS: Troponin T High Sensitivity < 6 ng/L (<=14)
[2024-08-04 20:52] LABS: Troponin T High Sens 2 HR 9 ng/L (<=14)
[2024-08-04] MEDS: Acetaminophen 325 MG Tablet 650 MG PO (22:00)
[2024-08-05 00:53] VITALS: BMI 20.5
[2024-08-05 00:55] LABS: Troponin T High Sens 4 HR < 6 ng/L (<=14)
[2024-08-05 02:00] VITALS: BP 98/70; PULSE 64; RESP 18; TEMP 36.9; O2SAT 97
[2024-08-05 02:29] VITALS: BMI 20.5
[2024-08-05 06:00] VITALS: BP 103/67; PULSE 61; RESP 18; TEMP 36.8; O2SAT 97
[2024-08-05] MEDS: Acetaminophen 325 MG Tablet 650 MG PO (06:18)
[2024-08-05 07:04] LABS: Absolute Lymphocyte Count 1.23 X10^3/uL (0.83-4.51); Absolute Neutrophil Count 1.5 X10^3/uL (2.0-7.7); Basophil# 0.02 X10^3/uL; Basophil% 0.6 % (0-1); Eosinophil# 0.06 X10^3/uL; Eosinophils% 1.9 % (0-5); Hematocrit 42.4 % (37-47); Hemoglobin 14.2 g/dL (12.0-15.0); Lymphocyte # 1.23 X10^3/ul (0.83-4.51); Lymphocyte % 39.9 % (19-41); Mean Corp Hgb Conc 33.5 g/dL (32-36); Mean Corpuscular Hgb 29.9 pg (27.0-32.0); Mean Corpuscular Volume 89.3 fL (81-99); Mean Platelet Vol. 9.9 fl (6.2-12.0); Monocyte# 0.28 X10^3/uL; Monocyte% 9.1 % (0-10); NRBC Flagged by Analyzer 0 % (0-5); Neutrophil # 1.48 X10^3/uL (2.7-7.7); Neutrophil % 48.2 % (47-70); Platelet Count 245 K/mm3 (150-450); RBC Distribution Width CV 12.2 % (11.6-14.6); RBC Distribution Width SD 39.9 fl (35.1-43.9); Red Blood Count 4.75 M/mm3 (4.2-5.4); White Blood Count 3.1 K/mm3 (4.4-11.0)
[2024-08-05 07:06] LABS: Prothrombin Time (Protime)PT. 13.2 SECONDS (11.7-14.9)
[2024-08-05 07:34] LABS: Anion Gap 10 (5-15); BUN 14 mg/dL (4-19); BUN/Creat Ratio 16.3 RATIO (10-20); Calcium,Total 9.4 mg/dL (7.6-11.0); Carbon Dioxide 24.5 mmol/L (21.0-32.0); Chloride 105 mmol/L (98-108); Cholesterol 204 mg/dL (<=200); Creatinine, Serum 0.88 mg/dL (0.70-1.20); EST Glomerular Filtration Rate 80 (>60); Glucose 95 mg/dL (70-99); High Density Lipoprotein 63 mg/dL; Low Density Lipoprotein Calc. 126 mg/dL; Potassium 4.1 mmol/L (3.3-5.1); Sodium Level 140 mmol/L (133-145); Triglycerides 73 mg/dL; Very Low Density Lipoprotein 15 mg/dL (5-40); cholesterol:hdl ratio screen 3.23
[2024-08-05 07:48] VITALS: O2SAT 96
[2024-08-05 08:50] LABS: Hemoglobin A1c 5.5 % (<=5.6)
--- NOTE | 2024-08-05 08:51 | PCM.PN.HOSP ---
Reason for Visit Reason for Visit: Diagnoses Paresthesia of skin (08/04/24) Objective Data Objective Data Vital Signs: Vital Signs Temp Pulse Resp BP Pulse Ox O2 Del Method 98.2 F 61 18 103/67 96 Room Air 08/05/24 06:00 08/05/24 06:00 08/05/24 06:00 08/05/24 06:00 08/05/24 07:48 08/05/24 07:48 Oxygen Delivery Method Room Air Weight: 138 lb 10.732 oz Body Mass Index (BMI) 20.5 Intake & Output: Intake and Output for Last 24 Hours 08/03/24 08/04/24 08/05/24 23:59 23:59 23:59 Intake Total 120 / 120 Balance 120 / 120 Lab / Micro Data 08/05/24 06:29 08/05/24 06:29 Labs: Laboratory Results - last 24 hr 08/04/24 13:37: WBC 3.7 L, RBC 4.69, Hgb 14.0, Hct 42.5, MCV 90.6, MCH 29.9, MCHC 32.9, RDW Std Deviation 40.1, RDW Coeff of Rae 12.2, Plt Count 256, MPV 10.0, Immature Gran % (Auto) 0.000, Neut % (Auto) 38.5 L, Lymph % (Auto) 49.2 H, Kerr % (Auto) 10.1 H, Eos % (Auto) 1.4, Baso % (Auto) 0.8, Absolute Neuts (auto) 1.4 L, Absolute Lymphs (auto) 1.80, Nucleated RBC % 0, PT 12.9, INR 1.0, APTT 28.8, Sodium 141, Potassium 4.0, Chloride 103, Carbon Dioxide 28.0, Anion Gap 10, BUN 16, Creatinine 0.95, Estim Creat Clear Calc 68.35, Est GFR (MDRD) Non-Af 72, BUN/Creatinine Ratio 16.6, Glucose 93, Calcium 9.9, Troponin T High Sens < 6 08/04/24 15:32: Troponin T Hi Sens 2 Hr < 6 08/04/24 18:00: Troponin T High Sens < 6 08/04/24 20:10: Troponin T Hi Sens 2 Hr 9 08/04/24 21:55: Troponin T Hi Sens 4Hr < 6 08/05/24 06:29: WBC 3.1 L, RBC 4.75, Hgb 14.2, Hct 42.4, MCV 89.3, MCH 29.9, MCHC 33.5, RDW Std Deviation 39.9, RDW Coeff of Rae 12.2, Plt Count 245, MPV 9.9, Immature Gran % (Auto) 0.300, Neut % (Auto) 48.2, Lymph % (Auto) 39.9, Kerr % (Auto) 9.1, Eos % (Auto) 1.9, Baso % (Auto) 0.6, Absolute Neuts (auto) 1.5 L, Absolute Lymphs (auto) 1.23, Nucleated RBC % 0, PT 13.2, INR 1.0, Sodium 140, Potassium 4.1, Chloride 105, Carbon Dioxide 24.5, Anion Gap 10, BUN 14, Creatinine 0.88, Estim Creat Clear Calc 75.10, Est GFR (MDRD) Non-Af 80, BUN/Creatinine Ratio 16.3, Glucose 95, Hemoglobin A1c 5.5, Calcium 9.4, Triglycerides 73, Cholesterol 204 H, LDL Cholesterol, Calc 126, VLDL Cholesterol 15, HDL Cholesterol 63, Cholesterol/HDL Ratio 3.23, TSH 4.030 Radiography Diagnostic Testing: Radiology Impression Head/Neck CTA 08/04/24 13:11 IMPRESSION: 1. No large vessel occlusion, AVM or aneurysm. 2. No focal narrowing by NASCET criteria. 3. Biapical emphysema/scarring. Reading Location: [facility] Brain CT 08/04/24 13:40 IMPRESSION: NORMAL NONCONTRAST HEAD CT. Red Alert: Nothing Acute The critical information above was relayed directly by me by telephone to Georgie Mcknight on 08/04/2024 at 2:04 pm with readback verification. Reading Location: [facility] Brain MRI 08/04/24 16:13 IMPRESSION: NORMAL BRAIN MRI WITHOUT AND WITH CONTRAST. Reading Location: [facility] [[email or web address] Assessment & Plan Assessment/Plan (1) Paresthesias: PLAN: Plan 52-year-old female was admitted with paresthesia of left side of face and left hand. Had similar symptoms with intermittent episodes for the past several months including facial drooping. # Left face and left arm paresthesias -Admit to tele -CT head negative -CTA head and neck no LVO s -MRI ordered, given the atypical symptoms with various and recurrent symptoms and her age we will obtain MRI with and without contrast -NIH q4hr -asa, statin -Echo w/ bubble study -PT/OT/Speech eval -Teleneuro consult ordered -Hold BP medications to allow for permissive hypertension for 24 hours unless SBP greater than 220 or DBP greater than 120 or until stroke is ruled out #DVT ppx: SCDs Vanesa Salinas MD NIHSS NIHSS Nursing Documentation NIHSS Nursing Documentation: NIHSS: Ischemic Stroke/TIA Start: 08/04/24 17:53 Text: For PCU Patients: NIH and Neuro Check every 4 Status: Active hours, PRN and with change in RN caregiver. Freq: [id number] Protocol: Activity Type Activity Date Activity User E-sign Co-sign Detail Recorded Client Recorded Date Recorded By Document 08/05/24 06:00 DC [id number] 08/05/24 06:51 DC 08/05/24 06:00 NIH Stroke Scale [NIHSS] A score of 0 is normal or asymptomatic . Total possible score is 42. Inpatient: RN or Physician to activate a stroke alert for onset of new stroke symptoms or with NIHSS increase >/= 3 points. Following change in neurological status, NIHSS will be performed per physician order or more frequently PRN. -1a. Level of Consciousness 0 - Alert; keenly responsive -1b. LOC Questions 0 - Answers BOTH questions correctly -1c. LOC Commands 0 - Performs BOTH tasks correctly -2. Best Gaze 0 - Normal -3. Visual 0 - No visual loss -4. Facial Palsy 0 - Normal symmetrical movements -5a. Left Arm 0 - No drift; arm holds 90 ( or 45) degrees for full 10 seconds -5b. Right Arm 0 - No drift; arm holds 90 ( or 45) degrees for full 10 seconds -6a. Left Leg 0 - No drift; leg holds 30- degree position for full 5 seconds -6b. Right Leg 0 - No drift; leg holds 30- degree position for full 5 seconds -7. Limb Ataxia 0 - Absent -8. Sensory 0 - Normal; no sensory loss -9. Best Language 0 - No aphasia; normal -10. Dysarthria 0 - Normal -11. Extinction and Inattention 0 - No abnormality -Total 0 Query Text:A score of 0 is normal or asymptomatic. Total possible score is 42 . ED: Notify Physician for NIHSS increase by > / = 3 points. Inpatient: RN or Physician to activate a stroke alert for NIHSS increase of > / = 3 points. Coma Scale [Assess] -Eye Opening Spontaneous -Motor Obeys Commands -Verbal Oriented [Total] -Coma Scale Total 15
[2024-08-05 09:53] VITALS: BP 112/86; PULSE 66; RESP 16; TEMP 37; O2SAT 98
--- NOTE | 2024-08-05 11:50 | CASEMGMT ---
SW did not complete a PHQ 9 as patient did not have a Stroke or TIA. [place] ARCOS
--- NOTE | 2024-08-05 12:22 | CASEMGMT ---
RN CM NOTE: Discharge order is in. Per PT/OT and ST, pt has returned to prior level of functioning and no therapy is needed. RN CM to room. Pt resting in bed. Introduced self and role. Pt denies having any discharge needs or concerns. Mitchell BSN RN CM
--- NOTE | 2024-08-05 12:39 | PCM.DC.SUM ---
Providers Date of Admission: 08/04/24 Date of Discharge: 08/05/24 Primary Care Physician: JASEN Butts Consultations 08/04/24 17:53 Consult: Tele-Neurology Routine Consulting Provider: [facility] Reason for Consult: Acute Ischemic Stroke/TIA EMERGENT Consult: No MD Notified: Yes Date Notified: 08/04/24 Time Notified: 18:44 Method of Notification: Answering Service Nursing Unit Staff Notify [facility] of Tele-Neurology Consult: Yes Reason For Visit: CVA RULE OUT Diagnosis Discharge Diagnosis (1) Paresthesias: Status: Acute Code(s): R20.2 - Paresthesia of skin Plan 52-year-old female was admitted with paresthesia of left side of face and left hand. Had similar symptoms with intermittent episodes for the past several months including facial drooping. # Left face and left arm paresthesias: Patient was admitted on telemetry. Normal sinus rhythm. Serial troponins negative. ACS ruled out. CT head and neck shows no LVO. MRI brain with and without contrast reported normal. Stroke protocol ordered followed but a stroke workup was negative. Fasting lipid profile in normal limit. Patient has intermittent left hand and face numbness but Tinel sign was negative. Advised follow-up outpatient with neurologist referred by PCP. Echo bubble study pending. #DVT ppx: SCDs Discharge medication reconciliation done. Discharge follow-up instructions completed. Discharge process discussed with the patient and all questions were answered to patient's satisfaction. Follow with PCP in 1 to 2 weeks Total time spent, exact 35 minutes on discharge meds reconciliation, examination, coordination of care with nurses and ancillary staff, review of imaging and blood test and discussion with the patient on follow-up instructions. Medications at Discharge Home Medications Lactobacillus acidophilus 250 million cell capsule (Probiotic Acidophilus) 500 mmu cells PO DAILY 05/20/23 d-mannose 500 mg capsule (AZO D-Mannose) 1,000 mg PO DAILY 05/20/23 estradiol 0.01% (0.1 mg/gram) vaginal cream 1 appful vaginal MOWEFR 05/20/23 multivitamin-ferrous fumarate-folic acid 18 mg-400 mcg tablet (One Daily Multivitamin with Iron (folic acid)) 2 tab PO DAILY 05/20/23 trimethoprim 100 mg tablet 100 mg PO QHS PRN UTI 05/20/23 ascorbic acid (vitamin C) 500 mg tablet (C-500) 500 mg PO DAILY 08/04/24 calcium carbonate (Calcium 600) 1,200 mg PO DAILY 08/04/24 Physical Exam Narrative Seen and examined. Patient has intermittent left hand numbness and left facial numbness. Physical exam General: Alert, Oriented x3, Cooperative. BMI normal 20.5 kg/m? HEENT: Atraumatic, PERRLA, EOMI, Normocephalic Oral: Oral mucosa moist. No Gingival or Mucosal Lesions/ Ulcerations Neck: Supple, No JVD, Negative Carotid Bruits Chest wall/Lungs: Air entry equal in bilateral lung bases. No crepitation/rhonchi Cardiovascular: Regular rate, Regular Rhythm, Normal S1, Normal S2, No M/G/R Abdomen: Bowel Sounds Present, Soft, Non Tender, Non-Distended : No dysuria. No renal angle tenderness. No suprapubic tenderness. Extremities: No edema, Capillary Refill Less than 3 Seconds Skin: No rashes, No breakdown Musculoskeletal: No Tenderness to Palpation of Joints or Extremities Neurological: Cranial nerves II-XII grossly intact, DTR 2+/4. No acute focal neurological deficit. Psych/Mental Status: Normal Affect, Appropriate. Weight / BMI Weight Weight: 138 lb 10.732 oz Body Mass Index (BMI) 20.5 ABG / Lab / Microbiology Data 08/05/24 06:29 08/05/24 06:29 Laboratory: Laboratory Results - last 24 hr 08/04/24 13:37: WBC 3.7 L, RBC 4.69, Hgb 14.0, Hct 42.5, MCV 90.6, MCH 29.9, MCHC 32.9, RDW Std Deviation 40.1, RDW Coeff of Rae 12.2, Plt Count 256, MPV 10.0, Immature Gran % (Auto) 0.000, Neut % (Auto) 38.5 L, Lymph % (Auto) 49.2 H, [place] % (Auto) 10.1 H, Eos % (Auto) 1.4, Baso % (Auto) 0.8, Absolute Neuts (auto) 1.4 L, Absolute Lymphs (auto) 1.80, Nucleated RBC % 0, PT 12.9, INR 1.0, APTT 28.8, Sodium 141, Potassium 4.0, Chloride 103, Carbon Dioxide 28.0, Anion Gap 10, BUN 16, Creatinine 0.95, Estim Creat Clear Calc 68.35, Est GFR (MDRD) Non-Af 72, BUN/Creatinine Ratio 16.6, Glucose 93, Calcium 9.9, Troponin T High Sens < 6 08/04/24 15:32: Troponin T Hi Sens 2 Hr < 6 08/04/24 18:00: Troponin T High Sens < 6 08/04/24 20:10: Troponin T Hi Sens 2 Hr 9 08/04/24 21:55: Troponin T Hi Sens 4Hr < 6 08/05/24 06:29: WBC 3.1 L, RBC 4.75, Hgb 14.2, Hct 42.4, MCV 89.3, MCH 29.9, MCHC 33.5, RDW Std Deviation 39.9, RDW Coeff of Rae 12.2, Plt Count 245, MPV 9.9, Immature Gran % (Auto) 0.300, Neut % (Auto) 48.2, Lymph % (Auto) 39.9, [place] % (Auto) 9.1, Eos % (Auto) 1.9, Baso % (Auto) 0.6, Absolute Neuts (auto) 1.5 L, Absolute Lymphs (auto) 1.23, Nucleated RBC % 0, PT 13.2, INR 1.0, Sodium 140, Potassium 4.1, Chloride 105, Carbon Dioxide 24.5, Anion Gap 10, BUN 14, Creatinine 0.88, Estim Creat Clear Calc 75.10, Est GFR (MDRD) Non-Af 80, BUN/Creatinine Ratio 16.3, Glucose 95, Hemoglobin A1c 5.5, Calcium 9.4, Triglycerides 73, Cholesterol 204 H, LDL Cholesterol, Calc 126, VLDL Cholesterol 15, HDL Cholesterol 63, Cholesterol/HDL Ratio 3.23, TSH 4.030 Radiography Diagnostic Testing: Radiology Impression Head/Neck CTA 08/04/24 13:11 IMPRESSION: 1. No large vessel occlusion, AVM or aneurysm. 2. No focal narrowing by NASCET criteria. 3. Biapical emphysema/scarring. Reading Location: [facility] Brain CT 08/04/24 13:40 IMPRESSION: NORMAL NONCONTRAST HEAD CT. Red Alert: Nothing Acute The critical information above was relayed directly by me by telephone to Georgie Mcknight on 08/04/2024 at 2:04 pm with readback verification. Reading Location: [facility] [place] Brain MRI 08/04/24 16:13 IMPRESSION: NORMAL BRAIN MRI WITHOUT AND WITH CONTRAST. Reading Location: [id number] D/C Instructions Discharge Diet: No restrictions Weight Bearing Status: Weight bearing as tolerated Call your doctor if you observe: Fever of 101 or Higher, Coldness, Increased Pain, Numbness or Tingling, Change in Color, Inability to urinate, Inability to have a bowel movement, Shortness of breath, Dizziness, Fainting spells, Swelling in the ankles, Chest pain, Prolonged hiccupping, Increased palpitations (irregular heartbeat) and Calf discomfort DC O2, CPAP, BIPAP Needs Home O2 Discharge instructions: No When: IN 2 WEEKS Meaningful Use Info Ischemic Stroke Statin Dosing Therapy Reference: STATIN DOSE THERAPY REFERENCE: * Patients > 75 years receive moderate or high dose statin therapy. * Patients 75 years or YOUNGER should receive HIGH intensity statin dose unless contraindicated. You will be required to document reason for non-treatment if statin daily dose does not meet guidelines. HIGH DOSE STATIN THERAPY DAILY Atorvastatin > than or = to 40 mg Rosuvastatin > than or = to 20 mg Amlodipine + Atorvastatin > than or = to 2.5/40 mg Ezetimibe + Simvastatin 10/80 mg Simvastatin 80mg Discharge Plan Admission Admit Date/Time: 08/04/24 16:06 Primary Reason for Your Visit: Left facial numbness, stroke ruled out. Attending Provider: Douglas Appiah Primary Care Provider: Bia Carranza Consulting Providers: Scooter Panda; Pawel Ray; Sandra Gillis; Stephanie Callahan; Rachel Tony; Barringotn Rivera; [place]; Kemal Carnes; Marcus Blanchard; Jean Caba; Sandra Hayward; Deven Ku; Shannan Reyes; Jose Lorenzana; Dayan Romeo; Paramjit Strong; Dinesh Mayer; Ananth Bran; Christina Perea; Jocelyn Brown; Vanesa Salinas Discharge Orders/Prescriptions Prescriptions: Continued estradiol 0.01 % (0.1 mg/gram) cream 1 appful VAGINAL MOWEFR Patient Comments: DOES ONCE A WEEK ON FRIDAY trimethoprim 100 mg tablet 100 mg PO QHS PRN (Reason: UTI) Patient Comments: take 1 tablet by mouth at bedtime One Daily Multivit-Iron(folic) 18-400 mg-mcg tablet 2 tab PO DAILY AZO D-Mannose 500 mg capsule 1,000 mg PO DAILY Probiotic Acidophilus 250 million cell capsule 500 mmu cells PO DAILY ascorbic acid (vitamin C) [C-500] 500 mg tablet 500 mg PO DAILY calcium carbonate [Calcium 600] 600 mg calcium (1,500 mg) tablet 1,200 mg PO DAILY Referrals / Follow Up: Bia Carranza, ZANJERO-C [Primary Care Provider] - Disposition Disposition (needs filled in before D/C Order can be placed): Home, Self Care Charges/Coding Visit Charges Inpatient E&M: 29525 Disch Hosp >30min
--- NOTE | 2024-08-05 13:13 | PN.HOSP_ITS ---
Reason for Visit Reason for Visit: Diagnoses Paresthesia of skin (08/04/24) Objective Data Objective Data Vital Signs: Vital Signs Temp Pulse Resp BP Pulse Ox O2 Del Method 98.6 F 66 16 112/86 H 98 Room Air 08/05/24 09:53 08/05/24 09:53 08/05/24 09:53 08/05/24 09:53 08/05/24 09:53 08/05/24 09:53 Oxygen Delivery Method Room Air Weight: 138 lb 10.732 oz Body Mass Index (BMI) 20.5 Intake & Output: Intake and Output for Last 24 Hours 08/03/24 08/04/24 08/05/24 23:59 23:59 23:59 Intake Total 120 / 120 Balance 120 / 120 Lab / Micro Data 08/05/24 06:29 08/05/24 06:29 Labs: Laboratory Results - last 24 hr 08/04/24 13:37: WBC 3.7 L, RBC 4.69, Hgb 14.0, Hct 42.5, MCV 90.6, MCH 29.9, MCHC 32.9, RDW Std Deviation 40.1, RDW Coeff of Rae 12.2, Plt Count 256, MPV 10.0, Immature Gran % (Auto) 0.000, Neut % (Auto) 38.5 L, Lymph % (Auto) 49.2 H, [place] % (Auto) 10.1 H, Eos % (Auto) 1.4, Baso % (Auto) 0.8, Absolute Neuts (auto) 1.4 L, Absolute Lymphs (auto) 1.80, Nucleated RBC % 0, PT 12.9, INR 1.0, APTT 28.8, Sodium 141, Potassium 4.0, Chloride 103, Carbon Dioxide 28.0, Anion Gap 10, BUN 16, Creatinine 0.95, Estim Creat Clear Calc 68.35, Est GFR (MDRD) Non-Af 72, BUN/Creatinine Ratio 16.6, Glucose 93, Calcium 9.9, Troponin T High Sens < 6 08/04/24 15:32: Troponin T Hi Sens 2 Hr < 6 08/04/24 18:00: Troponin T High Sens < 6 08/04/24 20:10: Troponin T Hi Sens 2 Hr 9 08/04/24 21:55: Troponin T Hi Sens 4Hr < 6 08/05/24 06:29: WBC 3.1 L, RBC 4.75, Hgb 14.2, Hct 42.4, MCV 89.3, MCH 29.9, MCHC 33.5, RDW Std Deviation 39.9, RDW Coeff of Rae 12.2, Plt Count 245, MPV 9.9, Immature Gran % (Auto) 0.300, Neut % (Auto) 48.2, Lymph % (Auto) 39.9, [place] % (Auto) 9.1, Eos % (Auto) 1.9, Baso % (Auto) 0.6, Absolute Neuts (auto) 1.5 L, Absolute Lymphs (auto) 1.23, Nucleated RBC % 0, PT 13.2, INR 1.0, Sodium 140, Potassium 4.1, Chloride 105, Carbon Dioxide 24.5, Anion Gap 10, BUN 14, Creatinine 0.88, Estim Creat Clear Calc 75.10, Est GFR (MDRD) Non-Af 80, BUN/Creatinine Ratio 16.3, Glucose 95, Hemoglobin A1c 5.5, Calcium 9.4, Triglycerides 73, Cholesterol 204 H, LDL Cholesterol, Calc 126, VLDL Cholesterol 15, HDL Cholesterol 63, Cholesterol/HDL Ratio 3.23, TSH 4.030 Radiography Diagnostic Testing: Radiology Impression Head/Neck CTA 08/04/24 13:11 IMPRESSION: 1. No large vessel occlusion, AVM or aneurysm. 2. No focal narrowing by NASCET criteria. 3. Biapical emphysema/scarring. Reading [facility] Brain CT 08/04/24 13:40 IMPRESSION: NORMAL NONCONTRAST HEAD CT. Red Alert: Nothing Acute The critical information above was relayed directly by me by telephone to Georgie Mcknight on 08/04/2024 at 2:04 pm with readback verification. Reading Location: [facility] Brain MRI 08/04/24 16:13 IMPRESSION: NORMAL BRAIN MRI WITHOUT AND WITH CONTRAST. Reading Location: [facility] Physical Exam Narrative Seen and examined. Patient has intermittent left hand numbness and left facial numbness. History of chronic neck tightness but denies pain Physical exam General: Alert, Oriented x3, Cooperative. BMI normal 20.5 kg/m? HEENT: Atraumatic, PERRLA, EOMI, Normocephalic Oral: Oral mucosa moist. No Gingival or Mucosal Lesions/ Ulcerations Neck: Supple, No JVD, Negative Carotid Bruits Chest wall/Lungs: Air entry equal in bilateral lung bases. No crepitation/rhonchi Cardiovascular: Regular rate, Regular Rhythm, Normal S1, Normal S2, No M/G/R Abdomen: Bowel Sounds Present, Soft, Non Tender, Non-Distended : No dysuria. No renal angle tenderness. No suprapubic tenderness. Extremities: No edema, Capillary Refill Less than 3 Seconds Skin: No rashes, No breakdown Musculoskeletal: No Tenderness to Palpation of Joints or Extremities Neurological: Cranial nerves II-XII grossly intact, DTR 2+/4. Sensory exam to touch equal both sides. Left >right brisk tendon reflexes especially knee Psych/Mental Status: Normal Affect, Appropriate. Assessment & Plan Assessment/Plan (1) Paresthesias: PLAN: Plan 52-year-old female was admitted with paresthesia of left side of face and left hand. Had similar symptoms with intermittent episodes for the past several months including facial drooping. # Left face and left arm paresthesias: Patient was admitted on telemetry. Normal sinus rhythm. Serial troponins negative. ACS ruled out. CT head and neck shows no LVO. MRI brain with and without contrast reported normal. Stroke protocol ordered followed but a stroke workup was negative. Fasting lipid profile in normal limit. Patient has intermittent left hand and face numbness but Tinel sign was negative 2D echo reported normal Patient was seen by the [facility] neurologist and recommended MRI C-spine with and without contrast with history of cervical degenerative disc disease and hyperreflexia of the left leg. Routine EEG to rule out interictal cortical discharges. Patient wanted to go home in the morning and pursue workup as mentioned above as an outpatient but later she changed her mind and decided to stay. Above tests ordered. #DVT ppx: SCDs Charges/Coding Visit Charges Inpatient E&M: 57346 Subs Hosp L2 NIHSS NIHSS Nursing Documentation NIHSS Nursing Documentation: NIHSS: Ischemic Stroke/TIA Start: 08/04/24 17:53 Text: For PCU Patients: NIH and Neuro Check every 4 Status: Complete hours, PRN and with change in RN caregiver. Freq: [id number] Protocol: Activity Type Activity Date Activity User E-sign Co-sign Detail Recorded Client Recorded Date Recorded By Document 08/05/24 09:53 [id number] 08/05/24 09:56 SS 08/05/24 09:53 NIH Stroke Scale [NIHSS] A score of 0 is normal or asymptomatic . Total possible score is 42. Inpatient: RN or Physician to activate a stroke alert for onset of new stroke symptoms or with NIHSS increase >/= 3 points. Following change in neurological status, NIHSS will be performed per physician order or more frequently PRN. -1a. Level of Consciousness 0 - Alert; keenly responsive -1b. LOC Questions 0 - Answers BOTH questions correctly -1c. LOC Commands 0 - Performs BOTH tasks correctly -2. Best Gaze 0 - Normal -3. Visual 0 - No visual loss -4. Facial Palsy 0 - Normal symmetrical movements -5a. Left Arm 0 - No drift; arm holds 90 ( or 45) degrees for full 10 seconds -5b. Right Arm 0 - No drift; arm holds 90 ( or 45) degrees for full 10 seconds -6a. Left Leg 0 - No drift; leg holds 30- degree position for full 5 seconds -6b. Right Leg 0 - No drift; leg holds 30- degree position for full 5 seconds -7. Limb Ataxia 0 - Absent -8. Sensory 0 - Normal; no sensory loss -9. Best Language 0 - No aphasia; normal -10. Dysarthria 0 - Normal -11. Extinction and Inattention 0 - No abnormality -Total 0 Query Text:A score of 0 is normal or asymptomatic. Total possible score is 42 . ED: Notify Physician for NIHSS increase by > / = 3 points. Inpatient: RN or Physician to activate a stroke alert for NIHSS increase of > / = 3 points. Coma Scale [Assess] -Eye Opening Spontaneous -Motor Obeys Commands -Verbal Oriented [Total] -Coma Scale Total 15
--- NOTE | 2024-08-05 13:13 | MRI_ITS ---
PROCEDURE: SPINE CERVICAL W/WO CONTRAST 08/05/2024 REASON FOR EXAM: TO RULE OUT MYELOPATHIC FEATURES. R/O MS LESIONS TECHNIQUE: Cervical spine MRI without and with Multiplanar and multisequence images were obtained with intravenous gadolinium- based contrast administration. COMPARISON: None FINDINGS: Vertebral body heights are within normal limits. Negative for fracture or marrow replacement. Spinal cord is of normal caliber, contour and signal intensity. No pathologic enhancement. Alignment is intact. No paraspinal mass. C2-3: No focal disc abnormality, spinal stenosis or foraminal narrowing. C3-4: No focal disc abnormality, spinal stenosis or foraminal narrowing. C4-5: Small posterior disc osteophyte complex. Mild bilateral facet and uncovertebral arthrosis. No significant spinal stenosis or foraminal narrowing. C5-6: Small posterior disc osteophyte complex. Mild bilateral facet and uncovertebral arthrosis. No significant spinal stenosis or foraminal narrowing. C6-7: Small posterior disc osteophyte complex. Mild bilateral uncovertebral arthrosis. No significant spinal stenosis or foraminal narrowing. C7-T1: No focal disc abnormality, spinal stenosis or foraminal narrowing. MRI/Spine Cervical W/WO Contrast IMPRESSION: 1. Normal cord signal. No pathologic enhancement. 2. Mild multilevel spondylosis without significant spinal stenosis or foraminal narrowing. Reading Location: [facility]
--- NOTE | 2024-08-05 14:19 | PHA.DC.MR.R ---
Pharmacy [facility] Med Reconciliation Pharmacy Service has performed discharge medication reconciliation for this patient. The patient's discharge medication list was reviewed for discrepancies and discrepancies were resolved. Medications at Discharge Home Medications Lactobacillus acidophilus 250 million cell capsule (Probiotic Acidophilus) 500 mmu cells PO DAILY 05/20/23 d-mannose 500 mg capsule (AZO D-Mannose) 1,000 mg PO DAILY 05/20/23 estradiol 0.01% (0.1 mg/gram) vaginal cream 1 appful vaginal MOWEFR 05/20/23 multivitamin-ferrous fumarate-folic acid 18 mg-400 mcg tablet (One Daily Multivitamin with Iron (folic acid)) 2 tab PO DAILY 05/20/23 trimethoprim 100 mg tablet 100 mg PO QHS PRN UTI 05/20/23 ascorbic acid (vitamin C) 500 mg tablet (C-500) 500 mg PO DAILY 08/04/24 calcium carbonate (Calcium 600) 1,200 mg PO DAILY 08/04/24
[2024-08-05 15:14] VITALS: BP 118/85; PULSE 59; RESP 16; TEMP 36.7; O2SAT 99
--- NOTE | 2024-08-05 15:17 | NEURO.CONS ---
Assessment and Plan: Neuro Assessment/Plan MAGGIE CHÁVEZ is a 53 F with past medical history of cervical DDD (chronic neck and back pain) who is being evaluated for paresthesias. Patient reports the past few months of episodes of paraesthesias in her left face, left face + hand, and left face/arm/leg that have been occurring on and off and typically last hours with fluctuating severity she describes as pins/needles or tingling. She also reports one episode of decreased dexterity and ability to write with her right hand that also improved on its own, but this was months back and cannot recall the exact time this occured. She denies headache, vision changes, speech changes, bowel/bladder problems, or weakness with these episodes or progressively. She denies history of stroke, seizure, HTN, HLD, DM, Smoking, or family history of neurological disease. She reports family history of cardiac disease in her father. Neuroimaging of MRI Brain wwo contrast is largely unrevealing. Neurological examination shows increased brisk reflexes in L>R, otherwise nonfocal and without deficit. Recommend: - Routine EEG to rule out any interictal or ictal discharges given episodic nature of spells that have been stereoptyped to the left side - MRI Cervical Spine wwo contrast given known history of cervical DDD with myleopathic signs (hyperreflexia) to rule out progression, nerve impingement, spinal stenosis, cord compression HPI Consult Data Date of Consult: 08/05/24 HPI Narrative HPI Narrative: MAGGIE CHÁVEZ is a 53 F with past medical history of cervical DDD (chronic neck and back pain) who is being evaluated for paresthesias. Patient reports the past few months of episodes of paraesthesias in her left face, left face + hand, and left face/arm/leg that have been occurring on and off and typically last hours with fluctuating severity she describes as pins/needles or tingling. She also reports one episode of decreased dexterity and ability to write with her right hand that also improved on its own. She denies headache, vision changes, speech changes, bowel/bladder problems, or weakness with these episodes or progressively. She denies history of stroke, seizure, HTN, HLD, DM, Smoking, or family history of neurological disease. She reports family history of cardiac disease in her father. Neuroimaging of MRI Brain wwo contrast is largely unrevealing. Neurological examination shows increased brisk reflexes in L>R, otherwise nonfocal and without deficit. PFSH Medical History (Updated 08/04/24 @ 15:[address] Georgie Mcknight, DO) Acute bronchitis, unspecified Wears glasses Wears contact lenses UTI (urinary tract infection) High cholesterol Pain Blackout Non-smoker History of echocardiogram Cardiology follow-up encounter History of irregular heartbeat Acute maxillary sinusitis, unspecified Home Medications ?Medication ?Instructions ?Recorded ?Last Taken ?Type Lactobacillus acidophilus 250 500 mmu cells PO DAILY 05/20/23 08/04/24 History million cell capsule (Probiotic Acidophilus) d-mannose 500 mg capsule (AZO 1,000 mg PO DAILY 05/20/23 08/04/24 History D-Mannose) estradiol 0.01% (0.1 mg/gram) 1 appful vaginal MOWEFR 05/20/23 Unknown History vaginal cream multivitamin-ferrous 2 tab PO DAILY 05/20/23 08/04/24 History fumarate-folic acid 18 mg-400 mcg tablet (One Daily Multivitamin with Iron (folic acid)) trimethoprim 100 mg tablet 100 mg PO QHS PRN UTI 05/20/23 07/31/24 History ascorbic acid (vitamin C) 500 mg 500 mg PO DAILY 08/04/24 Unknown History tablet (C-500) calcium carbonate (Calcium 600) 1,200 mg PO DAILY 08/04/24 08/04/24 History Allergy/AdvReac Type Severity Reaction Status Date / Time No Known Allergies Allergy Verified 08/04/24 12:55 Family History Other Heart disease Surgical History Hx of wisdom tooth extraction Hx of colonoscopy Social History (Updated 08/04/24 @ 15:00 by Yun Fox) household members: spouse Smoking Status: Never smoker Vital Signs Vital Signs Vital Signs: 08/04/24 15:30 08/04/24 18:45 08/04/24 19:50 Temperature 98.3 F Temperature Source Oral Pulse Rate 67 61 Pulse Strength Respiratory Rate 12 16 Respiratory Effort Normal Non-Labored Respiratory Depth Normal Respiratory Pattern Normal Blood Pressure 138/90 H 119/76 Blood Pressure Mean 105 90 Blood Pressure Source Monitor Blood Pressure Position Semi-Fowlers Blood Pressure Location Right Arm Pulse Ox 100 97 Oxygen Delivery Method Room Air Room Air Room Air 08/04/24 19:50 08/04/24 22:00 08/04/24 22:00 Temperature 98.4 F Temperature Source Temporal Pulse Rate 64 Pulse Strength Normal (2+) Respiratory Rate 18 Respiratory Effort Respiratory Depth Respiratory Pattern Blood Pressure 111/58 L Blood Pressure Mean 75 Blood Pressure Source Monitor Blood Pressure Position Semi-Fowlers Blood Pressure Location Right Arm Pulse Ox 96 98 Oxygen Delivery Method Room Air Room Air 08/05/24 02:00 08/05/24 02:05 08/05/24 06:00 Temperature 98.5 F 98.2 F Temperature Source Temporal Temporal Pulse Rate 64 61 Pulse Strength Respiratory Rate 18 18 Respiratory Effort Normal Non-Labored Respiratory Depth Normal Respiratory Pattern Normal Blood Pressure 98/70 103/67 Blood Pressure Mean 79 79 Blood Pressure Source Monitor Monitor Blood Pressure Position Supine Semi-Fowlers Blood Pressure Location Right Arm Right Arm Pulse Ox 97 97 Oxygen Delivery Method Room Air Room Air Room Air 08/05/24 07:48 08/05/24 09:53 08/05/24 15:14 Temperature 98.6 F 98.1 F Temperature Source Oral Oral Pulse Rate 66 59 L Pulse Strength Respiratory Rate 16 16 Respiratory Effort Respiratory Depth Respiratory Pattern Blood Pressure 112/86 H 118/85 H Blood Pressure Mean 94 96 Blood Pressure Source Monitor Monitor Blood Pressure Position Semi-Fowlers Semi-Fowlers Blood Pressure Location Right Arm Right Arm Pulse Ox 96 98 99 Oxygen Delivery Method Room Air Room Air Room Air Weight Weight: 62.9 kg Body Mass Index (BMI) 20.5 EEG Results Procedure Details EEG Procedure Details: MAGGIE CHÁVEZ is a 53 year old F with a past medical history of , who presents for evaluation of Electroencephalogram on DATE at TIME Physical Exam Neuro Neuro Narrative: No acute distress Breathing comfortably Alert and oriented x 4 Following commands Speech fluent EOMI Face symmetric tongue midline Moving all extremities antigravity without drift Sensation intact to light touch No dysmetria with finger to nose Hyperreflexia L>R (particularly LUE brachial and brachioradialis 3+ compared to RUE) Lab / Micro Data 08/05/24 06:29 08/05/24 06:29 Labs: Laboratory Results - last 24 hr 08/04/24 15:32: Troponin T Hi Sens 2 Hr < 6 08/04/24 18:00: Troponin T High Sens < 6 08/04/24 20:10: Troponin T Hi Sens 2 Hr 9 08/04/24 21:55: Troponin T Hi Sens 4Hr < 6 08/05/24 06:29: WBC 3.1 L, RBC 4.75, Hgb 14.2, Hct 42.4, MCV 89.3, MCH 29.9, MCHC 33.5, RDW Std Deviation 39.9, RDW Coeff of Rae 12.2, Plt Count 245, MPV 9.9, Immature Gran % (Auto) 0.300, Neut % (Auto) 48.2, Lymph % (Auto) 39.9, [place] % (Auto) 9.1, Eos % (Auto) 1.9, Baso % (Auto) 0.6, Absolute Neuts (auto) 1.5 L, Absolute Lymphs (auto) 1.23, Nucleated RBC % 0, PT 13.2, INR 1.0, Sodium 140, Potassium 4.1, Chloride 105, Carbon Dioxide 24.5, Anion Gap 10, BUN 14, Creatinine 0.88, Estim Creat Clear Calc 75.10, Est GFR (MDRD) Non-Af 80, BUN/Creatinine Ratio 16.3, Glucose 95, Hemoglobin A1c 5.5, Calcium 9.4, Triglycerides 73, Cholesterol 204 H, LDL Cholesterol, Calc 126, VLDL Cholesterol 15, HDL Cholesterol 63, Cholesterol/HDL Ratio 3.23, TSH 4.030 Imaging Radiology Impression Brain MRI 08/04/24 16:13 IMPRESSION: NORMAL BRAIN MRI WITHOUT AND WITH CONTRAST. Reading Location: [id number] Echocardiogram 08/04/24 16:13 Interpretation Summary Normal LV size. Left ventricular systolic function is normal. The left ventricular ejection fraction is 60 %. Structurally normal valves. Ordering Physician: Vanesa Salinas Referring Physician: Bia Carranza Performed By: Amy Robbins, [place], RVT Active Medications Active Medications Active Medications: Current Medications Generic Name Dose Route Start Last Admin Trade Name Freq PRN Reason Stop Dose Admin Acetaminophen 650 mg 08/04/24 17:53 08/05/24 06:18 Acetaminophen 325 Mg Tablet PO 650 mg Q6H PRN PRN Administration Pain 1-10 Or Fever >100.7 Albuterol Sulfate 2.5 mg 08/04/24 17:53 Albuterol 2.5 Mg/3 Ml Vial.Neb. INHALATION Q2H PRN PRN SOB &/OR WHEEZING Aspirin 81 mg 08/05/24 08:00 08/05/24 12:40 Aspirin 81 Mg Tab.Chew PO Not Given BREAKFAST JAYDEN Atorvastatin Calcium 80 mg 08/04/24 22:00 08/04/24 20:08 Atorvastatin Calcium 80 Mg Tablet PO Not Given QHS JAYDEN Hydralazine HCl 5 mg 08/04/24 17:53 Hydralazine 20 Mg/Ml Vial IV 08/05/24 17:54 Q30M PRN maintain BP parameters with HR <60 Sodium Chloride 100 mls @ 15 mls/hr 08/04/24 18:46 IV .Q6H40M PRN Saline Flush Labetalol HCl 10 - 20 mg 08/04/24 17:53 Labetalol 20mg/4ml Syringe IV 08/05/24 17:54 Q10M PRN PRN maintain BP parameters with HR >/=60 Lorazepam 0.5 mg 08/04/24 20:00 Lorazepam 0.5 Mg Tablet PO X1 PRN Anxiety with MRI Melatonin 10 mg 08/04/24 17:53 Melatonin 10 Mg Tablet PO QHS PRN PRN INSOMNIA Ondansetron HCl 4 mg 08/04/24 17:53 Ondansetron 4 Mg/2 Ml Vial IV Q8H PRN PRN NAUSEA/VOMITING Senna/Docusate Sodium 2 tablet 08/04/24 17:53 Senna/Docusate Sodium 1 Tablet PO BID PRN PRN Constipation NIHSS NIHSS Nursing Documentation NIHSS Nursing Documentation: NIHSS: Ischemic Stroke/TIA Start: 08/04/24 17:53 Text: For PCU Patients: NIH and Neuro Check every 4 Status: Complete hours, PRN and with change in RN caregiver. Freq: [id number] Protocol: Activity Type Activity Date Activity User E-sign Co-sign Detail Recorded Client Recorded Date Recorded By Document 08/05/24 09:53 [id number] 08/05/24 09:56 SS 08/05/24 09:53 NIH Stroke Scale [NIHSS] A score of 0 is normal or asymptomatic . Total possible score is 42. Inpatient: RN or Physician to activate a stroke alert for onset of new stroke symptoms or with NIHSS increase >/= 3 points. Following change in neurological status, NIHSS will be performed per physician order or more frequently PRN. -1a. Level of Consciousness 0 - Alert; keenly responsive -1b. LOC Questions 0 - Answers BOTH questions correctly -1c. LOC Commands 0 - Performs BOTH tasks correctly -2. Best Gaze 0 - Normal -3. Visual 0 - No visual loss -4. Facial Palsy 0 - Normal symmetrical movements -5a. Left Arm 0 - No drift; arm holds 90 ( or 45) degrees for full 10 seconds -5b. Right Arm 0 - No drift; arm holds 90 ( or 45) degrees for full 10 seconds -6a. Left Leg 0 - No drift; leg holds 30- degree position for full 5 seconds -6b. Right Leg 0 - No drift; leg holds 30- degree position for full 5 seconds -7. Limb Ataxia 0 - Absent -8. Sensory 0 - Normal; no sensory loss -9. Best Language 0 - No aphasia; normal -10. Dysarthria 0 - Normal -11. Extinction and Inattention 0 - No abnormality -Total 0 Query Text:A score of 0 is normal or asymptomatic. Total possible score is 42 . ED: Notify Physician for NIHSS increase by > / = 3 points. Inpatient: RN or Physician to activate a stroke alert for NIHSS increase of > / = 3 points. Coma Scale [Assess] -Eye Opening Spontaneous -Motor Obeys Commands -Verbal Oriented [Total] -Coma Scale Total 15 NIHSS 1a. Level of Consciousness: 0 - Alert; keenly responsive 1b. LOC Questions: 0 - Answers BOTH questions correctly 1c. LOC Commands: 0 - Performs BOTH tasks correctly 2. Best Gaze: 0 - Normal 3. Visual: 0 - No visual loss 4. Facial Palsy: 0 - Normal symmetrical movements 5a. Left Arm: 0 - No drift; arm holds 90 (or 45) degrees for full 10 seconds 5b. Right Arm: 0 - No drift; arm holds 90 (or 45) degrees for full 10 seconds 6a. Left Le - No drift; leg holds 30-degree position for full 5 seconds 6b. Right Le - No drift; leg holds 30-degree position for full 5 seconds 7. Limb Ataxia: 0 - Absent 8. Sensory: 0 - Normal; no sensory loss 9. Best Language: 0 - No aphasia; normal 10. Dysarthria: 0 - Normal 11. Extinction and Inattention: 0 - No abnormality Total: 0
[2024-08-05 17:00] VITALS: BMI 20.5
[2024-08-05 21:10] VITALS: BP 121/58; PULSE 62; RESP 18; TEMP 36.8; O2SAT 99
[2024-08-06 00:20] VITALS: BMI 20.5
[2024-08-06 03:09] VITALS: BP 105/55; PULSE 60; RESP 18; TEMP 36.1; O2SAT 99
[2024-08-06 07:00] VITALS: PULSE 80
[2024-08-06 07:48] VITALS: O2SAT 96
[2024-08-06 08:47] VITALS: BP 103/68; PULSE 64; RESP 16; TEMP 36.6; O2SAT 100
--- NOTE | 2024-08-06 10:15 | DCINST_ITS ---
Discharge Instructions Diet Discharge Diet: No restrictions DC O2, CPAP, BIPAP needs Home O2 Discharge instructions: No Dressing / Incision Discharge Activity: Return to Normal Activity Weight Bearing Status: Weight bearing as tolerated Dressing / Incision Call your doctor if you observe: Fever of 101 or Higher, Coldness, Increased Pain, Numbness or Tingling, Change in Color, Inability to urinate, Inability to have a bowel movement, Shortness of breath, Dizziness, Fainting spells, Swelling in the ankles, Chest pain, Prolonged hiccupping, Increased palpitations (irregular heartbeat) and Calf discomfort Follow Up Care When: IN 2 WEEKS Test Results: Test results from this visit will be discussed in further detail at your follow- up appointment, if applicable. Discharge Plan Admission Admit Date/Time: 08/04/24 16:06 Primary Reason for Your Visit: Left facial numbness, stroke ruled out. Attending Provider: Douglas Appiah Primary Care Provider: Bia Carranza Consulting Providers: Scooter Panda; Pawel Ray; Sandra Gillis; Stephanie Callahan; Rachel Tony; Barrington Rivera; [place]; Kemal Carnes; Marcus Blanchard; Jean Caba; Sandra Hayward; Deven Ku; Shannan Reyes; Jose Lorenzana; Dayan Romeo; Paramjit Strong; Dinesh Mayer; Ananth Bran; Christina Perea; Jocelyn Brown; Vanesa Salinas Discharge Orders/Prescriptions Prescriptions: Continued estradiol 0.01 % (0.1 mg/gram) cream 1 appful VAGINAL MOWEFR Patient Comments: DOES ONCE A WEEK ON FRIDAY trimethoprim 100 mg tablet 100 mg PO QHS PRN (Reason: UTI) Patient Comments: take 1 tablet by mouth at bedtime One Daily Multivit-Iron(folic) 18-400 mg-mcg tablet 2 tab PO DAILY AZO D-Mannose 500 mg capsule 1,000 mg PO DAILY Probiotic Acidophilus 250 million cell capsule 500 mmu cells PO DAILY ascorbic acid (vitamin C) [C-500] 500 mg tablet 500 mg PO DAILY calcium carbonate [Calcium 600] 600 mg calcium (1,500 mg) tablet 1,200 mg PO DAILY Referrals / Follow Up: Bia Carranza, SUSTAINABILITY ANALYST-C [Primary Care Provider] - Disposition Disposition (needs filled in before D/C Order can be placed): Home, Self Care
[2024-08-06 10:45] VITALS: PULSE 85
--- NOTE | 2024-08-06 11:35 | NEURO.CONS ---
Assessment and Plan: Neuro Assessment/Plan This is a 53 year old female whom teleneurology is consulted for episodic L>R paresthesias. MRI cervical spine reviewed with the patient today. There is degenerative disc disease, most significant C5-C7. No significant spinal stenosis or foraminal narrowing. Cervical cord is normal. There is no evidence for demyelination/multiple sclerosis. Recommend follow up outpatient neurology for consideration for EMG and QSART testing. I personally attended this patient and spent a total time of 45 minutes evaluating this patient including clinical assessment, review of chart, medical history imaging, and determining appropriate treatment and workup. HPI Consult Data Date of Consult: 08/06/24 HPI Narrative HPI Narrative: This is a 53 year old female whom teleneurology is consulted on for episodic left>right paresthesias, described as episodes of numbness, pins and needles. This occurs most comonly on the left, but may have involved the right at somepoint. Involvement of face, arm and leg can occur. Can last a few minutes to a few hours. She underwent MRI brain and was evalauted by Dr. New yesterday for possible TIA event. Dr. New felt TIA unlikely given repeat occurrences without evidence for ischemia on MRI brain. Please see her consultation for further details. Currently, symptoms have resolved. [facility] Medical History (Updated 08/04/24 @ 15:[address] Georgie Mcknight, ) Acute bronchitis, unspecified Wears glasses Wears contact lenses UTI (urinary tract infection) High cholesterol Pain Blackout Non-smoker History of echocardiogram Cardiology follow-up encounter History of irregular heartbeat Acute maxillary sinusitis, unspecified Home Medications ?Medication ?Instructions ?Recorded ?Last Taken ?Type Lactobacillus acidophilus 250 500 mmu cells PO DAILY 05/20/23 08/04/24 History million cell capsule (Probiotic Acidophilus) d-mannose 500 mg capsule (AZO 1,000 mg PO DAILY 05/20/23 08/04/24 History D-Mannose) estradiol 0.01% (0.1 mg/gram) 1 appful vaginal MOWEFR 05/20/23 Unknown History vaginal cream multivitamin-ferrous 2 tab PO DAILY 05/20/23 08/04/24 History fumarate-folic acid 18 mg-400 mcg tablet (One Daily Multivitamin with Iron (folic acid)) trimethoprim 100 mg tablet 100 mg PO QHS PRN UTI 05/20/23 07/31/24 History ascorbic acid (vitamin C) 500 mg 500 mg PO DAILY 08/04/24 Unknown History tablet (C-500) calcium carbonate (Calcium 600) 1,200 mg PO DAILY 08/04/24 08/04/24 History Allergy/AdvReac Type Severity Reaction Status Date / Time No Known Allergies Allergy Verified 08/04/24 12:55 Family History Other Heart disease Surgical History Hx of wisdom tooth extraction Hx of colonoscopy Social History (Updated 08/04/24 @ 15:00 by Yun Fox) household members: spouse Smoking Status: Unknown if ever smoked Vital Signs Vital Signs Vital Signs: 08/05/24 15:14 08/05/24 19:35 08/05/24 21:10 Temperature 98.1 F 98.3 F Temperature Source Oral Temporal Pulse Rate 59 L 62 Pulse Strength Respiratory Rate 16 18 Respiratory Effort Normal Non-Labored Respiratory Depth Normal Respiratory Pattern Normal Blood Pressure 118/85 H 121/58 H Blood Pressure Mean 96 79 Blood Pressure Source Monitor Monitor Blood Pressure Position Semi-Fowlers Semi-Fowlers Blood Pressure Location Right Arm Right Arm Pulse Ox 99 99 Oxygen Delivery Method Room Air Room Air Room Air 08/05/24 21:10 08/06/24 03:09 08/06/24 03:15 Temperature 97.0 F L Temperature Source Temporal Pulse Rate 60 Pulse Strength Normal (2+) Respiratory Rate 18 Respiratory Effort Normal Non-Labored Respiratory Depth Normal Respiratory Pattern Normal Blood Pressure 105/55 L Blood Pressure Mean 71 Blood Pressure Source Monitor Blood Pressure Position Semi-Fowlers Blood Pressure Location Left Arm Pulse Ox 99 Oxygen Delivery Method Room Air Room Air 08/06/24 07:00 08/06/24 07:48 08/06/24 08:43 Temperature Temperature Source Pulse Rate 80 Pulse Strength Normal (2+) Respiratory Rate Respiratory Effort Respiratory Depth Respiratory Pattern Blood Pressure Blood Pressure Mean Blood Pressure Source Blood Pressure Position Blood Pressure Location Pulse Ox 96 Oxygen Delivery Method Room Air 08/06/24 08:43 08/06/24 08:47 08/06/24 10:45 Temperature 97.9 F Temperature Source Oral Pulse Rate 64 85 Pulse Strength Respiratory Rate 16 Respiratory Effort Normal Non-Labored Respiratory Depth Normal Respiratory Pattern Normal Blood Pressure 103/68 Blood Pressure Mean 79 Blood Pressure Source Monitor Blood Pressure Position Semi-Fowlers Blood Pressure Location Right Arm Pulse Ox 100 Oxygen Delivery Method Room Air Room Air Weight Weight: 62.9 kg Body Mass Index (BMI) 20.5 EEG Results Procedure Details EEG Procedure Details: Inpatient routine EEG performed at [facility]: Patient: Maxine Zuniga Patient ID: [id number] Date of : 1970 Sex: Female Age: 53 years old Study start time: 08/06/2024 07:10 AM End Time: 08/06/2024 07:30 AM History: 53 year old female with episodes concerning for seizures. Indication: evaluate for possible seizure Medication: not on ASM Technical Description: This is a 18-channel digital EEG recording with time-locked video and single-channel electrocardiogram. Electrodes are placed according to the 10 to 20 International System. Additional T1 and T2 electrodes were placed. The patient was monitored continuously by EEG technicians by video and EEG recording was reviewed intermittently with annotations. Portions of this record are reviewed using bandpass filters of 1 to 70 Hz and sensitivity of 7mV/mm. EEG DESCRIPTION Background: This recording was obtained during awake and drowsy state. In the maximally alert state, a posterior dominant rhythm was a symmetric, reactive, well-modulated 8 Hz with a normal frequency-amplitude gradient. During drowsiness, there was attenuation of the waking background. Stage II sleep architecture was not captured. Activation Procedures: Photic stimulation and Hyperventilation induced normal physiological response. Sporadic Epileptiform Discharges: none Focal slow activity: none Rhythmic or Periodic activity: none Seizures: none Patient Events: none EEG DIAGNOSIS Normal EEG CLINICAL INTERPRETATION This routine EEG is normal. No epileptiform discharges or seizures were noted during this period of recording. EEG performed by: [facility], [facility] Physical Exam Neuro Neuro Narrative: Mental Status: The patient was alert and interactive with the team Language: speech is fluent and without dysarthria. Cranial Nerves: EOMI, no nystagmus is appreciated, face is symmetric at rest and with activation, hearing is intact to conversational tone, tongue protrudes midline. Facial sensation is intact to light touch, and equal bilaterally. Motor: ?All extremities are antigravity. No pronator drift noted in upper or lower extremities. Sensation- Intact to light touch bilaterally Coordination: No dysmetria on [id number] No truncal ataxia Lab / Micro Data 04/24/25 06:29 08/05/24 06:29 Imaging Radiology Impression Echocardiogram 08/04/24 16:13 Interpretation Summary Normal LV size. Left ventricular systolic function is normal. The left ventricular ejection fraction is 60 %. Structurally normal valves. Ordering Physician: Vanesa Salinas Referring Physician: Bia Carranza Performed By: Amy Robbins, [place], RVT Cervical Spine MRI 08/05/24 13:13 IMPRESSION: 1. Normal cord signal. No pathologic enhancement. 2. Mild multilevel spondylosis without significant spinal stenosis or foraminal narrowing. Reading Location: [facility] Active Medications Active Medications Active Medications: Current Medications Generic Name Dose Route Start Last Admin Trade Name Freq PRN Reason Stop Dose Admin Acetaminophen 650 mg 08/04/24 17:53 08/05/24 06:18 Acetaminophen 325 Mg Tablet PO 650 mg Q6H PRN PRN Administration Pain 1-10 Or Fever >100.7 Albuterol Sulfate 2.5 mg 08/04/24 17:53 Albuterol 2.5 Mg/3 Ml Vial.Neb. INHALATION Q2H PRN PRN SOB &/OR WHEEZING Aspirin 81 mg 08/05/24 08:00 08/06/24 08:42 Aspirin 81 Mg Tab.Chew PO Not Given BREAKFAST JAYDEN Atorvastatin Calcium 80 mg 08/04/24 22:00 08/05/24 21:39 Atorvastatin Calcium 80 Mg Tablet PO Not Given QHS JAYDEN Sodium Chloride 100 mls @ 15 mls/hr 08/04/24 18:46 IV .Q6H40M PRN Saline Flush Lorazepam 0.5 mg 08/04/24 20:00 Lorazepam 0.5 Mg Tablet PO X1 PRN Anxiety with MRI Melatonin 10 mg 08/04/24 17:53 Melatonin 10 Mg Tablet PO QHS PRN PRN INSOMNIA Ondansetron HCl 4 mg 08/04/24 17:53 Ondansetron 4 Mg/2 Ml Vial IV Q8H PRN PRN NAUSEA/VOMITING Senna/Docusate Sodium 2 tablet 08/04/24 17:53 Senna/Docusate Sodium 1 Tablet PO BID PRN PRN Constipation NIHSS NIHSS Nursing Documentation NIHSS Nursing Documentation: NIHSS: Ischemic Stroke/TIA Start: 08/04/24 17:53 Text: For PCU Patients: NIH and Neuro Check every 4 Status: Complete hours, PRN and with change in RN caregiver. Freq: [id number] Protocol: Activity Type Activity Date Activity User E-sign Co-sign Detail Recorded Client Recorded Date Recorded By Document 08/05/24 09:53 SS [id number] 08/05/24 09:56 SS 08/05/24 09:53 NIH Stroke Scale [NIHSS] A score of 0 is normal or asymptomatic . Total possible score is 42. Inpatient: RN or Physician to activate a stroke alert for onset of new stroke symptoms or with NIHSS increase >/= 3 points. Following change in neurological status, NIHSS will be performed per physician order or more frequently PRN. -1a. Level of Consciousness 0 - Alert; keenly responsive -1b. LOC Questions 0 - Answers BOTH questions correctly -1c. LOC Commands 0 - Performs BOTH tasks correctly -2. Best Gaze 0 - Normal -3. Visual 0 - No visual loss -4. Facial Palsy 0 - Normal symmetrical movements -5a. Left Arm 0 - No drift; arm holds 90 ( or 45) degrees for full 10 seconds -5b. Right Arm 0 - No drift; arm holds 90 ( or 45) degrees for full 10 seconds -6a. Left Leg 0 - No drift; leg holds 30- degree position for full 5 seconds -6b. Right Leg 0 - No drift; leg holds 30- degree position for full 5 seconds -7. Limb Ataxia 0 - Absent -8. Sensory 0 - Normal; no sensory loss -9. Best Language 0 - No aphasia; normal -10. Dysarthria 0 - Normal -11. Extinction and Inattention 0 - No abnormality -Total 0 Query Text:A score of 0 is normal or asymptomatic. Total possible score is 42 . ED: Notify Physician for NIHSS increase by > / = 3 points. Inpatient: RN or Physician to activate a stroke alert for NIHSS increase of > / = 3 points. Coma Scale [Assess] -Eye Opening Spontaneous -Motor Obeys Commands -Verbal Oriented [Total] -Coma Scale Total 15
--- NOTE | 2024-08-06 11:57 | PCM.DC.SUM ---
Providers Date of Admission: 08/04/24 Date of Discharge: 08/06/24 Primary Care Physician: JASEN Butts Consultations 08/04/24 17:53 Consult: Tele-Neurology Routine Consulting Provider: [facility] Reason for Consult: Acute Ischemic Stroke/TIA EMERGENT Consult: No MD Notified: Yes Date Notified: 08/04/24 Time Notified: 18:44 Method of Notification: Answering Service Nursing Unit Staff Notify [facility] of Tele-Neurology Consult: Yes Reason For Visit: CVA RULE OUT Diagnosis Discharge Diagnosis (1) Paresthesias: Status: Acute Code(s): R20.2 - Paresthesia of skin Plan 52-year-old female was admitted with paresthesia of left side of face and left hand. Had similar symptoms with intermittent episodes for the past several months including facial drooping. # Left face and left arm paresthesias: Patient was admitted on telemetry. Normal sinus rhythm. Serial troponins negative. ACS ruled out. CT head and neck shows no LVO. MRI brain with and without contrast reported normal. Stroke protocol ordered followed but a stroke workup was negative. Fasting lipid profile in normal limit. Patient has intermittent left hand and face numbness but Tinel sign was negative 2D echo reported normal Patient was seen by the [facility] neurologist and recommended MRI C-spine with and without contrast with history of cervical degenerative disc disease and hyperreflexia of the left leg. Routine EEG to rule out interictal cortical discharges. Patient wanted to go home in the morning and pursue workup as mentioned above as an outpatient but later she changed her mind and decided to stay. Above tests ordered. 08/06: Patient had MRI with and without contrast C-spine which shows mild degenerative changes similar to MRI of 2013. No significant spinal stenosis or foraminal narrowing. Cervical cord is normal. No evidence of demyelination/multiple sclerosis. Recommended outpatient neurology for EMG and QSART test. #DVT ppx: SCDs Discharge medication reconciliation done. Discharge follow-up instructions completed. Discharge process discussed with the patient and all questions were answered to patient's satisfaction. Follow with PCP in 1 to 2 weeks Total time spent, exact 35 minutes on discharge meds reconciliation, examination, coordination of care with nurses and ancillary staff, review of imaging and blood test and discussion with the patient on follow-up instructions. Medications at Discharge Home Medications Lactobacillus acidophilus 250 million cell capsule (Probiotic Acidophilus) 500 mmu cells PO DAILY 05/20/23 d-mannose 500 mg capsule (AZO D-Mannose) 1,000 mg PO DAILY 05/20/23 estradiol 0.01% (0.1 mg/gram) vaginal cream 1 appful vaginal MOWEFR 05/20/23 multivitamin-ferrous fumarate-folic acid 18 mg-400 mcg tablet (One Daily Multivitamin with Iron (folic acid)) 2 tab PO DAILY 05/20/23 trimethoprim 100 mg tablet 100 mg PO QHS PRN UTI 05/20/23 ascorbic acid (vitamin C) 500 mg tablet (C-500) 500 mg PO DAILY 08/04/24 calcium carbonate (Calcium 600) 1,200 mg PO DAILY 08/04/24 Physical Exam Narrative Seen and examined. Currently asymptomatic. History of chronic neck tightness but denies pain Physical exam General: Alert, Oriented x3, Cooperative. BMI normal 20.5 kg/m? HEENT: Atraumatic, PERRLA, EOMI, Normocephalic Oral: Oral mucosa moist. No Gingival or Mucosal Lesions/ Ulcerations Neck: Supple, No JVD, Negative Carotid Bruits Chest wall/Lungs: Air entry equal in bilateral lung bases. No crepitation/rhonchi Cardiovascular: Regular rate, Regular Rhythm, Normal S1, Normal S2, No M/G/R Abdomen: Bowel Sounds Present, Soft, Non Tender, Non-Distended : No dysuria. No renal angle tenderness. No suprapubic tenderness. Extremities: No edema, Capillary Refill Less than 3 Seconds Skin: No rashes, No breakdown Musculoskeletal: No Tenderness to Palpation of Joints or Extremities Neurological: Cranial nerves II-XII grossly intact, DTR 2+/4. Sensory exam to touch equal both sides. Brisk bilateral knee tendon reflexes Psych/Mental Status: Normal Affect, Appropriate. Weight / BMI Weight Weight: 138 lb 10.732 oz Body Mass Index (BMI) 20.5 ABG / Lab / Microbiology Data 08/05/24 06:29 08/05/24 06:29 Radiography Diagnostic Testing: Radiology Impression Cervical Spine MRI 08/05/24 13:13 IMPRESSION: 1. Normal cord signal. No pathologic enhancement. 2. Mild multilevel spondylosis without significant spinal stenosis or foraminal narrowing. Reading Location: [facility]/ Instructions Discharge Diet: No restrictions Weight Bearing Status: Weight bearing as tolerated Call your doctor if you observe: Fever of 101 or Higher, Coldness, Increased Pain, Numbness or Tingling, Change in Color, Inability to urinate, Inability to have a bowel movement, Shortness of breath, Dizziness, Fainting spells, Swelling in the ankles, Chest pain, Prolonged hiccupping, Increased palpitations (irregular heartbeat) and Calf discomfort DC O2, CPAP, BIPAP Needs Home O2 Discharge instructions: No When: IN 2 WEEKS Meaningful Use Info Meaningful Use Meaningful Use Diagnoses (Choose all that apply): None applicable Ischemic Stroke Statin Dosing Therapy Reference: STATIN DOSE THERAPY REFERENCE: * Patients > 75 years receive moderate or high dose statin therapy. * Patients 75 years or YOUNGER should receive HIGH intensity statin dose unless contraindicated. You will be required to document reason for non-treatment if statin daily dose does not meet guidelines. HIGH DOSE STATIN THERAPY DAILY Atorvastatin > than or = to 40 mg Rosuvastatin > than or = to 20 mg Amlodipine + Atorvastatin > than or = to 2.5/40 mg Ezetimibe + Simvastatin 10/80 mg Simvastatin 80mg Discharge Plan Admission Admit Date/Time: 08/04/24 16:06 Primary Reason for Your Visit: Left facial numbness, stroke ruled out. Attending Provider: Douglas Appiah Primary Care Provider: Bia Carranza Consulting Providers: Scooter Panda; Pawel Ray; Sandra Gillis; Stephanie Callahan; Rachel Tony; Barrington Rivera; Maine New; Kemal Carnes; Marcus Blanchard; Jean Caba; Sandra Hayward; Deven Ku; Shannan Reyes; Jose Lorenzana; Dayan Romeo; Paramjit Strong; Dinesh Mayer; Ananth Bran; Christina Perea; Jocelyn Brown; Vanesa Salinas; Katherine Kinney; Kyler Payne; Alvina Ngo; KIP GOFF; Jonny Tucker; Traci Canas Discharge Orders/Prescriptions Prescriptions: Continued estradiol 0.01 % (0.1 mg/gram) cream 1 appful VAGINAL MOWEFR Patient Comments: DOES ONCE A WEEK ON FRIDAY trimethoprim 100 mg tablet 100 mg PO QHS PRN (Reason: UTI) Patient Comments: take 1 tablet by mouth at bedtime One Daily Multivit-Iron(folic) 18-400 mg-mcg tablet 2 tab PO DAILY AZO D-Mannose 500 mg capsule 1,000 mg PO DAILY Probiotic Acidophilus 250 million cell capsule 500 mmu cells PO DAILY ascorbic acid (vitamin C) [C-500] 500 mg tablet 500 mg PO DAILY calcium carbonate [Calcium 600] 600 mg calcium (1,500 mg) tablet 1,200 mg PO DAILY Referrals / Follow Up: Bia Carrazna, [employer] [Primary Care Provider] - Disposition Disposition (needs filled in before D/C Order can be placed): Home, Self Care Charges/Coding Visit Charges Inpatient E&M: 50651 Disch Hosp >30min
[2024-08-06 13:58] VITALS: BP 119/76; PULSE 58; RESP 16; TEMP 36.5; O2SAT 100
== END 2024-08-06 14:14 | disposition home or self-care (01) ==
LOC: ED 15:10 → PCU 17:10
PROVIDERS: Admitting Provider Internal Medicine; Emergency Provider Emergency Medicine; PCP Nurse Practitioner Family; Visit Provider Internal Medicine
DX: R20.2 Paresthesia of skin (principal); E78.00 Pure hypercholesterolemia, unspecified; R27.9 Unspecified lack of coordination; R20.0 Anesthesia of skin; Z79.899 Other long term (current) drug therapy; R29.810 Facial weakness; M50.322 Other cervical disc degeneration at C5-C6 level
CPT/HCPCS: 36415; 70450; 70496; 70498; 70553; 72156; 80048; 80061; 83036; 84443; 84484; 85025; 85610; 85730; 93005; 93306; 94762; 95819; 99221; 99285; A9575; Q9967; A4216; G0378